=== PATIENT | female | born 1955 | race Caucasian/White ===

== ENCOUNTER → 2016-06-17 | Outpatient (CLI) | payer OTHER ==
[~2016-06-17] MED LIST: ACET-1256 PO; ALBU1AER9 INH; ASPCH81; ASPI1TAB83 PO; ATOR-24 PO; B-CO1CAP17 PO; CALC500C70 PO; CHOL100027 PO; CLC6 PO; CLON0.5T3 PO; CLR10 PO; CMD5 PO; COLC1TAB25 PO; CTP1CL PO; CYM60 PO; DICL1GEL34 TOP; FLUT1INH INH; GLUC500C4 PO; HYOS1TAB PO; IRON1CAP2 PO; LANS30CA12 PO; LANS30CA63 PO; LEVO-459 PO; LISI-461 PO; LISI-791 PO; LPT40 PO; MAGN250T3 PO; METH4PAK PO; METO50TA16 PO; METO50TA17 PO; MOME220A INH; MRLP17 PO; MRLP527 PO; MULTTAB PO; NTRSLP4 SL; OMEG10007 PO; ONDA4TAB46 PO; RANI1TAB75 PO; RGL/5 PO; SNG10 PO; SPRIN/30 INH; TIOTCAP INH; TRAM-10 PO; VNTHFA/IN INH; WARF2TAB PO; WARF4TAB43 PO
[2016-06-17 15:37] LABS: HEMATOCRIT 34.8 % (37-47); MEAN CELL VOLUME 87.2 fL (80-100); MEAN CORPUSCULAR HEMOGLOBIN 31.1 pg (25-34); MEAN CORPUSCULAR HGB CONC 35.6 g/dl (32-36); MEAN PLATELET VOLUME 8.6 fL (7.4-10.4); PLATELET COUNT 182 K/uL (130-400); RED BLOOD COUNT 3.99 M/uL (4.2-5.4)
[2016-06-17 16:11] LABS: ALB/GLOB RATIO 1.6 (0.9-2); ALKALINE PHOSPHATASE 69 U/L (45-117); ALT/SGPT 43 U/L (12-78); AST/SGOT 35 U/L (15-37); BLOOD UREA NITROGEN 10 mg/dl (7-18); BUN/CREATININE RATIO 13.6 (10-20); CALCIUM 8.9 mg/dl (8.5-10.1); CARBON DIOXIDE 31 mmol/L (21-32); CHLORIDE 99 mmol/L (98-107); CREATININE 0.77 mg/dl (0.60-1.20); GLUCOSE 76 mg/dl (70-99); POTASSIUM 4.4 mmol/L (3.5-5.1); SODIUM 136 mmol/L (136-145)
== END | disposition home or self-care (01) ==
LOC: C.LAB1850 14:38
PROVIDERS: ATTEND Physician Assistant
DX: I25.10 Atherosclerotic heart disease of native coronary artery without angina pectoris (principal)

== ENCOUNTER 2016-09-28 14:52 | Inpatient (IN) | payer OTHER ==
[~2016-09-28] VITALS: Ht 147.3 cm; Wt 54.0 kg
[~2016-09-28 14:52] MED LIST changes: -ASPI1TAB83 PO; -ATOR-24 PO; -CLON0.5T3 PO; -COLC1TAB25 PO; -CTP1CL PO; -CYM60 PO; -DICL1GEL34 TOP; -FLUT1INH INH; -HYOS1TAB PO; -IRON1CAP2 PO; -LANS30CA63 PO; -LEVO-459 PO; -LISI-461 PO; -MAGN250T3 PO; -METH4PAK PO; -METO50TA17 PO; -MRLP527 PO; -MULTTAB PO; -RANI1TAB75 PO; -RGL/5 PO; -SNG10 PO; -SPRIN/30 INH; -TRAM-10 PO; -VNTHFA/IN INH; -WARF2TAB PO; -WARF4TAB43 PO
[2016-09-28] MEDS ORDERED: SODIUM CHLORIDE 0.9% 1000ML 1,000 ML IV STA (15:10)
[2016-09-28 15:44] LABS: INR 1.8 (0.9-1.1); PARTIAL THROMBOPLASTIN RATIO 1.5; PROTHROMBIN TIME (PATIENT) 20.2 SECONDS (9.0-12.0)
--- NOTE | 2016-09-28 15:49 | DIAGNOSTIC IMAGING REPORT ---
CHEST ONE VIEW PORTABLE CLINICAL HISTORY: Weakness. COMPARISON STUDY: Chest radiograph March 14, 2014 [place] FINDINGS: There are median sternotomy wires and a probable prosthetic cardiac valve. There is no pneumothorax. A small right pleural effusion is noted. There is mild right basilar opacity. Linear left lung opacity suggest atelectasis. There is no evidence of edema. IMPRESSION: 1. Small right pleural effusion with right basilar opacity which could reflect consolidation or atelectasis. Radiographic follow-up to ensure resolution is recommended. 2. Stable cardiomegaly without evidence of pulmonary edema. Electronically signed by: Fito Youngblood M.D. 09/28/2016 3:48 PM Dictated Date/Time: 09/28/2016 3:47 PM
[2016-09-28 15:53] LABS: ALT/SGPT 38 U/L (12-78); AST/SGOT 20 U/L (15-37); BLOOD UREA NITROGEN 9 mg/dl (7-18); BUN/CREATININE RATIO 9.9 (10-20); CALCIUM 8.3 mg/dl (8.5-10.1); CARBON DIOXIDE 24 mmol/L (21-32); CHLORIDE 97 mmol/L (98-107); CREATININE 0.91 mg/dl (0.60-1.20); GLUCOSE 98 mg/dl (70-99); MAGNESIUM 2.3 mg/dl (1.8-2.4); POTASSIUM 4.1 mmol/L (3.5-5.1); SODIUM 133 mmol/L (136-145)
[2016-09-28 16:01] LABS: ALKALINE PHOSPHATASE 78 U/L (45-117); CKMB/CK RATIO 3.8 (0-3.0); THYROID STIMULATING HORMONE 0.241 uIu/ml (0.300-4.500)
[2016-09-28] MEDS ORDERED: COLC1TAB25 PO (16:03)
[2016-09-28] MEDS ORDERED: METO50TA17 PO (16:03)
[2016-09-28] MEDS ORDERED: LISI-461 PO (16:03)
[2016-09-28] MEDS ORDERED: MAGN250T3 PO (16:03)
[2016-09-28] MEDS ORDERED: CTP1CL PO (16:03)
[2016-09-28] MEDS ORDERED: ATOR-24 PO (16:03)
[2016-09-28] MEDS ORDERED: WARF2TAB PO (16:03)
[2016-09-28] MEDS ORDERED: SPRIN/30 INH (16:03)
[2016-09-28] MEDS ORDERED: DICL1GEL34 TOP (16:03)
[2016-09-28] MEDS ORDERED: HYOS1TAB PO (16:03)
[2016-09-28] MEDS ORDERED: WARF4TAB43 PO (16:03)
[2016-09-28] MEDS ORDERED: VNTHFA/IN INH (16:03)
[2016-09-28] MEDS ORDERED: SNG10 PO (16:03)
[2016-09-28] MEDS ORDERED: FLUT1INH INH (16:03)
[2016-09-28] MEDS ORDERED: CYM60 PO (16:03)
[2016-09-28] MEDS ORDERED: ASPI1TAB83 PO (16:03)
[2016-09-28] MEDS ORDERED: RANI1TAB75 PO (16:03)
[2016-09-28] MEDS ORDERED: RGL/5 PO (16:03)
[2016-09-28] MEDS ORDERED: LANS30CA63 PO (16:03)
[2016-09-28] MEDS ORDERED: MRLP527 PO (16:03)
[2016-09-28] MEDS ORDERED: B-CO1CAP17 PO (16:03)
[2016-09-28 16:31] LABS: MEAN CELL VOLUME 87.4 fL (80-100); MEAN CORPUSCULAR HEMOGLOBIN 30.1 pg (25-34); MEAN CORPUSCULAR HGB CONC 34.4 g/dl (32-36); MEAN PLATELET VOLUME 8.4 fL (7.4-10.4); PLATELET COUNT 404 K/uL (130-400); RED BLOOD COUNT 4.12 M/uL (4.2-5.4); WHITE BLOOD COUNT 14.72 K/uL (4.8-10.8)
[2016-09-28] MEDS ORDERED: LEVAQUIN 750MG / 150ML D5W IV STA (16:39)
[2016-09-28 16:47] LABS: URINE APPEARANCE CLEAR (CLEAR); URINE BILIRUBIN NEG (NEG); URINE COLOR DK YELLOW; URINE EPITHELIAL CELL AUTO >30 /lpf (0-5); URINE NITRITE NEG (NEG); URINE SPECIFIC GRAVITY 1.017 (1.000-1.030); UROBILINOGEN NEG (NEG)
[2016-09-28 16:56] LABS: MANUAL MICROSCOPIC REQUIRED? NO; REVIEW REQ? YES
[2016-09-28 17:16] LABS: BASO % 0.1 %; BASO ABS # 0.01 K/uL (0-0.2); COMPLETE YES; EOS % 0.5 %; IG% 1.2 %; LYMPH % 5.1 %; LYMPH ABS # 0.75 K/uL (1.2-3.4); MONO % 3.1 %
[2016-09-28 17:44] VITALS: BP 130/77; PULSE 91; TEMP 36.9; O2SAT 96; Ht 147.3 cm; Wt 54.0 kg
[2016-09-28] MEDS ORDERED: ONDANSETRON INJ 2 MG/ML 2 ML VIAL IV PRN (18:15)
[2016-09-28] MEDS ORDERED: ALBUT/IPRATROP 3MG/0.5MG NEB 3 ML VIAL INH PRN (18:15)
[2016-09-28] MEDS ORDERED: ACETAMINOPHEN 325 MG TAB PO PRN (18:15)
[2016-09-28] MEDS ORDERED: ALBUTEROL HFA 8 GM INHALER INH PRN (18:30)
[2016-09-28] MEDS ORDERED: NITROGLYCERIN 0.4 MG SL PER TAB CHARGE SL PRN (18:30)
--- NOTE | 2016-09-28 18:43 | History and Physical ---
History & Physical Date & Time of Service: Sep 28, 2016 at 18:42 Chief Complaint: Sore throat, rash Primary Care Physician: Radha Rodriguez M.D. History of Present Illness Source: patient This is a 61yo F with a PMH of CAD s/p STEMI with balloon angioplasty in 2013, cardiomyopathy, h/o multiple valvular disease with aortic valve replacement (on coumadin), h/o Vfib, COPD (mild), HLD and JC who presents to the ED with a sore throat, generalized weakness and a rash over entire body. Patient started to experience sore throat, cough and weakness a week ago that has since worsened. Went to see [facility] Weinberg a few days ago and was started on a Z-Pack and Steroids. Yesterday, patient started to develop a rash on arms and legs that has continued to spread to trunk and face. Patient also started to experience chills, swelling in hands and feet, a decrease in appetite, diarrhea (3x/day) and some MSK pain in shoulders and back. Returned to PCP today for the worsening rash and was directed to the ED for further evaluation. Denies a history of similar rashes and states that it neither is painful or itchy. Denies any headaches, visual disturbances, difficulty swallowing, rhinorrhea, chest pain, dyspnea, SOB, wheezing, abdominal pain, n/v, difficulty ambulating or myalgias. Past Medical/Surgical History Medical Problems: (1) COPD (chronic obstructive pulmonary disease) Status: Chronic (2) Esophageal reflux Status: Chronic (3) Generalized anxiety disorder Status: Chronic (4) Osteoarthrosis Status: Chronic (5) Tricuspid valve disease Status: Chronic Family History Kidney disease SISTER Social History Smoking Status: Former Smoker Drug Use: none Marital Status: Housing status: lives with family Multi-Drug Resistant Organisms History of MDRO: No Allergies Coded Allergies: Paroxetine (Verified Allergy, Unknown, UNKNOWN, 03/13/14) INFO FROM [facility] Sumatriptan (Verified Allergy, Unknown, UNKNOWN, 03/13/14) INFO FROM [facility] Citalopram (Verified Adverse Reaction, Intermediate, AGITATION, BURNING SENSATION, 02/10/11) Dicyclomine (Verified Adverse Reaction, Intermediate, HEADACHE, 02/10/11) Home Medications Scheduled Aspirin (Aspirin), 1 TAB PO DAILY Atorvastatin (Lipitor), 40 MG PO DAILY Calcium/Vitamin D (Os-David 500 Plus D), 2 TAB PO DAILY Clonidine Hcl (Catapres), 0.1 MG PO HS Colchicine (Colchicine), 1 TAB PO BID Diclofenac Sodium (Topical) (Diclofenac Sodium), 2 GM TOP BID Duloxetine HCl (Duloxetine HCl), 60 MG PO DAILY Fish Oil ([place]-3), 1 CAP PO BID Fluticasone Furoate-Vilanterol (Breo Ellipta), 1 PUFF INH DAILY Iron Combinations (Iron Complex), 1 CAP PO DAILY Lansoprazole (Prevacid), 30 MG PO DAILY Magnesium (Magnesium 250 mg), 500 MG PO DAILY Metoclopramide HCl (Metoclopramide HCl), 5 MG PO DAILY Metoprolol Tartrate (Metoprolol Tartrate), 50 MG PO BID Montelukast Sod (Montelukast Sodium), 10 MG PO DAILY Multivitamins/Minerals (Mvi With Minerals), 1 TAB PO DAILY Ranitidine HCl (Ranitidine 75), 75 MG PO DAILY Tiotropium [place] (Spiriva Handihaler), 1 CAP INH DAILY Vitamin B Cmplx/Vitc/Folic Ac (Nephrocaps), 1 CAP PO DAILY Warfarin Sodium (Warfarin Sodium), 4 MG PO 6XWK Warfarin Sodium (Coumadin), 6 MG PO THURS Scheduled PRN Albuterol Hfa (Ventolin Hfa), 2 PUFF INH Q4 PRN for Wheezing Nitroglycerin (Nitrostat), 0.4 MG SL UD PRN for Chest Pain Polyethylene (Polyethylene Glycol 3350), 17 GM PO TID PRN for Constipation Tramadol (Ultram), 50 MG PO Q6 PRN for Pain Review of Systems Ten systems negative except as noted in HPI. Physical Exam Vital Signs Date Time Temp Pulse Resp B/P (MAP) Pulse Ox O2 Delivery O2 Flow Rate FiO2 09/28/16 17:44 36.9 91 16 130/77 96 Room Air 09/28/16 17:30 91 16 130/77 96 Room Air 09/28/16 16:30 83 16 130/76 97 Room Air 09/28/16 16:01 91 Room Air 09/28/16 15:56 86 123/72 86 125/91 90 113/86 09/28/16 15:23 85 09/28/16 14:55 36.9 84 20 108/66 94 Room Air General Appearance: WD/WN, no apparent distress Head: normocephalic, atraumatic Eyes: normal inspection ENT: normal ENT inspection, hearing grossly normal, pharynx normal, + nasal congestion Neck: supple, no adenopathy Respiratory/Chest: chest non-tender, lungs clear, normal breath sounds, no respiratory distress Cardiovascular: regular rate, rhythm, + systolic murmur Abdomen/GI: normal bowel sounds, non tender, soft Back: normal inspection Extremities/Musculoskelatal: normal inspection, + pedal edema (trace), + pertinent finding (Trace swelling noted on bilateral hands. AROM and AHSAN fully intact. ) Neurologic/Psych: no motor/sensory deficits, alert, normal mood/affect, normal reflexes, oriented x 3 Skin: + rash (Non-blanching petechial rash noted bilaterally on LE below knees. Reddish pink, papular rash with some areas of red patching noted on face , UE, trunk, groin and LE. Larger, reddish-pink patches were observed on extensor surfaces of hands with associated warmth.) Lymphatic: no adenopathy Diagnostics Laboratory Results Results Past 24 Hours Test 09/28/16 15:12 09/28/16 16:00 09/28/16 16:42 Range/Units White Blood Count 14.72 4.8-10.8 K/uL Red Blood Count 4.12 4.2-5.4 M/uL Hemoglobin 12.4 12.0-16.0 g/dL Hematocrit 36.0 37-47 % Mean Corpuscular Volume 87.4 80-100 fL Mean Corpuscular Hemoglobin 30.1 25-34 pg Mean Corpuscular Hemoglobin Concent 34.4 32-36 g/dl Platelet Count 404 130-400 K/uL Mean Platelet Volume 8.4 7.4-10.4 fL Neutrophils (%) (Auto) 90.0 % Lymphocytes (%) (Auto) 5.1 % Monocytes (%) (Auto) 3.1 % Eosinophils (%) (Auto) 0.5 % Basophils (%) (Auto) 0.1 % Neutrophils # (Auto) 13.26 1.4-6.5 K/uL Lymphocytes # (Auto) 0.75 1.2-3.4 K/uL Monocytes # (Auto) 0.45 0.11-0.59 K/uL Eosinophils # (Auto) 0.08 0-0.5 K/uL Basophils # (Auto) 0.01 0-0.2 K/uL RDW Standard Deviation 43.8 36.4-46.3 fL RDW Coefficient of Variation 13.7 11.5-14.5 % Immature Granulocyte % (Auto) 1.2 % Immature Granulocyte # (Auto) 0.17 0.00-0.02 K/uL Erythrocyte Sedimentation Rate 75 0-21 mm/hr Prothrombin Time 20.2 9.0-12.0 SECONDS Prothromb Time International Ratio 1.8 0.9-1.1 Activated Partial Thromboplast Time 38.0 21.0-31.0 SECONDS Partial Thromboplastin Ratio 1.5 Sodium Level 133 136-145 mmol/L Potassium Level 4.1 3.5-5.1 mmol/L Chloride Level 97 98-107 mmol/L Carbon Dioxide Level 24 21-32 mmol/L Anion Gap 12.0 3-11 mmol/L Blood Urea Nitrogen 9 7-18 mg/dl Creatinine 0.91 0.60-1.20 mg/dl Est Creatinine Clear Calc Drug Dose 46.7 ml/min Estimated GFR () 78.4 Estimated GFR (Non- 67.6 BUN/Creatinine Ratio 9.9 10-20 Random Glucose 98 70-99 mg/dl Calcium Level 8.3 8.5-10.1 mg/dl Magnesium Level 2.3 1.8-2.4 mg/dl Total Bilirubin 0.7 0.2-1 mg/dl Direct Bilirubin 0.3 0-0.2 mg/dl Aspartate Amino Transf (AST/SGOT) 20 15-37 U/L Alanine Aminotransferase (ALT/SGPT) 38 12-78 U/L Alkaline Phosphatase 78 45-117 U/L Total Creatine Kinase 64 26-192 U/L Creatine Kinase MB 2.4 0.5-3.6 ng/ml Creatine Kinase MB Ratio 3.8 0-3.0 Troponin I < 0.015 0-0.045 ng/ml C-Reactive Protein 31.30 0-0.29 mg/dl Total Protein 7.0 6.4-8.2 gm/dl Albumin 2.6 3.4-5.0 gm/dl Lipase 72 73-393 U/L Procalcitonin 0.81 0-0.5 ng/ml Thyroid Stimulating Hormone (TSH) 0.241 0.300-4.500 uIu/ml Anti-Streptolysin O Antibody Screen NEG <200 IU IU/ml Urine Color DK YELLOW Urine Appearance CLEAR CLEAR Urine pH 7.0 4.5-7.5 Urine Specific [place] 1.017 1.000-1.030 Urine Protein 1+ NEG Urine Glucose (UA) NEG NEG Urine Ketones TRACE NEG Urine Occult Blood TRACE NEG Urine Nitrite NEG NEG Urine Bilirubin NEG NEG Urine Urobilinogen NEG NEG Urine Leukocyte Esterase NEG NEG Urine WBC (Auto) 1-5 0-5 /hpf Urine RBC (Auto) 5-10 0-4 /hpf Urine Hyaline Casts (Auto) 1-5 0-5 /lpf Urine Epithelial Cells (Auto) >30 0-5 /lpf Urine Bacteria (Auto) NEG NEG Urine Renal Epithelial Cells 0-5 0-5 /lpf Urine Yeast (Auto) PRESENT NONE PRSENT Bedside Lactic Acid Venous 1.48 0.90-1.70 mmol/L Microbiology Results 09/28/16 Blood Culture, Received Pending 09/28/16 Blood Culture, Received Pending 09/28/16 Urine Culture, Received Pending Diagnostic Radiology Chest XR 1 view (09/28/16): IMPRESSION: 1. Small right pleural effusion with right basilar opacity which could reflect consolidation or atelectasis. Radiographic follow-up to ensure resolution is recommended. 2. Stable cardiomegaly without evidence of pulmonary edema. EKG Normal sinus rhythm Left anterior fascicular block Septal infarct (cited on or before 22-DEC-2010) Abnormal ECG Impression Assessment and Plan This is a 61yo F with a PMH of CAD s/p STEMI with balloon angioplasty in 2013, cardiomyopathy, h/o multiple valvular disease with aortic valve repair (on coumadin), h/o Vfib, COPD (mild), HLD and JC who was diagnosed with PNA and a rash consistent with an allergic reaction. Pneumonia: -Portable Chest XR with "Small right pleural effusion with right basilar opacity which could reflect consolidation or atelectasis" -ordered AP and Lateral views tomorrow for further evaluation -has leukocytosis of 14.72 on admission. Vitals all wnl -started on Levoquin 750mg IV Q24 -blood and sputum cultures pending Rash: -most likely a drug-induced hypersensitivity reaction to macrolide; also started to have diarrhea and chills at the same time as rash, which are commonly present in adverse drug reactions -could be 2/2 infection, but strep test was negative -considered petechial component to be 2/2 bleeding on coumadin, but INR is sub- therapeutic so seems unlikely -given solumedrol IV 60mg in ED and will start a 6-day medrol dosepack PO tomorrow AM -will continue monitoring rash H/o aoritc valve replacement (on coumadin) -INR has been fluctuating lately; seen by Dr. Morales yesterday and Warfarin dose was adjusted to 4mg daily except for 6mg on -INR subtherapeutic at time of admission at 1.8. Will re-check in the AM -per chart review, extensive hx of congenital HD, s/p aortic valve replacement and subsequent repair. H/o multiple valvular disease. Extensive cardiac history (cardiomyopathy, h/o vfib): -Followed closely by Dr. Morales -continue home meds and monitor closely -ECG: Normal sinus rhythm Left anterior fascicular block Septal infarct (cited on or before 22-DEC-2010) Low TSH: -TSH of 0.241 at admission -denies hx of thyroid disease -no palpitations, sweating, thinning of hair, increased appetite -will check Free T4 in AM HTN: stable -continue home meds JC: stable -continue home meds VTE ppx: coumadin Code Status: Full Dispo: Med/surg PCP: Ryan Agree with above h and p. Briefly 61F presents with generalized rash accompanied by diarrhea developed after starting z mary alice for her sore throat and cough one day prior. Denies any pain or itching. Was having sore throat and cough for few days now. Afebrile. No chest pain. Hemodynamics stable currently. P/e Ge not in distress Cvs s1 and s2 heard, no murmurs Rs cta b/l no added sounds Abd benign Skin Generalized maculopapular rash Barrel Lapper non focal a/p pneumonia started on Levaquin f/u Chest p/lateral view generalized rah mostly from z mary alice steroids df/u Avr on Coumadin f/u inr Level of Care Med/Surg Advanced Directives Existing Living Will: No Existing Power of Camera Machinist: No Resuscitation Status FULL RESUSCITATION VTE Prophylaxis VTE Risk Assessment Done? Y/N: Yes Risk Level: Moderate Given or contraindicated: Warfarin (Coumadin) Social Service Consult None Apply
[2016-09-28 18:47] VITALS: O2SAT 95
[2016-09-28] MEDS: TRAMADOL HCL 50 MG TAB PO PRN (19:19)
[2016-09-28 19:30] VITALS: BP 118/74; PULSE 94; TEMP 36.4; O2SAT 95
[2016-09-28] MEDS: WARFARIN SOD 4 MG TAB PO SCH (20:22)
[2016-09-28] MEDS ORDERED: METHYLPREDNISOLONE IV 60 MG in SYRINGE 0 ML IV ONE (20:30)
[2016-09-28] MEDS ORDERED: LORAZEPAM 0.5 MG TAB PO STA (20:30)
[2016-09-28 20:31] VITALS: BP 107/73; PULSE 94
[2016-09-28] MEDS: METOPROLOL TARTRATE 50 MG TAB PO SCH (20:31)
[2016-09-28] MEDS: COLCHICINE 0.6 MG TAB PO SCH (20:32)
[2016-09-28] MEDS: CLONIDINE HCL 0.1 MG TAB PO SCH (20:47)
[2016-09-28] MEDS ORDERED: IRON1CAP2 PO (21:24)
[2016-09-28] MEDS ORDERED: TRAM-10 PO (21:24)
[2016-09-28] MEDS ORDERED: MULTTAB PO (21:24)
[2016-09-28] MEDS ORDERED: CLON0.5T3 PO (21:24)
[2016-09-28] MEDS ORDERED: KETOROLAC TROMETHAMINE 15 MG/ML VIAL ONE (21:44)
[2016-09-28] MEDS ORDERED: KETOROLAC TROMETHAMINE 15 MG/ML VIAL IV. PRN (21:45)
--- NOTE | 2016-09-28 22:25 | EMERGENCY ROOM VISIT NOTE ---
History Report prepared by Bhavesh: Adele Minor Under the Supervision of: Dr. Hipolito Lua M.D. First contact with patient: 15:09 Chief Complaint: WEAKNESS Stated Complaint: WEAK,RASH LEGS/ARMS, EARACHE, MICHELLE, NO CHYNA Nursing Triage Summary: c/o weakness and diarrhea no appetite and sore throat 1 wk pain in bilateral shoulders and lower back coumadin levels have been fluctuating rash all over History of Present Illness The patient is a 61 year old female who presents to the Emergency Room with complaints of constant weakness beginning 1 week ago. The patient states that she has been extremely tired over the last week but has not been exerting herself. She reports that she developed a rash on her face that is now on her entire body. She notes that she went to see her PCP, Dr. Rodriguez, today and was told to come in to the ED to have her heart checked. The patient states that she was recently on Prednisone and a Z-Pac for her sore throat but stopped taking it due to her Coumadin levels before developing a rash 3 days later. The patient complains of a sore throat, diarrhea 3 times a day, shoulder pain, back pain, fever, chills, decreased appetite, and a rash. Pt denies LOC, headache, diaphoresis, visual changes, neck pain, chest pain, breathing difficulties, nausea, vomiting, abdominal pain, melena, hematochezia, urinary symptoms, numbness, lymphadenopathy, or other complaints. She notes that she previously has thrush on her tongue that has been treated and went away. The patient rates her throat pain as a 4/10 in severity and notes that she took NyQuil with some relief of her symptoms. She notes a cardiac history and states that she has had an aortic valve replacement. Source of History: patient Onset: 1 week ago Position: other (global) Symptom Intensity: 4/10 Quality: other (weakness) Timing: constant Note: The patient complains of a sore throat, diarrhea 3 times a day, shoulder pain, back pain, fever, chills, decreased appetite, and a rash. Pt denies LOC, headache, diaphoresis, visual changes, neck pain, chest pain, breathing difficulties, nausea, vomiting, abdominal pain, melena, hematochezia, urinary symptoms, numbness, lymphadenopathy, or other complaints. Review of Systems See HPI for pertinent positives and negatives. A total of ten systems were reviewed and were otherwise negative. Past Medical & Surgical Medical Problems: (1) CAD S/P percutaneous coronary angioplasty (2) COPD (chronic obstructive pulmonary disease) (3) Esophageal reflux (4) Generalized anxiety disorder (5) History of ST elevation myocardial infarction (STEMI) (6) History of ventricular fibrillation (7) Osteoarthrosis (8) Tricuspid valve disease Surgical Problems: (1) H/O aortic root repair (2) H/O aortic valve replacement (3) History of bowel resection Family History No pertinent family history stated. Social History Smoking Status: Former Smoker Alcohol Use: none Drug Use: none Marital Status: Housing Status: lives with family Current/Historical Medications Scheduled Aspirin (Aspirin), 1 TAB PO DAILY Atorvastatin (Lipitor), 40 MG PO DAILY Calcium/Vitamin D (Os-David 500 Plus D), 2 TAB PO DAILY Clonidine Hcl (Catapres), 0.1 MG PO HS Colchicine (Colchicine), 1 TAB PO BID Diclofenac Sodium (Topical) (Diclofenac Sodium), 2 GM TOP BID Duloxetine HCl (Duloxetine HCl), 60 MG PO DAILY Fish Oil ([place]-3), 1 CAP PO BID Fluticasone Furoate-Vilanterol (Breo Ellipta), 1 PUFF INH DAILY Iron Combinations (Iron Complex), 1 CAP PO DAILY Lansoprazole (Prevacid), 30 MG PO DAILY Magnesium (Magnesium 250 mg), 500 MG PO DAILY Metoclopramide HCl (Metoclopramide HCl), 5 MG PO DAILY Metoprolol Tartrate (Metoprolol Tartrate), 50 MG PO BID Montelukast Sod (Montelukast Sodium), 10 MG PO DAILY Multivitamins/Minerals (Mvi With Minerals), 1 TAB PO DAILY Ranitidine HCl (Ranitidine 75), 75 MG PO DAILY Tiotropium Gregory (Spiriva Handihaler), 1 CAP INH DAILY Vitamin B Cmplx/Vitc/Folic Ac (Nephrocaps), 1 CAP PO DAILY Warfarin Sodium (Warfarin Sodium), 4 MG PO 6XWK Warfarin Sodium (Coumadin), 6 MG PO THURS Scheduled PRN Albuterol Hfa (Ventolin Hfa), 2 PUFF INH Q4 PRN for Wheezing Nitroglycerin (Nitrostat), 0.4 MG SL UD PRN for Chest Pain Polyethylene (Polyethylene Glycol 3350), 17 GM PO TID PRN for Constipation Tramadol (Ultram), 50 MG PO Q6 PRN for Pain Allergies Coded Allergies: Paroxetine (Verified Allergy, Unknown, UNKNOWN, 03/13/14) INFO FROM [facility] Sumatriptan (Verified Allergy, Unknown, UNKNOWN, 03/13/14) INFO FROM [facility] Citalopram (Verified Adverse Reaction, Intermediate, AGITATION, BURNING SENSATION, 02/10/11) Dicyclomine (Verified Adverse Reaction, Intermediate, HEADACHE, 02/10/11) Physical Exam Vital Signs Date Time Temp Pulse Resp B/P (MAP) Pulse Ox O2 Delivery O2 Flow Rate FiO2 09/28/16 17:44 36.9 91 16 130/77 96 Room Air 09/28/16 17:30 91 16 130/77 96 Room Air 09/28/16 16:30 83 16 130/76 97 Room Air 09/28/16 16:01 91 Room Air 09/28/16 15:56 86 123/72 86 125/91 90 113/86 09/28/16 15:23 85 09/28/16 14:55 36.9 84 20 108/66 94 Room Air Physical Exam GENERAL: Awake, alert, well-appearing, in no distress HENT: Normocephalic, atraumatic. Oropharynx unremarkable. EYES: Normal conjunctiva. Sclera non-icteric. NECK: Supple. No nuchal rigidity. FROM. No JVD. RESPIRATORY: Clear to auscultation. CARDIAC: Regular rate, normal rhythm. Extremities warm and well perfused. Pulses equal. Systolic ejection murmur, prominent heart valve sounds. ABDOMEN: Soft, non-distended. No tenderness to palpation. No rebound or guarding. No masses. RECTAL: Deferred. MUSCULOSKELETAL: Chest examination reveals no tenderness. The back is symmetrical on inspection without obvious abnormality. There is no CVA tenderness to palpation. No joint edema. LOWER EXTREMITIES: Calves are equal size bilaterally and non-tender. No edema. No discoloration. NEURO: Normal sensorium. No sensory or motor deficits noted. SKIN: Erythematous non blanching petechial rash on lower legs. Warm erythematous patches on the upper extremities, face, trunk, and back. Medical Decision & Procedures ER Provider Diagnostic Interpretation: X-ray: Per my interpretation, radiologist review. CHEST ONE VIEW PORTABLE FINDINGS: There are median sternotomy wires and a probable prosthetic cardiac valve. There is no pneumothorax. A small right pleural effusion is noted. There is mild right basilar opacity. Linear left lung opacity suggest atelectasis. There is no evidence of edema. IMPRESSION: 1. Small right pleural effusion with right basilar opacity which could reflect consolidation or atelectasis. Radiographic follow-up to ensure resolution is recommended. 2. Stable cardiomegaly without evidence of pulmonary edema. Electronically signed by: Fito Youngblood M.D. 09/28/2016 3:48 PM Dictated Date/Time: 09/28/2016 3:47 PM Laboratory Results 09/28/16 15:12 Red Blood Count 4.12, Mean Corpuscular Volume 87.4, Mean Corpuscular Hemoglobin 30.1, Mean Corpuscular Hemoglobin Concent 34.4, Mean Platelet Volume 8.4, Neutrophils (%) (Auto) 90.0, Lymphocytes (%) (Auto) 5.1, Monocytes (%) (Auto) 3.1, Eosinophils (%) (Auto) 0.5, Basophils (%) (Auto) 0.1, Neutrophils # (Auto) 13.26, Lymphocytes # (Auto) 0.75, Monocytes # (Auto) 0.45, Eosinophils # (Auto) 0.08, Basophils # (Auto) 0.01 09/28/16 15:12 Test 09/28/16 15:12 09/28/16 16:00 09/28/16 16:42 White Blood Count 14.72 K/uL (4.8-10.8) Red Blood Count 4.12 M/uL (4.2-5.4) Hemoglobin 12.4 g/dL (12.0-16.0) Hematocrit 36.0 % (37-47) Mean Corpuscular Volume 87.4 fL (80-100) Mean Corpuscular Hemoglobin 30.1 pg (25-34) Mean Corpuscular Hemoglobin Concent 34.4 g/dl (32-36) Platelet Count 404 K/uL (130-400) Mean Platelet Volume 8.4 fL (7.4-10.4) Neutrophils (%) (Auto) 90.0 % Lymphocytes (%) (Auto) 5.1 % Monocytes (%) (Auto) 3.1 % Eosinophils (%) (Auto) 0.5 % Basophils (%) (Auto) 0.1 % Neutrophils # (Auto) 13.26 K/uL (1.4-6.5) Lymphocytes # (Auto) 0.75 K/uL (1.2-3.4) Monocytes # (Auto) 0.45 K/uL (0.11-0.59) Eosinophils # (Auto) 0.08 K/uL (0-0.5) Basophils # (Auto) 0.01 K/uL (0-0.2) RDW Standard Deviation 43.8 fL (36.4-46.3) RDW Coefficient of Variation 13.7 % (11.5-14.5) Immature Granulocyte % (Auto) 1.2 % Immature Granulocyte # (Auto) 0.17 K/uL (0.00-0.02) Erythrocyte Sedimentation Rate 75 mm/hr (0-21) Prothrombin Time 20.2 SECONDS (9.0-12.0) Prothromb Time International Ratio 1.8 (0.9-1.1) Activated Partial Thromboplast Time 38.0 SECONDS (21.0-31.0) Partial Thromboplastin Ratio 1.5 Anion Gap 12.0 mmol/L (3-11) Est Creatinine Clear Calc Drug Dose 46.7 ml/min Estimated GFR () 78.4 Estimated GFR (Non- 67.6 BUN/Creatinine Ratio 9.9 (10-20) Calcium Level 8.3 mg/dl (8.5-10.1) Magnesium Level 2.3 mg/dl (1.8-2.4) Total Bilirubin 0.7 mg/dl (0.2-1) Direct Bilirubin 0.3 mg/dl (0-0.2) Aspartate Amino Transf (AST/SGOT) 20 U/L (15-37) Alanine Aminotransferase (ALT/SGPT) 38 U/L (12-78) Alkaline Phosphatase 78 U/L (45-117) Total Creatine Kinase 64 U/L (26-192) Creatine Kinase MB 2.4 ng/ml (0.5-3.6) Creatine Kinase MB Ratio 3.8 (0-3.0) Troponin I < 0.015 ng/ml (0-0.045) C-Reactive Protein 31.30 mg/dl (0-0.29) Total Protein 7.0 gm/dl (6.4-8.2) Albumin 2.6 gm/dl (3.4-5.0) Lipase 72 U/L (73-393) Procalcitonin 0.81 ng/ml (0-0.5) Thyroid Stimulating Hormone (TSH) 0.241 uIu/ml (0.300-4.500) Hepatitis C Antibody Screen NEG (NEG) Anti-Streptolysin O Antibody Screen NEG IU/ml (<200 IU) Urine Color DK YELLOW Urine Appearance CLEAR (CLEAR) Urine pH 7.0 (4.5-7.5) Urine Specific [place] 1.017 (1.000-1.030) Urine Protein 1+ (NEG) Urine Glucose (UA) NEG (NEG) Urine Ketones TRACE (NEG) Urine Occult Blood TRACE (NEG) Urine Nitrite NEG (NEG) Urine Bilirubin NEG (NEG) Urine Urobilinogen NEG (NEG) Urine Leukocyte Esterase NEG (NEG) Urine WBC (Auto) 1-5 /hpf (0-5) Urine RBC (Auto) 5-10 /hpf (0-4) Urine Hyaline Casts (Auto) 1-5 /lpf (0-5) Urine Epithelial Cells (Auto) >30 /lpf (0-5) Urine Bacteria (Auto) NEG (NEG) Urine Renal Epithelial Cells 0-5 /lpf (0-5) Urine Yeast (Auto) PRESENT (NONE PRSENT) Bedside Lactic Acid Venous 1.48 mmol/L (0.90-1.70) Laboratory results reviewed by me Medications Administered Medications (Trade) Dose Ordered Sig/Rebecca Route Start Time Stop Time Status Last Admin Dose Admin Sodium Chloride 1,000 ml @ 125 mls/hr Q8H STAT IV 09/28/16 15:10 09/28/16 19:59 DC 09/28/16 15:59 125 MLS/HR Levofloxacin (Levaquin / D5W) 750 mg NOW STAT IV 09/28/16 16:39 09/28/16 16:41 DC 09/28/16 16:49 750 MG ECG Indication: weakness Rate (beats per minute): 88 Rhythm: normal sinus Findings: LAFB, Q waves (Septal), no acute ischemic change, no ectopy ED Course 1509: The patient was evaluated in room A4. A complete history and physical exam was performed. 1510: Sodium Chloride 1000 ml @ 125 mls/hr IV. 1631: I updated the patient and her family. Her X-Ray was concerning for pneumonia and she will be getting antibiotics. 1639: Levofloxacin 750mg IV. 1640: I reevaluated and updated the patient. 1645: I spoke Debby Stokes PA-C of [place]. She will evaluate the patient for further care and management. 1657: Upon reexamination, the patient was doing well. I discussed the test results and treatment plan with her. The patient will be evaluated for further management. Medical Decision Triage Nursing notes reviewed. The patient's presentation and history were concerning for rash, fever, and weakness. Etiologies such as Allergic reaction, metabolic, infection, hypo/hyperglycemia , electrolyte abnormalities, cardiac sources, intracerebral event, toxicologic, neurologic, as well as others were entertained. The patient was evaluated. She had macular patchy rash in the upper extremities that was blanching. She had a nonblanching petechial like rash in the lower extremities. She has an extensive heart history. Blood work was obtained. Inflammatory markers and INR were ordered. Imaging performed. The patient has a pneumonia. She has a leukocytosis as well as elevated inflammatory markers. The etiology of the rash is not obvious. Her ASO titer was negative. This may be related to her Zithromax use but infection is also a possibility. The patient was given IV Levaquin. She was hydrated. Consultation was made with internal medicine. The patient was evaluated in the Emergency Room for further management. Medication Reconciliation: I attest that I have personally reviewed the patient' s current medication list Patient was found to have a slightly elevated blood pressure due to illness. I do not believe that the patient requires emergent hypertension monitoring. Consults Time Called: 1642 Consulting Physician: Debby Aceves Returned Call: 164 I spoke Debby Stokes PA-C of [place]. She will evaluate the patient for further care and management. Impression Primary Impression: Pneumonia Additional Impression: Rash Scribe Attestation The scribe's documentation has been prepared under my direction and personally reviewed by me in its entirety. I confirm that the note above accurately reflects all work, treatment, procedures, and medical decision making performed by me. Departure Information Dispostion Being Evaluated By Hospitalist Radha Jansen M.D. (PCP) Patient Instructions [facility] Problem Qualifiers
[2016-09-28] MEDS ORDERED: KETOROLAC TROMETHAMINE 15 MG/ML VIAL IV. ONE (22:30)
[2016-09-28 23:52] VITALS: BP 95/61; PULSE 71; TEMP 36.8; O2SAT 96
[2016-09-29] MEDS: METHYLPREDNISOLONE 4 MG TAB PO SCH ×4 (06:32→21:11)
[2016-09-29 06:57] VITALS: BP_SYST 105; BP_SYST 111; BP_SYST 120; BP_DIAS 68; BP_DIAS 70; BP_DIAS 71; PULSE 71; PULSE 73; TEMP 36.6; O2SAT 96
[2016-09-29] MEDS ORDERED: MAGNESIUM PO SCH (08:00)
[2016-09-29 08:05] LABS: MEAN CELL VOLUME 87.3 fL (80-100); MEAN CORPUSCULAR HEMOGLOBIN 30.7 pg (25-34); MEAN CORPUSCULAR HGB CONC 35.2 g/dl (32-36); PLATELET COUNT 302 K/uL (130-400); RED BLOOD COUNT 3.78 M/uL (4.2-5.4); WHITE BLOOD COUNT 14.55 K/uL (4.8-10.8)
[2016-09-29 08:15] LABS: INR 2.1 (0.9-1.1); PROTHROMBIN TIME (PATIENT) 23.1 SECONDS (9.0-12.0)
[2016-09-29] MEDS: PANTOprazole SOD 40 MG TAB PO SCH (08:19)
[2016-09-29] MEDS: COLCHICINE 0.6 MG TAB PO SCH ×2 (08:19→20:11)
[2016-09-29] MEDS: METOCLOPRAMIDE HCL 5 MG TAB PO SCH (08:19)
[2016-09-29] MEDS: ASPIRIN 81 MG ECTAB PO SCH (08:19)
[2016-09-29] MEDS: NEPHROCAPS PO SCH (08:20)
[2016-09-29] MEDS: METOPROLOL TARTRATE 50 MG TAB PO SCH ×2 (08:20→20:11)
[2016-09-29] MEDS: ATORVASTATIN 20 MG TAB PO SCH (08:20)
[2016-09-29] MEDS: DULOXETINE HCL 60 MG CAP PO SCH (08:20)
[2016-09-29] MEDS: CALCIUM 600MG + VIT D 400 IU TAB PO SCH (08:20)
[2016-09-29] MEDS: TIOTROPIUM BROMIDE 5 PUFF/90 MCG INH INH SCH (08:21)
[2016-09-29 08:41] LABS: BUN/CREATININE RATIO 18.2 (10-20); CREATININE 0.87 mg/dl (0.60-1.20); POTASSIUM 3.9 mmol/L (3.5-5.1)
[2016-09-29 08:55] LABS: COMPLETE YES; ECHINOCYTES 1+; IG% 0.5 %; LYMPH % 1.9 %; LYMPH ABS # 0.28 K/uL (1.2-3.4); MONO % 1.3 %; NEUT % 96.3 %; TOXIC GRANULATION 1+
[2016-09-29] MEDS ORDERED: METHYLPREDNISOLONE 4MG TAB, 6 DAY TAPER PO SCH (09:00)
--- NOTE | 2016-09-29 10:56 | DIAGNOSTIC IMAGING REPORT ---
CHEST 2 VIEWS ROUTINE HISTORY: 61 years Female acute cough with concern for pneumonia. COMPARISON: Portable chest radiograph 09/28/2016 TECHNIQUE: Frontal and lateral views of the chest. FINDINGS: Prior median sternotomy and prosthetic cardiac valve placement. Cardiac silhouette is again enlarged. There is atherosclerosis of the aorta. No pneumothorax is seen. The left lung is clear. No overt pulmonary edema. There is persistent small right pleural effusion with subsegmental right basilar opacity, not significantly changed from comparison. There is a new area of linear subsegmental atelectasis in the right perihilar lung. Bones are grossly intact. Upper abdominal structures are within normal limits. IMPRESSION: 1. Small right pleural effusion with similar appearance of the right basilar consolidation suggesting atelectasis or pneumonia. 2. New linear atelectasis of the right perihilar lung. 3. Cardiomegaly without overt pulmonary edema. The above report was generated using voice recognition software. It may contain grammatical, syntax or spelling errors. Electronically signed by: Kory Myers M.D. 09/29/2016 10:55 AM Dictated Date/Time: 09/29/2016 10:52 AM
[2016-09-29] MEDS: WARFARIN SOD 4 MG TAB PO SCH (15:32)
[2016-09-29 15:53] VITALS: BP 109/70; PULSE 72; TEMP 36.7; O2SAT 94
[2016-09-29 16:36] VITALS: BP_SYST 114; BP_SYST 115; BP_SYST 117; BP_DIAS 71; BP_DIAS 74; BP_DIAS 75; PULSE 72; PULSE 75; PULSE 80
--- NOTE | 2016-09-29 16:51 | Progress Note ---
Subjective Date of Service: Sep 29, 2016. Subjective Pt evaluation today including: conversation w/ patient, physical exam, lab review, review of studies, review of inpatient medication list Saw/examined the patient in room 461 No problems/issues to note today rash improving no fevers/chills today no cough or shortness of breath Problem List Medical Problems: (1) Pneumonia Status: Acute (2) Rash Status: Acute Review of Systems Constitutional: No fever, No chills, No weakness Respiratory: No cough, No sputum, No wheezing, No shortness of breath, No dyspnea on exertion, No dyspnea at rest, No hemoptysis Cardiac: No chest pain Abdomen: No pain, No nausea, No vomiting, No diarrhea Heme: No abnormal bleeding/bruising Skin: + rash Medications Current Inpatient Medications Medications (Trade) Dose Ordered Sig/Rebecca Route Start Time Stop Time Status Last Admin Dose Admin Acetaminophen (Tylenol Tab) 650 mg Q4H PRN PO 09/28/16 18:15 10/28/16 18:14 09/28/16 20:18 650 MG Ondansetron HCl (Zofran Inj) 4 mg Q6H PRN IV 09/28/16 18:15 10/28/16 18:14 Levofloxacin 750 mg/Prmx 150 ml @ 100 mls/hr Q24H IV 09/29/16 17:00 10/05/16 16:59 Albuterol/ Ipratropium (Duoneb) 3 ml Q4R PRN INH 09/28/16 18:15 10/28/16 18:14 Albuterol (Ventolin Hfa Inhaler) 2 puffs Q4 PRN INH 09/28/16 18:30 10/28/16 18:29 Aspirin (Ecotrin Tab) 81 mg DAILY PO 09/29/16 08:00 10/29/16 08:59 09/29/16 08:19 81 MG Atorvastatin Calcium (Lipitor Tab) 40 mg DAILY PO 09/29/16 08:00 10/29/16 08:59 09/29/16 08:20 40 MG Calcium/Vitamin D (Caltrate Plus Tab) 2 tab DAILY PO 09/29/16 08:00 10/29/16 08:59 09/29/16 08:20 2 TAB Clonidine HCl (Catapres Tab) 0.1 mg HS PO 09/28/16 21:00 10/28/16 20:59 09/28/16 20:47 0.1 MG Colchicine (Colchicine Tab) 0.6 mg BID PO 09/28/16 20:00 10/28/16 20:59 09/29/16 08:19 0.6 MG Duloxetine HCl (Cymbalta Cap) 60 mg DAILY PO 09/29/16 08:00 10/29/16 08:59 09/29/16 08:20 60 MG Metoclopramide HCl (Reglan Tab) 5 mg DAILY PO 09/29/16 08:00 10/29/16 08:59 09/29/16 08:19 5 MG Metoprolol Tartrate (Lopressor Tab) 50 mg BID PO 09/28/16 20:00 10/28/16 20:59 09/29/16 08:20 50 MG Montelukast Sodium (Singulair Tab) 10 mg HS PO 09/29/16 22:00 10/29/16 21:59 Nitroglycerin (Nitrostat Tab) 0.4 mg UD PRN SL 09/28/16 18:30 10/28/16 18:29 Tiotropium [place] (Spiriva Handihaler Inhaler) 30 puff DAILY INH 09/29/16 08:00 10/29/16 08:59 09/29/16 08:21 1 PUFF Tramadol HCl (Ultram Tab) 50 mg Q6 PRN PO 09/28/16 18:30 10/28/16 18:29 09/28/16 19:19 50 MG Vitamin B Complex/ Vit C/Folic Acid (Nephrocaps) 1 cap DAILY PO 09/29/16 08:00 10/29/16 08:59 09/29/16 08:20 1 CAP Warfarin Sodium (Coumadin Tab) 4 mg SuMoTuWeFrSa@1600 PO 09/28/16 20:00 10/28/16 19:59 09/29/16 15:32 4 MG Warfarin Sodium (Coumadin Tab) 6 mg Q7D@1600 PO 09/30/16 16:00 10/30/16 15:59 Miscellaneous Information (Order Awaiting Action) 1 ea QS N/A 09/29/16 00:00 10/29/16 00:00 Pantoprazole Sodium (Protonix Tab) 40 mg QAM PO 09/29/16 08:00 10/29/16 07:59 09/29/16 08:19 40 MG Methylprednisolone (Medrol Tab) 8 mg 07,21 PO 09/29/16 07:00 09/29/16 21:01 09/29/16 06:32 8 MG Methylprednisolone (Medrol Tab) 4 mg 13,18 PO 09/29/16 13:00 09/29/16 18:01 09/29/16 13:45 4 MG Methylprednisolone (Medrol Tab) 4 mg 07,13,18 PO 09/30/16 07:00 09/30/16 18:01 Methylprednisolone (Medrol Tab) 8 mg HS PO 09/30/16 22:00 09/30/16 22:01 Methylprednisolone (Medrol Tab) 4 mg 07,13,18,21 PO 10/01/16 07:00 10/01/16 21:01 Methylprednisolone (Medrol Tab) 4 mg 07,13,21 PO 10/02/16 07:00 10/02/16 21:01 Methylprednisolone (Medrol Tab) 4 mg 07,21 PO 10/03/16 07:00 10/03/16 21:01 Methylprednisolone (Medrol Tab) 4 mg 07 PO 10/04/16 07:00 10/04/16 07:01 Ketorolac Tromethamine (Toradol Inj) 15 mg Q6H PRN IV. 09/28/16 21:45 10/03/16 21:44 Clonazepam (Klonopin Tab) 0.5 mg TID PRN PO 09/29/16 20:00 10/29/16 19:59 Objective Vital Signs Date Time Temp Pulse Resp B/P (MAP) Pulse Ox O2 Delivery O2 Flow Rate FiO2 09/29/16 15:53 36.7 72 18 109/70 (83) 94 Room Air 09/29/16 08:00 Room Air 09/29/16 06:57 36.6 73 18 105/70 (82) 96 Room Air 71 111/71 (84) 71 120/68 (85) 09/29/16 00:00 Room Air 09/28/16 23:52 36.8 71 18 95/61 (72) 96 Room Air 09/28/16 20:31 94 107/73 (84) 09/28/16 19:30 36.4 94 20 118/74 (89) 95 Room Air 09/28/16 18:47 97 18 133/84 95 09/28/16 17:44 36.9 91 16 130/77 96 Room Air 09/28/16 17:30 91 16 130/77 96 Room Air 09/28/16 16:30 83 16 130/76 97 Room Air Physical Exam General Appearance: no apparent distress Respiratory/Chest: lungs clear, normal breath sounds, no respiratory distress, no accessory muscle use Cardiovascular: regular rate, rhythm, no edema, no murmur Abdomen: normal bowel sounds, non tender, soft Extremities: normal inspection, no pedal edema Neurologic/Psychiatric: no motor/sensory deficits, alert, normal mood/affect Skin: + rash (fading, petechial rash on the R lateral leg) Laboratory Results Last 24 Hours Test 09/28/16 16:42 09/29/16 07:45 Bedside Lactic Acid Venous 1.48 mmol/L White Blood Count 14.55 K/uL Red Blood Count 3.78 M/uL Hemoglobin 11.6 g/dL Hematocrit 33.0 % Mean Corpuscular Volume 87.3 fL Mean Corpuscular Hemoglobin 30.7 pg Mean Corpuscular Hemoglobin Concent 35.2 g/dl Platelet Count 302 K/uL Mean Platelet Volume 8.0 fL Neutrophils (%) (Auto) 96.3 % Lymphocytes (%) (Auto) 1.9 % Monocytes (%) (Auto) 1.3 % Eosinophils (%) (Auto) 0.0 % Basophils (%) (Auto) 0.0 % Neutrophils # (Auto) 14.00 K/uL Lymphocytes # (Auto) 0.28 K/uL Monocytes # (Auto) 0.19 K/uL Eosinophils # (Auto) 0.00 K/uL Basophils # (Auto) 0.00 K/uL RDW Standard Deviation 44.1 fL RDW Coefficient of Variation 13.7 % Immature Granulocyte % (Auto) 0.5 % Immature Granulocyte # (Auto) 0.08 K/uL Toxic Granulation 1+ Echinocytes 1+ Prothrombin Time 23.1 SECONDS Prothromb Time International Ratio 2.1 Sodium Level 134 mmol/L Potassium Level 3.9 mmol/L Chloride Level 101 mmol/L Carbon Dioxide Level 23 mmol/L Anion Gap 10.0 mmol/L Blood Urea Nitrogen 16 mg/dl Creatinine 0.87 mg/dl Est Creatinine Clear Calc Drug Dose 48.8 ml/min Estimated GFR () 82.8 Estimated GFR (Non- 71.4 BUN/Creatinine Ratio 18.2 Random Glucose 131 mg/dl Calcium Level 8.0 mg/dl Free Thyroxine 1.52 ng/dl Assessment and Plan This is a 61 year old female with a PMH of CAD, mild cardiomyopathy, mixed diastolic-systolic CHF, COPD, depression/anxiety, HTN, HLD, hx. of V-fib, hx. of aortic valve replacement presents with a lacy, petechial rash throughout the body Drug Rash as per patient, she was started on Z-mary alice recently possibly related to Z-mary alice use? medrol dosepak started yesterday rash is resolving Community Acquired Pneumonia CXR IMPRESSION: 1. Small right pleural effusion with similar appearance of the right basilar consolidation suggesting atelectasis or pneumonia. started on Levaquin yesterday will continue for another day switch to oral meds in AM and discharge for a total of five days Hx. of Aortic Valve Replacement on Coumadin continue and INR is therapeutic Mixed Systolic-Diastolic CHF no diuretics as outpatient EF is around 45% monitor for fluid overload while inpatient can f/u with outpatient cardiology CAD continue aspirin, statin, b-raphael COPD no exacerbation no wheezing continue home inhalers Levaquin x5 days total Depression/Anxiety continue home medications DVT ppx Coumadin FULL CODE
[2016-09-29] MEDS ORDERED: LEVOFLOXACIN / D5W 750 MG in PREMIXED IN D5W 150 ML IV SCH (17:00)
[2016-09-29] MEDS: TRAMADOL HCL 50 MG TAB PO PRN (18:50)
[2016-09-29 20:08] VITALS: BP 137/84; PULSE 91
[2016-09-29] MEDS: CLONIDINE HCL 0.1 MG TAB PO SCH (21:11)
[2016-09-29] MEDS: CLONAZEPAM 0.5 MG TAB PO PRN (21:11)
[2016-09-29] MEDS ORDERED: MONTELUKAST SOD 10 MG TAB PO SCH (22:00)
[2016-09-30 00:01] VITALS: BP 114/65; PULSE 77; TEMP 36.3; O2SAT 95
[2016-09-30 07:19] LABS: HEMATOCRIT 30.3 % (37-47); MEAN CELL VOLUME 86.8 fL (80-100); MEAN CORPUSCULAR HEMOGLOBIN 30.1 pg (25-34); MEAN CORPUSCULAR HGB CONC 34.7 g/dl (32-36); MEAN PLATELET VOLUME 8.2 fL (7.4-10.4); PLATELET COUNT 336 K/uL (130-400); RED BLOOD COUNT 3.49 M/uL (4.2-5.4); WHITE BLOOD COUNT 10.83 K/uL (4.8-10.8)
[2016-09-30 07:23] VITALS: BP 108/73; PULSE 60; TEMP 36.3; O2SAT 95
[2016-09-30 07:59] LABS: BUN/CREATININE RATIO 22.9 (10-20); CALCIUM 7.8 mg/dl (8.5-10.1); CREATININE 0.89 mg/dl (0.60-1.20); POTASSIUM 4.3 mmol/L (3.5-5.1)
[2016-09-30] MEDS: METOPROLOL TARTRATE 50 MG TAB PO SCH (08:02)
[2016-09-30] MEDS: METHYLPREDNISOLONE 4 MG TAB PO SCH ×2 (08:02→13:14)
[2016-09-30] MEDS: CLONAZEPAM 0.5 MG TAB PO PRN (08:02)
[2016-09-30] MEDS: PANTOprazole SOD 40 MG TAB PO SCH (08:03)
[2016-09-30] MEDS: CALCIUM 600MG + VIT D 400 IU TAB PO SCH (08:03)
[2016-09-30] MEDS: ATORVASTATIN 20 MG TAB PO SCH (08:03)
[2016-09-30] MEDS: METOCLOPRAMIDE HCL 5 MG TAB PO SCH (08:03)
[2016-09-30] MEDS: COLCHICINE 0.6 MG TAB PO SCH (08:03)
[2016-09-30] MEDS: NEPHROCAPS PO SCH (08:03)
[2016-09-30] MEDS: ASPIRIN 81 MG ECTAB PO SCH (08:03)
[2016-09-30] MEDS: DULOXETINE HCL 60 MG CAP PO SCH (08:03)
[2016-09-30] MEDS: TIOTROPIUM BROMIDE 5 PUFF/90 MCG INH INH SCH (08:04)
[2016-09-30 13:58] VITALS: BP 108/73; PULSE 60; TEMP 36.3; O2SAT 95
--- NOTE | 2016-09-30 14:08 | Progress Note ---
Subjective Date of Service: Sep 30, 2016. Subjective Pt evaluation today including: conversation w/ patient, physical exam, lab review, review of studies, review of inpatient medication list Saw/examined the patient in room 461 patient is feeling well, no problems/issues Problem List Medical Problems: (1) Pneumonia Status: Acute (2) Rash Status: Acute Review of Systems Constitutional: No fever, No chills Respiratory: No cough, No sputum, No shortness of breath Cardiac: No chest pain Abdomen: No pain, No nausea, No vomiting, No diarrhea Heme: No abnormal bleeding/bruising Skin: + rash (improving) Medications Current Inpatient Medications Medications (Trade) Dose Ordered Sig/Rebecca Route Start Time Stop Time Status Last Admin Dose Admin Acetaminophen (Tylenol Tab) 650 mg Q4H PRN PO 09/28/16 18:15 10/28/16 18:14 09/28/16 20:18 650 MG Ondansetron HCl (Zofran Inj) 4 mg Q6H PRN IV 09/28/16 18:15 10/28/16 18:14 Levofloxacin 750 mg/Prmx 150 ml @ 100 mls/hr Q24H IV 09/29/16 17:00 10/05/16 16:59 09/29/16 17:02 100 MLS/HR Albuterol/ Ipratropium (Duoneb) 3 ml Q4R PRN INH 09/28/16 18:15 10/28/16 18:14 Albuterol (Ventolin Hfa Inhaler) 2 puffs Q4 PRN INH 09/28/16 18:30 10/28/16 18:29 Aspirin (Ecotrin Tab) 81 mg DAILY PO 09/29/16 08:00 10/29/16 08:59 09/30/16 08:03 81 MG Atorvastatin Calcium (Lipitor Tab) 40 mg DAILY PO 09/29/16 08:00 10/29/16 08:59 09/30/16 08:03 40 MG Calcium/Vitamin D (Caltrate Plus Tab) 2 tab DAILY PO 09/29/16 08:00 10/29/16 08:59 09/30/16 08:03 2 TAB Clonidine HCl (Catapres Tab) 0.1 mg HS PO 09/28/16 21:00 10/28/16 20:59 09/29/16 21:11 0.1 MG Colchicine (Colchicine Tab) 0.6 mg BID PO 09/28/16 20:00 10/28/16 20:59 09/30/16 08:03 0.6 MG Duloxetine HCl (Cymbalta Cap) 60 mg DAILY PO 09/29/16 08:00 10/29/16 08:59 09/30/16 08:03 60 MG Metoclopramide HCl (Reglan Tab) 5 mg DAILY PO 09/29/16 08:00 10/29/16 08:59 09/30/16 08:03 5 MG Metoprolol Tartrate (Lopressor Tab) 50 mg BID PO 09/28/16 20:00 10/28/16 20:59 09/30/16 08:02 50 MG Montelukast Sodium (Singulair Tab) 10 mg HS PO 09/29/16 22:00 10/29/16 21:59 09/29/16 21:11 10 MG Nitroglycerin (Nitrostat Tab) 0.4 mg UD PRN SL 09/28/16 18:30 10/28/16 18:29 Tiotropium [place] (Spiriva Handihaler Inhaler) 30 puff DAILY INH 09/29/16 08:00 10/29/16 08:59 09/30/16 08:04 2 PUFF Tramadol HCl (Ultram Tab) 50 mg Q6 PRN PO 09/28/16 18:30 10/28/16 18:29 09/29/16 18:50 50 MG Vitamin B Complex/ Vit C/Folic Acid (Nephrocaps) 1 cap DAILY PO 09/29/16 08:00 10/29/16 08:59 09/30/16 08:03 1 CAP Warfarin Sodium (Coumadin Tab) 4 mg SuMoTuWeFrSa@1600 PO 09/28/16 20:00 10/28/16 19:59 09/29/16 15:32 4 MG Warfarin Sodium (Coumadin Tab) 6 mg Q7D@1600 PO 09/30/16 16:00 10/30/16 15:59 Miscellaneous Information (Order Awaiting Action) 1 ea QS N/A 09/29/16 00:00 10/29/16 00:00 Pantoprazole Sodium (Protonix Tab) 40 mg QAM PO 09/29/16 08:00 10/29/16 07:59 09/30/16 08:03 40 MG Methylprednisolone (Medrol Tab) 4 mg 07,13,18 PO 09/30/16 07:00 09/30/16 18:01 09/30/16 13:14 4 MG Methylprednisolone (Medrol Tab) 8 mg HS PO 09/30/16 22:00 09/30/16 22:01 Methylprednisolone (Medrol Tab) 4 mg 07,13,18,21 PO 10/01/16 07:00 10/01/16 21:01 Methylprednisolone (Medrol Tab) 4 mg 07,13,21 PO 10/02/16 07:00 10/02/16 21:01 Methylprednisolone (Medrol Tab) 4 mg 07,21 PO 10/03/16 07:00 10/03/16 21:01 Methylprednisolone (Medrol Tab) 4 mg 07 PO 10/04/16 07:00 10/04/16 07:01 Ketorolac Tromethamine (Toradol Inj) 15 mg Q6H PRN IV. 09/28/16 21:45 10/03/16 21:44 09/29/16 20:10 15 MG Clonazepam (Klonopin Tab) 0.5 mg TID PRN PO 09/29/16 20:00 10/29/16 19:59 09/30/16 08:02 0.5 MG Objective Vital Signs Date Time Temp Pulse Resp B/P (MAP) Pulse Ox O2 Delivery O2 Flow Rate FiO2 09/30/16 08:00 Room Air 09/30/16 07:23 36.3 60 20 108/73 (85) 95 Room Air 09/30/16 00:01 36.3 77 20 114/65 (81) 95 Room Air 09/30/16 00:00 Room Air 09/29/16 20:08 91 137/84 (101) 09/29/16 16:36 75 117/71 (86) 80 115/75 (88) 72 114/74 (87) 09/29/16 16:00 Room Air 09/29/16 15:53 36.7 72 18 109/70 (83) 94 Room Air Physical Exam General Appearance: no apparent distress Respiratory/Chest: chest non-tender, lungs clear, normal breath sounds, no respiratory distress, no accessory muscle use Cardiovascular: regular rate, rhythm, no edema, no gallop, no JVD, no murmur Abdomen: normal bowel sounds, non tender, soft Extremities: normal inspection, no pedal edema Neurologic/Psychiatric: alert Skin: + rash (improving, fading lacy rash, now darker in color) Laboratory Results Last 24 Hours Test 09/30/16 06:58 White Blood Count 10.83 K/uL Red Blood Count 3.49 M/uL Hemoglobin 10.5 g/dL Hematocrit 30.3 % Mean Corpuscular Volume 86.8 fL Mean Corpuscular Hemoglobin 30.1 pg Mean Corpuscular Hemoglobin Concent 34.7 g/dl RDW Standard Deviation 43.9 fL RDW Coefficient of Variation 13.7 % Platelet Count 336 K/uL Mean Platelet Volume 8.2 fL Sodium Level 133 mmol/L Potassium Level 4.3 mmol/L Chloride Level 101 mmol/L Carbon Dioxide Level 27 mmol/L Anion Gap 5.0 mmol/L Blood Urea Nitrogen 20 mg/dl Creatinine 0.89 mg/dl Est Creatinine Clear Calc Drug Dose 47.7 ml/min Estimated GFR () 80.5 Estimated GFR (Non- 69.5 BUN/Creatinine Ratio 22.9 Random Glucose 132 mg/dl Calcium Level 7.8 mg/dl Assessment and Plan This is a 61 year old female with a PMH of CAD, mild cardiomyopathy, mixed diastolic-systolic CHF, COPD, depression/anxiety, HTN, HLD, hx. of V-fib, hx. of aortic valve replacement presents with a lacy, petechial rash throughout the body Drug Rash 09/30 will finish off the medrol dosepak 09/29 as per patient, she was started on Z-mary alice recently possibly related to Z-mary alice use? medrol dosepak started yesterday rash is resolving Community Acquired Pneumonia CXR IMPRESSION: 1. Small right pleural effusion with similar appearance of the right basilar consolidation suggesting atelectasis or pneumonia. started on Levaquin yesterday will continue for another day switch to oral meds in AM and discharge for a total of five days Hx. of Aortic Valve Replacement on Coumadin continue and INR is therapeutic Mixed Systolic-Diastolic CHF no diuretics as outpatient EF is around 45% monitor for fluid overload while inpatient can f/u with outpatient cardiology CAD continue aspirin, statin, b-raphael COPD no exacerbation no wheezing continue home inhalers Levaquin x5 days total Depression/Anxiety continue home medications DVT ppx Coumadin FULL CODE
[2016-09-30] MEDS ORDERED: LEVO-459 PO (14:10)
[2016-09-30] MEDS ORDERED: METH4PAK PO (14:10)
--- NOTE | 2016-09-30 14:12 | Discharge Instructions ---
Discharge Instructions Date of Service Sep 30, 2016. Admission Reason for Admission: Pna (Pneumonia) Rash Of Entire Body Discharge Discharge Diagnosis / Problem: Drug Rash; CAP Discharge Goals Goal(s): Decrease discomfort, Improve function, Diagnostic testing, Therapeutic intervention Activity Recommendations Activity Limitations: resume your previous activity . Instructions / Follow-Up Instructions / Follow-Up Please follow-up with Dr. Rodriguez on October 05 at 12:45PM * You will be given a script for Levaquin - take this once a day for the next 3 days * You will be given a script for Medrol-dose mary alice - you will receive an entire pack - SKIP day #1, and day #2 - start on day #3 of the pack * see the Coumadin clinic on October 04 Current Hospital Diet Patient's current hospital diet: AHA Diet (Heart Healthy) Discharge Diet Recommended Diet: AHA Diet (Heart Healthy) Pending Studies Studies pending at discharge: no Medical Emergencies . Who to Call and When: Medical Emergencies: If at any time you feel your situation is an emergency, please call 911 immediately. . Non-Emergent Contact Non-Emergency issues call your: Primary Care Provider . . "Provider Documentation" section prepared by Mary Turner. . VTE Core Measure Inpt VTE Proph given/why not?: Warfarin (Coumadin)
--- NOTE | 2016-09-30 14:20 | Discharge Summary ---
Discharge Summary Date of Service Sep 30, 2016. Discharge Summary Admission Date: Sep 28, 2016 at 18:13 Discharge Date: Sep 30, 2016 Discharge Disposition: Home Principal Diagnosis: Drug Rash CAP Medication Reconciliation New Medications: Levofloxacin (Levaquin) 500 Mg Tab 500 MG PO DAILY for 3 Days, #3 TABS Methylprednisolone (Medrol Dosepak) 4 Mg Gaurav 1 PKT PO DAILY, #1 PKT Continued Medications: Albuterol Hfa (Ventolin Hfa) 200 Puffs/94221 Mcg Aers 2 PUFF INH Q4 PRN for Wheezing, #18 Aspirin (Aspirin) 81 Mg Tab 1 TAB PO DAILY for 90 Days, #90 TAB 3 Refills Atorvastatin (Lipitor) 40 Mg Tab 40 MG PO DAILY, TAB Calcium/Vitamin D (Os-David 500 Plus D) Tab 2 TAB PO DAILY, 0 Refills Clonidine Hcl (Catapres) 0.1 Mg Tab 0.1 MG PO HS, #30 Colchicine (Colchicine) 0.6 Mg Tab 1 TAB PO BID, #60 Diclofenac Sodium (Topical) (Diclofenac Sodium) 1 % Gel 2 GM TOP BID, #100 Duloxetine HCl (Duloxetine HCl) 60 Mg Cap 60 MG PO DAILY, #30 Fish Oil ([place]-3) 1 Ea Cap 1 CAP PO BID, 0 Refills Fluticasone Furoate-Vilanterol (Breo Ellipta) 1 Inh Inh 1 PUFF INH DAILY, #60 Iron Combinations (Iron Complex) 1 Cap Cap 1 CAP PO DAILY Lansoprazole (Prevacid) 30 Mg Cap 30 MG PO DAILY, #30 Magnesium (Magnesium 250 mg) 1 Tab Tab 500 MG PO DAILY Metoclopramide HCl (Metoclopramide HCl) 5 Mg Tab 5 MG PO DAILY, #30 Metoprolol Tartrate (Metoprolol Tartrate) 50 Mg Tab 50 MG PO BID, #60 Montelukast Sod (Montelukast Sodium) 10 Mg Tab 10 MG PO DAILY, #30 Multivitamins/Minerals (Mvi With Minerals) Tab 1 TAB PO DAILY, TAB Nitroglycerin (Nitrostat) 0.4 Mg/1 Tab Subl 0.4 MG SL UD PRN for Chest Pain, #25 1 Refill Polyethylene (Polyethylene Glycol 3350) 527 Gm Soln 17 GM PO TID PRN for Constipation, #765 Ranitidine HCl (Ranitidine 75) 75 Mg Tab 75 MG PO DAILY, #30 Tiotropium [place] (Spiriva Handihaler) 30 Puff/540 Mcg Aerp 1 CAP INH DAILY, #30 Tramadol (Ultram) 50 Mg Tab 50 MG PO Q6 PRN for Pain, TAB Vitamin B Cmplx/Vitc/Folic Ac (Nephrocaps) Cap 1 CAP PO DAILY for 90 Days, #90 CAP 3 Refills Warfarin Sodium (Warfarin Sodium) 2 Mg Tab 4 MG PO 6XWK, #50 take every day but thur Warfarin Sodium (Coumadin) 2 Mg Tab 6 MG PO THURS, TAB Admission Information HPI (per Admitting provider): This is a 61yo F with a PMH of CAD s/p STEMI with balloon angioplasty in 2013, cardiomyopathy, h/o multiple valvular disease with aortic valve replacement (on coumadin), h/o Vfib, COPD (mild), HLD and JC who presents to the ED with a sore throat, generalized weakness and a rash over entire body. Patient started to experience sore throat, cough and weakness a week ago that has since worsened. Went to see [facility] a few days ago and was started on a Z-Pack and Steroids. Yesterday, patient started to develop a rash on arms and legs that has continued to spread to trunk and face. Patient also started to experience chills, swelling in hands and feet, a decrease in appetite, diarrhea (3x/day) and some MSK pain in shoulders and back. Returned to PCP today for the worsening rash and was directed to the ED for further evaluation. Denies a history of similar rashes and states that it neither is painful or itchy. Denies any headaches, visual disturbances, difficulty swallowing, rhinorrhea, chest pain, dyspnea, SOB, wheezing, abdominal pain, n/v, difficulty ambulating or myalgias. Physical Exam (per Admitting): General Appearance: WD/WN, no apparent distress Head: normocephalic, atraumatic Eyes: normal inspection ENT: normal ENT inspection, hearing grossly normal, pharynx normal, + nasal congestion Neck: supple, no adenopathy Respiratory/Chest: chest non-tender, lungs clear, normal breath sounds, no respiratory distress Cardiovascular: regular rate, rhythm, + systolic murmur Abdomen/GI: normal bowel sounds, non tender, soft Back: normal inspection Extremities/Musculoskelatal: normal inspection, + pedal edema (trace), + pertinent finding (Trace swelling noted on bilateral hands. AROM and AHSAN fully intact. ) Neurologic/Psych: no motor/sensory deficits, alert, normal mood/affect, normal reflexes, oriented x 3 Skin: + rash (Non-blanching petechial rash noted bilaterally on LE below knees. Reddish pink, papular rash with some areas of red patching noted on face , UE, trunk, groin and LE. Larger, reddish-pink patches were observed on extensor surfaces of hands with associated warmth.) Lymphatic: no adenopathy Hospital Course This is a 61 year old female with a PMH of CAD, mild cardiomyopathy, mixed diastolic-systolic CHF, COPD, depression/anxiety, HTN, HLD, hx. of V-fib, hx. of aortic valve replacement presents with a lacy, petechial rash throughout the body Drug Rash 09/30 will finish off the medrol dosepak 09/29 as per patient, she was started on Z-gaurav recently possibly related to Z-gaurav use? medrol dosepak started yesterday rash is resolving Community Acquired Pneumonia CXR IMPRESSION: 1. Small right pleural effusion with similar appearance of the right basilar consolidation suggesting atelectasis or pneumonia. started on Levaquin yesterday will continue for another day switch to oral meds in AM and discharge for a total of five days Hx. of Aortic Valve Replacement on Coumadin continue and INR is therapeutic Mixed Systolic-Diastolic CHF no diuretics as outpatient EF is around 45% monitor for fluid overload while inpatient can f/u with outpatient cardiology CAD continue aspirin, statin, b-raphael COPD no exacerbation no wheezing continue home inhalers Levaquin x5 days total Depression/Anxiety continue home medications DVT ppx Coumadin FULL CODE Total time spent on discharge = 35 minutes This includes examination of the patient, discharge planning, medication reconciliation, and communication with other providers. Discharge Instructions Please follow-up with Dr. Rodriguez on October 05 at 12:45PM * You will be given a script for Levaquin - take this once a day for the next 3 days * You will be given a script for Medrol-dose gaurav - you will receive an entire pack - SKIP day #1, and day #2 - start on day #3 of the pack * see the Coumadin clinic on October 04
[2016-09-30] MEDS ORDERED: WARFARIN SOD 6 MG TAB PO SCH (16:00)
[2016-09-30] MEDS ORDERED: METHYLPREDNISOLONE 4 MG TAB PO SCH (22:00)
[2016-10-01] MEDS ORDERED: METHYLPREDNISOLONE 4 MG TAB PO SCH (07:00)
[2016-10-02] MEDS ORDERED: METHYLPREDNISOLONE 4 MG TAB PO SCH (07:00)
[2016-10-03] MEDS ORDERED: METHYLPREDNISOLONE 4 MG TAB PO SCH (07:00)
[2016-10-04] MEDS ORDERED: METHYLPREDNISOLONE 4 MG TAB PO SCH (07:00)
== END 2016-09-30 15:05 | disposition home or self-care (01) | DRG 917 ==
LOC: C.EDB 14:54 → C.MS4W 18:13 → ENRESERV 18:30
PROVIDERS: ADMIT Internal Medicine; ATTEND Family Medicine
DX: T36.95XA Adverse effect of unspecified systemic antibiotic, initial encounter (principal); J18.9 Pneumonia, unspecified organism; J44.0 Chronic obstructive pulmonary disease with (acute) lower respiratory infection; I42.9 Cardiomyopathy, unspecified; I50.42 Chronic combined systolic (congestive) and diastolic (congestive) heart failure; L27.0 Generalized skin eruption due to drugs and medicaments taken internally; J44.9 Chronic obstructive pulmonary disease, unspecified; F41.1 Generalized anxiety disorder; I25.10 Atherosclerotic heart disease of native coronary artery without angina pectoris; I25.2 Old myocardial infarction; E78.5 Hyperlipidemia, unspecified; K21.9 Gastro-esophageal reflux disease without esophagitis; I11.0 Hypertensive heart disease with heart failure; M19.90 Unspecified osteoarthritis, unspecified site; Z95.2 Presence of prosthetic heart valve; Z79.82 Long term (current) use of aspirin; Z79.899 Other long term (current) drug therapy; Z79.01 Long term (current) use of anticoagulants; Z84.1 Family history of disorders of kidney and ureter; Z87.891 Personal history of nicotine dependence; Z88.8 Allergy status to other drugs, medicaments and biological substances; Z98.61 Coronary angioplasty status

== ENCOUNTER 2020-12-10 11:30 | Inpatient (IN) ==
--- NOTE | 2020-12-10 12:18 | Emergency Department Note ---
Impression & Plan Acute upper GI bleed, Anemia, Elevated INR, Frequent falls, Contusion of face, Hyponatremia ED Provider Note NAME: ELDON UGARTE AGE: 65 SEX: F : 1955 ARRIVES VIA: Ambulance INFORMANT: Patient, EMS ED PROVIDER(S): Carmine Alamo DO CHIEF COMPLAINT: Low blood pressure HPI: The patient is a 65-year-old female who presented to the emergency department by ambulance for an evaluation of low blood pressure. The patient has a history of anticoagulation because of valve replacement surgery. She states that over the course the last few weeks she is becoming more and more weak. She was noted to have low blood pressure today so she presented to the emergency department. She states that she has been weak and fell a few times. She has obvious trauma to her face. She denies having any headache at this time. She denies having any chest pain. She denies having any neck pain. She denies having any abdominal pain or difficulty breathing. She denies having any lower extremity pain. She states that she has been compliant with all of her outpatient medicines. She is not had any fever or cough. ROS: See above HPI for pertinent positives & negatives. A total of 10 systems reviewed and were otherwise negative. PAST MEDICAL HISTORY: See Below PAST SURGICAL HISTORY: See Below FAMILY HISTORY: See Below SOCIAL HISTORY: See Below HOME MEDICATIONS: See Below ALLERGIES: See Below VITALS: See Below PHYSICAL EXAMINATION: GENERAL: The patient is awake and answers questions. She appears somewhat listless and slow to answer questions at times. EYES: The conjunctivae are clear. The pupils are round and reactive. EARS, NOSE, MOUTH AND THROAT: The nose is without any evidence of any deformity. Mucous membranes are moist. Right-sided periorbital ecchymosis was noted. NECK: The neck is nontender and supple. RESPIRATORY: Diminished breath sounds are noted throughout. There is no tachypnea or conversational dyspnea. CARDIOVASCULAR: Regular rate and rhythm noted there no murmurs rubs or gallops normal S1 normal S2. GASTROINTESTINAL: The abdomen is soft. Abdomen is nontender. MUSCULOSKELETAL/EXTREMITIES: There is no evidence of gross deformity full range of motion is noted in the hips and shoulders. SKIN: Skin is warm and dry. Pedal edema was noted bilaterally. NEUROLOGIC: Patient is awake and oriented to person place and situation. Strength was diminished but symmetric MEDICAL DECISION MAKING: The patient is a 65-year-old female who presented to the emergency department for an evaluation after falling. The patient has had generalized weakness. She is also had frequent falls. The patient does have a history of anticoagulation use. I discussed her blaze and radiographic studies with her. She did have signs of trauma on her face. CT of the head facial bones and neck did not show any acute traumatic injury. She was found to have black stool which was heme positive. The patient appears to have an upper GI bleed. I discussed the patient's laboratory and radiographic studies with her. [facility] have agreed to evaluate the patient for further management and disposition. The patient did have a low heme when compared to baseline but does not require transfusion at this time. Triage Nursing notes reviewed. Prior medical records reviewed Vital Signs: reviewed and remarkable for no significant abnormalities Differential diagnosis: Infection, dehydration, metabolic abnormality, hypo/hyperglycemia, electrolyte disturbance, anemia, hypoxia, cardiac sources, intracerebral event, toxicologic, neurologic, as well as other pathologies. ER treatment provided: See below Diagnostics interpreted by me: ECG: EKG was obtained in the emergency department. My interpretation is junctional rhythm at 60 bpm. LVH was noted by voltage criteria. Incomplete right bundle branch block pattern was noted. This was compared to a tracing from September [id number]. The changes are new compared to the earlier tracing. Cardiac Monitoring: An order was placed for continuous cardiac monitoring. The monitor shows a rate of 68 bpm with sinus rhythm. Laboratory studies: As stated above and show below. Imaging studies: See below Consultation(s): I discussed this case with Elza who [facility] They will evaluate the patient in the emergency department. Past Med/Surg History Medical History Acquired tricuspid valve insufficiency Anxiety Arteriosclerotic coronary artery disease CKD (chronic kidney disease) stage 3, GFR 30-59 ml/min COPD, mild Dyslipidemia Esophageal reflux Gastroparesis History of ST elevation myocardial infarction (STEMI) History of ventricular fibrillation Isolated premature ventricular contractions prison (current) use of anticoagulants Mitral stenosis Mitral valve insufficiency Osteoarthrosis Peripheral edema Reactive airway disease Surgical History H/O aortic root repair H/O aortic valve replacement H/O mitral valve repair H/O myomectomy History of aortic valve replacement with bioprosthetic valve History of bowel resection S/P VSD closure Family History Other Heart disease Social History Smoking Status: Former smoker Hx Alcohol Use: No Hx Substance Use: No Preferred Language: Sami Communication Ability: Effective Beliefs That Will Affect Care: None marital status: Current Living Situation: Spouse current occupational status: disabled Feels Safe at Home: No Safety Concerns: Feels Safe At This Time Assistive Devices: Cane Allergies Allergies Allergy/AdvReac Type Severity Reaction Status Date / Time paroxetine Allergy Unknown UNKNOWN Verified 04/03/20 14:58 sumatriptan Allergy Unknown UNKNOWN Verified 04/03/20 14:58 citalopram AdvReac Intermediate AGITATION, Verified 04/03/20 14:58 BURNING SENSATION dicyclomine AdvReac Intermediate HEADACHE Verified 04/03/20 14:58 Home Meds Home Medications Medication Instructions Recorded Confirmed acetaminophen 500 mg tablet 500 mg PO HS PRN tab 12/29/18 12/10/20 calcium carbonate 500 mg (1,250 2 tab PO DAILY tab 12/29/18 12/10/20 mg)-vitamin D3 200 unit tablet clonazepam 0.5 mg tablet 0.5 mg PO TID PRN tab 12/29/18 12/10/20 metoclopramide HCl 5 mg tablet 5 mg PO BID tab 12/29/18 12/10/20 montelukast 10 mg tablet 10 mg PO HS tab 12/29/18 12/10/20 multivitamin (Multiple Vitamins) 1 tab PO DAILY 12/29/18 12/10/20 ondansetron HCl 4 mg tablet 4 mg PO Q8H PRN tab 12/29/18 12/10/20 vitamin B complex 1 tab PO DAILY 12/29/18 12/10/20 gabapentin 300 mg capsule 300 mg PO TID 08/27/19 12/10/20 atorvastatin 40 mg tablet 40 mg PO HS 12/10/20 12/10/20 denosumab 60 mg/mL subcutaneous 60 mg SUBCUT DIRECTED 12/10/20 12/10/20 syringe (Prolia) duloxetine 60 mg capsule,delayed 90 mg PO DAILY 12/10/20 12/10/20 release loratadine 10 mg tablet 10 mg PO DAILY PRN 12/10/20 12/10/20 topiramate 25 mg tablet 25 mg PO BID 12/10/20 12/10/20 warfarin 2 mg tablet See Rx Instructions .ROUTE .COMPLEX 12/10/20 12/10/20 Previous Rx's Medication Instructions Recorded albuterol sulfate 90 mcg/actuation 2 puffs INH QID PRN #8 gm 10/31/18 aerosol inhaler (Proventil HFA) colchicine 0.6 mg tablet 0.6 mg PO BID #60 tab 10/31/18 fluticasone furoate 100 1 puffs INH DAILY #60 ea 10/31/18 mcg-vilanterol 25 mcg/dose inhalation powder (Breo Ellipta) lansoprazole 30 mg capsule,delayed 30 mg PO DAILY #30 cap 10/31/18 release magnesium oxide 400 mg PO DAILY #30 tab 10/31/18 tiotropium bromide 18 mcg capsule 1 cap INH DAILY #90 puffs 10/31/18 with inhalation device (Spiriva with HandiHaler) lisinopril 20 mg tablet 20 mg PO DAILY #90 tab 10/01/19 nitroglycerin 0.4 mg sublingual 0.4 mg SL Q5M PRN #20 tab 12/18/19 tablet metoprolol tartrate 50 mg tablet 50 mg PO BID #180 tab 12/31/19 aspirin 81 mg tablet,delayed 81 mg PO .COMPLEX #30 tab 01/15/20 release hydrochlorothiazide 12.5 mg tablet 12.5 mg PO DAILY #30 tab 03/12/20 spironolactone 25 mg tablet 25 mg PO DAILY #30 tab 03/12/20 Results & Data (ED) Vital Signs Vital Signs - 24 hr 12/10/20 11:27 12/10/20 11:45 12/10/20 11:54 Temperature 37.2 C Temperature Source Oral Pulse Rate 62 Pulse Rate [Apical] Pulse Rate from SpO2 Sensor Pulse Rhythm [Apical] Respiratory Rate 16 Respiratory Depth Respiratory Pattern Blood Pressure 98/56 L Blood Pressure [Right Arm] Blood Pressure Mean 70 Blood Pressure Mean [Right Arm] Pulse Oximetry 95 95 Oxygen Delivery Method Room Air Room Air Room Air Sepsis New/Unexplained Change in Mental Status N/A Sepsis Action Taken by Nursing No Action Required 12/10/20 11:55 12/10/20 12:00 12/10/20 12:30 Temperature Temperature Source Pulse Rate 62 59 L Pulse Rate [Apical] Pulse Rate from SpO2 Sensor 61 59 L Pulse Rhythm [Apical] Respiratory Rate 18 17 Respiratory Depth Respiratory Pattern Blood Pressure 96/57 L 114/54 L Blood Pressure [Right Arm] Blood Pressure Mean 70 74 Blood Pressure Mean [Right Arm] Pulse Oximetry 96 Oxygen Delivery Method Room Air Room Air Sepsis New/Unexplained Change in Mental Status Sepsis Action Taken by Nursing 12/10/20 13:41 12/10/20 14:46 Temperature 37 C Temperature Source Oral Pulse Rate 64 Pulse Rate [Apical] 60 Pulse Rate from SpO2 Sensor Pulse Rhythm [Apical] Regular Respiratory Rate 16 18 Respiratory Depth Normal Respiratory Pattern Regular Blood Pressure 115/64 Blood Pressure [Right Arm] 91/59 L Blood Pressure Mean 81 Blood Pressure Mean [Right Arm] 69 Pulse Oximetry 94 Oxygen Delivery Method Room Air Sepsis New/Unexplained Change in Mental Status Sepsis Action Taken by [facility] Medications Current Medication List: was personally reviewed by me Laboratory Data Attestation: I reviewed the patient's lab results. Result diagrams: 12/10/20 12:03 12/10/20 12:03 Lab Results 12/10/20 12/10/20 12/10/20 Range/Units 12:03 12:03 12:03 WBC 2.54 L (4.8-10.8) K/uL RBC 3.04 L (4.2-5.4) M/uL Hgb 9.4 L (12.0-16.0) g/dL Hct 27.2 L (37-47) % MCV 89.5 (80-100) fL MCH 30.9 (25-34) pg MCHC 34.6 (32-36) g/dL RDW Std Deviation 45.0 (36.4-46.3) fL RDW Coeff of Emily 13.6 (11.5-14.5) % Plt Count 141 (130-400) K/uL MPV 8.6 (7.4-10.4) fL Immature Gran % (Auto) 0.8 % Neut % (Auto) 72.4 % Lymph % (Auto) 15.4 % Aiken % (Auto) 10.2 % Eos % (Auto) 1.2 % Baso % (Auto) 0.0 % Neut # (Auto) 1.84 (1.4-6.5) K/uL Lymph # (Auto) 0.39 L (1.2-3.4) K/uL Aiken # (Auto) 0.26 (0.11-0.59) K/uL Eos # (Auto) 0.03 (0-0.5) K/uL Baso # (Auto) 0.00 (0-0.2) K/uL Immature Gran # (Auto) 0.02 (0.00-0.02) K/uL PT 33.8 H (9.0-12.0) Seconds INR 3.7 H (0.9-1.1) APTT 68.0 H* (21.0-31.0) Seconds PTT Ratio 2.6 Sodium (136-145) mmol/L Potassium (3.5-5.1) mmol/L Chloride (98-107) mmol/L Carbon Dioxide (21-32) mmol/L Anion Gap (3-11) BUN (7-18) mg/dl Creatinine (0.6-1.2) mg/dl Est Cr Clr Drug Dosing ml/min Est GFR ( Amer) ml/min Est GFR (Non-Af Amer) ml/min BUN/Creatinine Ratio (10-20) Glucose (70-99) mg/dl Calcium (8.5-10.1) mg/dl Magnesium (1.8-2.4) mg/dl Total Bilirubin (0.2-1) mg/dl AST (15-37) U/L ALT (12-78) U/L Alkaline Phosphatase (45-117) U/L Total Creatine Kinase (26-192) U/L Troponin I (0-0.045) ng/ml NT-Pro-B Natriuret Pep (0-900) pg/ml Total Protein (6.4-8.2) gm/dl Albumin (3.4-5.0) gm/dl Globulin (2.5-4.0) gm/dl Albumin/Globulin Ratio (0.9-2) TSH (0.300-4.500) uIu/ml Free T4 (0.8-1.6) ng/dl COVID-19 Eval Order SARS-CoV-2 (PCR) (Negative) Blood Type A Negative Antibody Screen NEGATIVE 12/10/20 12/10/20 12/10/20 Range/Units 12:03 14:15 14:15 WBC (4.8-10.8) K/uL RBC (4.2-5.4) M/uL Hgb (12.0-16.0) g/dL Hct (37-47) % MCV (80-100) fL MCH (25-34) pg MCHC (32-36) g/dL RDW Std Deviation (36.4-46.3) fL RDW Coeff of Emily (11.5-14.5) % Plt Count (130-400) K/uL MPV (7.4-10.4) fL Immature Gran % (Auto) % Neut % (Auto) % Lymph % (Auto) % Aiken % (Auto) % Eos % (Auto) % Baso % (Auto) % Neut # (Auto) (1.4-6.5) K/uL Lymph # (Auto) (1.2-3.4) K/uL Aiken # (Auto) (0.11-0.59) K/uL Eos # (Auto) (0-0.5) K/uL Baso # (Auto) (0-0.2) K/uL Immature Gran # (Auto) (0.00-0.02) K/uL PT (9.0-12.0) Seconds INR (0.9-1.1) APTT (21.0-31.0) Seconds PTT Ratio Sodium 129 L (136-145) mmol/L Potassium 3.4 L (3.5-5.1) mmol/L Chloride 95 L (98-107) mmol/L Carbon Dioxide 26 (21-32) mmol/L Anion Gap 9.0 (3-11) BUN 23 H (7-18) mg/dl Creatinine 1.98 H (0.6-1.2) mg/dl Est Cr Clr Drug Dosing 21.4 ml/min Est GFR ( Amer) 29.8 ml/min Est GFR (Non-Af Amer) 25.7 ml/min BUN/Creatinine Ratio 11.5 (10-20) Glucose 113 H (70-99) mg/dl Calcium 8.0 L (8.5-10.1) mg/dl Magnesium 2.2 (1.8-2.4) mg/dl Total Bilirubin 0.4 (0.2-1) mg/dl AST 41 H (15-37) U/L ALT 41 (12-78) U/L Alkaline Phosphatase 45 (45-117) U/L Total Creatine Kinase 383 H (26-192) U/L Troponin I 0.034 (0-0.045) ng/ml NT-Pro-B Natriuret Pep 3290 H (0-900) pg/ml Total Protein 6.4 (6.4-8.2) gm/dl Albumin 3.1 L (3.4-5.0) gm/dl Globulin 3.3 (2.5-4.0) gm/dl Albumin/Globulin Ratio 0.9 (0.9-2) TSH 0.173 L (0.300-4.500) uIu/ml Free T4 1.23 (0.8-1.6) ng/dl COVID-19 Eval Order Covid19 at [facility] SARS-CoV-2 (PCR) POSITIVE A* (Negative) Blood Type Antibody Screen Administered Medications Discontinued Medications Pantoprazole Sodium 40 mg/ (Syringe) 10 mls @ 5 mls/min IV NOW ONE Stop: 12/10/20 14:16 Last Admin: 12/10/20 15:44 Dose: 5 mls/min Documented by: [id number] Famotidine (Pepcid 20mg Iv Push) 20 mg in 5 mls @ 2.5 mls/min IV NOW STA Stop: 12/10/20 14:16 Last Admin: 12/10/20 14:29 Dose: 2.5 mls/min Documented by: [id number] Sodium Chloride (Nss 1000ml) 500 mls @ 999 mls/hr IV .Q31M ONE Stop: 12/10/20 14:45 Last Admin: 12/10/20 14:29 Dose: 999 mls/hr Documented by: [id number] Imaging Data Radiologist's Impression: Cervical Spine CT 12/10/20 11:55 CT cervical spine wo con CT DOSE: 904.67 mGy.cm CLINICAL HISTORY: 65 years-old Female with fall. Acute head and neck injury status post fall COMPARISON: CT head and maxillofacial studies of same day TECHNIQUE: Multiple axial CT images of the cervical spine were obtained without contrast. A dose lowering technique was utilized adhering to the principles of ALARA. FINDINGS: Straightening of the normal cervical lordosis. Multilevel intervertebral disc space narrowing, moderate at C5-C6 and C6 or C7. Associated uncovertebral spurring with disc osteophyte complex formations most pronounced at these levels. Mild to moderate multilevel facet arthrosis. There is severe left-sided facet arthrosis at C2-C3 and partial degenerative bony fusion. Moderate degeneration at C1-C2 with partially calcified pannus. No acute fracture or subluxation. Multilevel neural foraminal narrowing. Mastoid air cells are clear. Prior median sternotomy. Lung apices are clear without pneumothorax. No prevertebral edema. Calcified plaque of the carotid arteries. IMPRESSION: No acute cervical spine fracture or subluxation. ACT 112: Negative or not required by law. The above report was generated using voice recognition software. It may contain grammatical, syntax or spelling errors. Electronically signed by: Lazaro Myers M.D. 12/10/2020 1:06 PM Chest X-Ray 12/10/20 11:55 XR chest 1V not portable CLINICAL HISTORY: weakness COMPARISON STUDY: September 28, 2016 FINDINGS: No pneumothorax. No pleural effusion. No large infiltrates or consolidative lesions are seen. Mild reticular pr ominence of pulmonary interstitium and peribronchial cuffing are stable since prior and could represent chronic fibrotic changes. Bilateral lungs are slightly hyperinflated. Mild flattening of right and left hemidiaphragm. Cardiac silhouette remains mildly enlarged. Aorta is tortuous and calcified. No significant pulmonary vascular congestion.. Osseous structures: Mild diffuse osteopenia. Midline sternotomy wires are again seen. Evaluation is suboptimal due to overlying EKG leads. IMPRESSION: 1. No large infiltrates or consolidative lesions. 2. Stable cardiomegaly. 3. Atherosclerosis. 4. Mild hyperinflation, possible COPD pattern. ACT 112: Negative or not required by law. The above report was generated using voice recognition software. It may contain grammatical, syntax or spelling errors. Electronically signed by: Billie Ugarte DO 12/10/2020 1:[address] 12/10/20 11:55 CT SCAN OF THE FACIAL BONES WITHOUT IV CONTRAST CLINICAL HISTORY: Fall several days ago. Facial bruising. COMPARISON STUDY: CT of the brain performed concurrently on 12/10/2020. TECHNIQUE: High-resolution CT scan of the facial bones is performed. Images are reviewed in the axial, sagittal, and coronal planes. IV contrast was not administered for this examination. A dose lowering technique was utilized adhering to the principles of ALARA. FINDINGS: The skeletal structures are osteopenic. There is no evidence of facial bone fracture. The bony orbits are intact and the orbital contents are within normal limits. The zygomatic arches, nasal bones, and pterygoid plates are preserved. The maxilla and mandible are intact. Degenerative change is noted in the temporomandibular joints. There are no layering blood products within the paranasal sinuses. The sinuses and mastoids are clear. The visualized calvarium and upper cervical spine are maintained. Partially imaged brain parenchyma is within normal limits. The patient is edentulous. IMPRESSION: There is no evidence of facial bone fracture. ACT 112: Negative or not required by law. Electronically signed by: Mathew Bajwa M.D. 12/10/2020 1:[address] 12/10/20 11:[address] DOSE: HISTORY: Trauma. fall TECHNIQUE: Multiaxial CT images of the head were performed without the use of intravenous contrast. Automated exposure control was utilized for this study. A dose lowering technique was utilized adhering to the principles of ALARA. Comparison: None. Findings: The paranasal sinuses and mastoid air cells are clear. The calvarium and skull base are intact. There is no mass, hematoma, midline shift, acute infarct. White matter hypodensity is nonspecific but suggestive of microvascular ischemic change. The ventricles and sulci demonstrate mild age-related involutional changes. Mild frontal scalp swelling. Impression: No acute intracranial abnormality. ACT 112: Negative or not required by law. Electronically signed by: Joel Guardado M.D. 12/10/2020 1:08 PM Abdomen/Pelvis CT 12/10/20 12:[address] WITHOUT CONTRAST CT DOSE: 261.13 mGy.cm HISTORY: GI bleed. TECHNIQUE: Multiaxial CT images of the abdomen and pelvis were performed without contrast. A dose lowering technique was utilized adhering to the principles of ALARA. COMPARISON STUDY: None. FINDINGS: A few tree-in-bud nodular opacities within the left lower lobe. This favors a mild infectious bronchiolitis. No pneumoperitoneum. No pneumatosis. Focal sclerosis at the distal sacrum appears to represent a subacute/healing fracture. No acute fractures identified within the visualized osseous structures. Focal super endplate deformities from L3 through L5 likely represent a combination of old compression fractures and Schmorl's nodes. Poststernotomy changes are noted. The heart is mildly enlarged. There is a small hiatus hernia. The unenhanced liver, spleen, right adrenal gland, pancreas, and gallbladder are unremarkable. Calcifications within the left adrenal gland. No renal or ureteral calculi. No hydronephrosis. A few subcentimeter bilateral renal hypodense lesions. These are incompletely characterized on this noncontrast study but statistically represent cysts. Normal caliber abdominal aorta. No retroperitoneal lymphadenopathy. Mild bladder wall thickening which could be due to underdistention. The uterus and bilateral adnexa are within normal limits. There is suboptimal evaluation for bowel pathology due to the lack of intra venous and oral contrast. However, there is no definite bowel wall thickening or obstruction. A few colonic diverticula. No evidence for acute diverticulitis. Normal appendix. The majority the colon is fluid-filled. IMPRESSION: 1. The majority of the colon is fluid-filled which can be seen in the setting of a gastroenteritis/diarrheal illness. 2. No definite bowel wall thickening or obstruction. 3. Normal appendix. 4. Healing nondisplaced distal sacral fracture. 5. Mild bladder wall thickening. This is likely due to underdistention. 6. A few tree-in-bud nodular opacities within the left lower lobe. This favors a mild infectious bronchiolitis. 7. Additional findings as described above. ACT 112: Negative or not required by law. Electronically signed by: Joel Guardado M.D. 12/10/2020 2:16 PM Discharge Plan Visit Data Chief Complaint: Hypotension Stated Complaint: HYPOTENTION ED Provider: Carmine Alamo Discharge Problem: Acute upper GI bleed, Anemia, Elevated INR, Frequent falls, Contusion of face, Hyponatremia Patient Disposition: Admitted As Inpatient Discharge Instructions Interventions: ED Discharge Assessment Last Done: 12/10/20 16:19
[2020-12-10 12:33] LABS: Eosinophils # (auto) 0.03 K/uL (0-0.5); Eosinophils % (auto) 1.2 %; Hematocrit (blood only) 27.2 % (37-47); Hemoglobin 9.4 g/dL (12.0-16.0); Immature Granulocytes # (auto) 0.02 K/uL (0.00-0.02); Immature Granulocytes % (auto) 0.8 %; Lymphocytes # (auto) 0.39 K/uL (1.2-3.4); Lymphocytes % (auto) 15.4 %; Mean Corpuscular Hemoglobin 30.9 pg (25-34); Mean Corpuscular Hgb Conc 34.6 g/dL (32-36); Mean Corpuscular Volume 89.5 fL (80-100); Mean Platelet Volume 8.6 fL (7.4-10.4); Monocytes # (auto) 0.26 K/uL (0.11-0.59); Monocytes % (auto) 10.2 %; Neutrophils # (auto) 1.84 K/uL (1.4-6.5); Neutrophils % (auto) 72.4 %; Platelet Count 141 K/uL (130-400); RDW Coefficient of Variation 13.6 % (11.5-14.5); Red Blood Count 3.04 M/uL (4.2-5.4); White Blood Count 2.54 K/uL (4.8-10.8)
[2020-12-10 12:45] LABS: Albumin Level 3.1 gm/dl (3.4-5.0); BUN Creatinine Ratio 11.5 (10-20); Creatinine Clr Calc Pharmacy 21.4 ml/min; Est GFR (African American) 29.8 ml/min; Est GFR (Non-African American) 25.7 ml/min; Magnesium 2.2 mg/dl (1.8-2.4); Potassium 3.4 mmol/L (3.5-5.1)
[2020-12-10 12:53] LABS: INR 3.7 (0.9-1.1); Partial Thromboplastin Ratio 2.6; Prothrombin Time 33.8 Seconds (9.0-12.0)
[2020-12-10 12:55] LABS: Albumin Globulin Ratio 0.9 (0.9-2); Bilirubin,Total 0.4 mg/dl (0.2-1); Globulin 3.3 gm/dl (2.5-4.0); Thyroid Stimulating Hormone 0.173 uIu/ml (0.300-4.500); Total Protein 6.4 gm/dl (6.4-8.2); Troponin I 0.034 ng/ml (0-0.045)
--- NOTE | 2020-12-10 13:08 | CT Scan Report ---
CT cervical spine wo con CT DOSE: 904.67 mGy.cm CLINICAL HISTORY: 65 years-old Female with fall. Acute head and neck injury status post fall COMPARISON: CT head and maxillofacial studies of same day TECHNIQUE: Multiple axial CT images of the cervical spine were obtained without contrast. A dose low ering technique was utilized adhering to the principles of ALARA. FINDINGS: Straightening of the normal cervical lordosis. Multilevel intervertebral disc space narrowing, modera te at C5-C6 and C6 or C7. Associated uncovertebral spurring with disc osteophyte complex formations m ost pronounced at these levels. Mild to moderate multilevel facet arthrosis. There is severe left-roel ed facet arthrosis at C2-C3 and partial degenerative bony fusion. Moderate degeneration at C1-C2 with partially calcified pannus. No acute fracture or subluxation. Multilevel neural foraminal narrowing. Mastoid air cells are clear. Prior median sternotomy. Lung apices are clear without pneumothorax. No prevertebral edema. Calcified plaque of the carotid arteries. IMPRESSION: No acute cervical spine fracture or subluxation. ACT 112: Negative or not required by law. The above report was generated using voice recognition software. It may contain grammatical, syntax o r spelling errors. Electronically signed by: Lazaro Myers M.D. 12/10/2020 1:06 PM
--- NOTE | 2020-12-10 13:10 | CT Scan Report ---
HEAD CT NONCONTRAST CT DOSE: HISTORY: Trauma. fall TECHNIQUE: Multiaxial CT images of the head were performed without the use of intravenous contrast. A utomated exposure control was utilized for this study. A dose lowering technique was utilized adheri ng to the principles of ALARA. Comparison: None. Findings: The paranasal sinuses and mastoid air cells are clear. The calvarium and skull base are int act. There is no mass, hematoma, midline shift, acute infarct. White matter hypodensity is nonspecifi c but suggestive of microvascular ischemic change. The ventricles and sulci demonstrate mild age-rela bandar involutional changes. Mild frontal scalp swelling. Impression: No acute intracranial abnormality. ACT 112: Negative or not required by law. Electronically signed by: Joel Guardado M.D. 12/10/2020 1:08 PM
--- NOTE | 2020-12-10 13:10 | CT Scan Report ---
CT SCAN OF THE FACIAL BONES WITHOUT IV CONTRAST CLINICAL HISTORY: Fall several days ago. Facial bruising. COMPARISON STUDY: CT of the brain performed concurrently on 12/10/2020. TECHNIQUE: High-resolution CT scan of the facial bones is performed. Images are reviewed in the axia l, sagittal, and coronal planes. IV contrast was not administered for this examination. A dose lower ing technique was utilized adhering to the principles of ALARA. FINDINGS: The skeletal structures are osteopenic. There is no evidence of facial bone fracture. The b brian orbits are intact and the orbital contents are within normal limits. The zygomatic arches, nasal bones, and pterygoid plates are preserved. The maxilla and mandible are intact. Degenerative change i s noted in the temporomandibular joints. There are no layering blood products within the paranasal si nuses. The sinuses and mastoids are clear. The visualized calvarium and upper cervical spine are main tained. Partially imaged brain parenchyma is within normal limits. The patient is edentulous. IMPRESSION: There is no evidence of facial bone fracture. ACT 112: Negative or not required by law. Electronically signed by: Mathew Bajwa M.D. 12/10/2020 1:09 PM
[2020-12-10 13:15] LABS: T4 Free Thyroxine 1.23 ng/dl (0.8-1.6)
--- NOTE | 2020-12-10 13:50 | XRay Report ---
XR chest 1V not portable CLINICAL HISTORY: weakness COMPARISON STUDY: September 28, 2016 FINDINGS: No pneumothorax. No pleural effusion. No large infiltrates or consolidative lesions are seen. Mild reticular prominence of pulmonary inters titium and peribronchial cuffing are stable since prior and could represent chronic fibrotic changes. Bilateral lungs are slightly hyperinflated. Mild flattening of right and left hemidiaphragm. Cardiac silhouette remains mildly enlarged. Aorta is tortuous and calcified. No significant pulmonary vascular congestion.. Osseous structures: Mild diffuse osteopenia. Midline sternotomy wires are again seen. Evaluation is suboptimal due to overlying EKG leads. IMPRESSION: 1. No large infiltrates or consolidative lesions. 2. Stable cardiomegaly. 3. Atherosclerosis. 4. Mild hyperinflation, possible COPD pattern. ACT 112: Negative or not required by law. The above report was generated using voice recognition software. It may contain grammatical, syntax o r spelling errors. Electronically signed by: Billie Ugarte DO 12/10/2020 1:48 PM
[2020-12-10] MEDS ORDERED: PANTOprazole 40 MG in SYRINGE 0 ML IV ONE (14:15)
[2020-12-10] MEDS ORDERED: FAMOTIDINE 20MG IV PUSH 20 MG/5 ML SYR IV STA (14:15)
[2020-12-10] MEDS ORDERED: SODIUM CHLORIDE 0.9% 1000ML 500 ML IV ONE (14:15)
--- NOTE | 2020-12-10 14:18 | CT Scan Report ---
ABDOMEN AND PELVIS CT WITHOUT CONTRAST CT DOSE: 261.13 mGy.cm HISTORY: GI bleed. TECHNIQUE: Multiaxial CT images of the abdomen and pelvis were performed without contrast. A dose lo wering technique was utilized adhering to the principles of ALARA. COMPARISON STUDY: None. FINDINGS: A few tree-in-bud nodular opacities within the left lower lobe. This favors a mild infectio us bronchiolitis. No pneumoperitoneum. No pneumatosis. Focal sclerosis at the distal sacrum appears t o represent a subacute/healing fracture. No acute fractures identified within the visualized osseous structures. Focal super endplate deformities from L3 through L5 likely represent a combination of old compression fractures and Schmorl's nodes. Poststernotomy changes are noted. The heart is mildly enl arged. There is a small hiatus hernia. The unenhanced liver, spleen, right adrenal gland, pancreas, a nd gallbladder are unremarkable. Calcifications within the left adrenal gland. No renal or ureteral c alculi. No hydronephrosis. A few subcentimeter bilateral renal hypodense lesions. These are incomplet amor characterized on this noncontrast study but statistically represent cysts. Normal caliber abdomin al aorta. No retroperitoneal lymphadenopathy. Mild bladder wall thickening which could be due to unde rdistention. The uterus and bilateral adnexa are within normal limits. There is suboptimal evaluation for bowel pathology due to the lack of intravenous and oral contrast. However, there is no definite bowel wall thickening or obstruction. A few colonic diverticula. No evidence for acute diverticulitis . Normal appendix. The majority the colon is fluid-filled. IMPRESSION: 1. The majority of the colon is fluid-filled which can be seen in the setting of a gastroenteritis/di arrheal illness. 2. No definite bowel wall thickening or obstruction. 3. Normal appendix. 4. Healing nondisplaced distal sacral fracture. 5. Mild bladder wall thickening. This is likely due to underdistention. 6. A few tree-in-bud nodular opacities within the left lower lobe. This favors a mild infectious bron chiolitis. 7. Additional findings as described above. ACT 112: Negative or not required by law. Electronically signed by: Joel Guardado M.D. 12/10/2020 2:16 PM
[2020-12-10] MEDS ORDERED: clonazePAM 0.5 MG TAB PO PRN (16:13)
[2020-12-10] MEDS ORDERED: ONDANSETRON 4 MG OD TAB PO PRN (16:13)
--- NOTE | 2020-12-10 16:18 | History & Physical Report ---
Date of Service December 10, 2020 Assessment & Plan (1) Fatigue: Plan: Likely multifactorial releated to recent diarrhea, potential GI blood loss, worsening anemia, poor oral intake resulting in dehydration (2) Anemia: Plan: Monitor for stability due to concern for ongoing blood loss - will hold transfusion for now but if worsening anemia, may need to consider in view of pt's significant cardiac history (3) Melena: Plan: Heme positive black stool in ED (4) Pulmonary edema: (5) Acute kidney injury superimposed on CKD: Plan: Likely due to dehydration. Baseline creatinine as outpatient is 1.4-1.5 (6) Hyponatremia: Plan: Outpatient labs reviewed - appears to be chronic with baselined 125-127 (7) [employer] (current) use of anticoagulants: Plan: Goal INR is 2.5-3.5. Pt follows with anticoagulation clinic through [facility] (8) History of aortic valve replacement with bioprosthetic valve: (9) Dyslipidemia: (10) Arteriosclerotic coronary artery disease: (11) COPD, mild: (12) Anxiety: (13) Esophageal reflux: (14) Gastroparesis: Plan: Complicated patient with multiple acute issues and co-morbidities as noted above. - Consult GI for possible GI bleed - continue PPI therapy, follow H&H - Consult cardiology due to extensive cardiac history, pt on chronic AC but currently holding due to possible GI bleed - Holding diuretics due to MINDY/dehydration - received 500 cc bolus IVF in ED but will need to be cautious with fluids due evidence of pulmonary edema - Serial labs - Monitor on telemetry - Holding BP meds except beta-raphael which has been continued with holds for hypotension - Noted to have positive COVID but no evidence of hypoxia at present - will continue to monitor, isolation precautions ordered - Eventual PT/OT will likely be needed due to significant deconditioning - May need to consider rehab at discharge - case management consulted for eventual d/c planning - Continue Reglan for gastroparesis, anxiety meds Pt seen and reviewed with attending physician, Dr. Mehta. Plan of care discussed and as outlined above with additional information in Dr. Mehta's note. Code Status: Full Code DVT prophylaxis: SCDs - AC On hold due to potential GI bleed Oliver Coronel PA-C History of Present Illness Chief Complaint: Weakness Primary Care Provider: Radha Rodriguez MD This is a 65 y/o female with a complicated PMH including CAD, valvular heart disease, prior AVR, prior ventricular fibrillation, chronic anticoagulation, COPD, anemia, hyponatremia, gastroparesis, GERD, dyslipidemia, CKD, anxiety, osteoporosis, and migraines who presents to the ED today with progressive weakness, fatigue, and recurrent falls. The patient struggled with giving the history so her at bedside helped answer some of the questions. Additionally, her outpatient records were extensively reviewed. Apparently, she started with diarrhea about 2-3 weeks ago with up to six BM/day and nocturnal stooling. She does note that stools have been black in color but no bright blood. Diarrhea seems to be improving over last couple days - last BM was yesterday, still black but less loose. She thinks that she may have taken Pepto for the diarrhea at some point but has not been taking it consistently. She is on chronic anticoagulation and aspirin 3-4x/week but denies ibuprofen or naproxen. She has noted nausea and a decreased appetite with poor oral intake over the past several days. She denies vomiting, heartburn, indigestion, significant abdominal pain or dysphagia. She reports that she has not been feeling herself for quite a while but things have especially worsened over the past two weeks. She is easily fatigued with minimal activity. Her reports that she may sleep 16 hours in a day and still feel tired. She has also been "spacing out" frequently when he is talking to her. She notes dizziness with position changes. She denies chest pain, palpitations, SOB, DILLON, or wheezing. She has noted a sore throat for the past week with associated cough that is intermittently productive. She denies fevers, chills or sweats. No change in taste or smell. No significant pedal edema. No known sick contacts or recent travel. She was vaccinated for COVID with the Moderna vaccine - second dose in June. Allergies Allergy/AdvReac Type Severity Reaction Status Date / Time paroxetine Allergy Unknown UNKNOWN Verified 04/03/20 14:58 sumatriptan Allergy Unknown UNKNOWN Verified 04/03/20 14:58 citalopram AdvReac Intermediate AGITATION, Verified 04/03/20 14:58 BURNING SENSATION dicyclomine AdvReac Intermediate HEADACHE Verified 04/03/20 14:58 Home Medications Medication Instructions Recorded Confirmed Type albuterol sulfate 90 mcg/actuation 2 puffs INH QID PRN #8 gm 10/31/18 12/10/20 Rx aerosol inhaler (Proventil HFA) colchicine 0.6 mg tablet 0.6 mg PO BID #60 tab 10/31/18 12/10/20 Rx fluticasone furoate 100 1 puffs INH DAILY #60 ea 10/31/18 12/10/20 Rx mcg-vilanterol 25 mcg/dose inhalation powder (Breo Ellipta) lansoprazole 30 mg capsule,delayed 30 mg PO DAILY #30 cap 10/31/18 12/10/20 Rx release magnesium oxide 400 mg PO DAILY #30 tab 10/31/18 12/10/20 Rx tiotropium bromide 18 mcg capsule 1 cap INH DAILY #90 puffs 10/31/18 12/10/20 Rx with inhalation device (Spiriva with HandiHaler) acetaminophen 500 mg tablet 500 mg PO HS PRN tab 12/29/18 12/10/20 History calcium carbonate 500 mg (1,250 2 tab PO DAILY tab 12/29/18 12/10/20 History mg)-vitamin D3 200 unit tablet clonazepam 0.5 mg tablet 0.5 mg PO TID PRN tab 12/29/18 12/10/20 History metoclopramide HCl 5 mg tablet 5 mg PO BID tab 12/29/18 12/10/20 History montelukast 10 mg tablet 10 mg PO HS tab 12/29/18 12/10/20 History multivitamin (Multiple Vitamins) 1 tab PO DAILY 12/29/18 12/10/20 History ondansetron HCl 4 mg tablet 4 mg PO Q8H PRN tab 12/29/18 12/10/20 History vitamin B complex 1 tab PO DAILY 12/29/18 12/10/20 History gabapentin 300 mg capsule 300 mg PO TID 08/27/19 12/10/20 History lisinopril 20 mg tablet 20 mg PO DAILY #90 tab 10/01/19 12/10/20 Rx nitroglycerin 0.4 mg sublingual 0.4 mg SL Q5M PRN #20 tab 12/18/19 12/10/20 Rx tablet metoprolol tartrate 50 mg tablet 50 mg PO BID #180 tab 12/31/19 12/10/20 Rx aspirin 81 mg tablet,delayed 81 mg PO .COMPLEX #30 tab 01/15/20 12/10/20 Rx release hydrochlorothiazide 12.5 mg tablet 12.5 mg PO DAILY #30 tab 03/12/20 12/10/20 Rx spironolactone 25 mg tablet 25 mg PO DAILY #30 tab 03/12/20 12/10/20 Rx atorvastatin 40 mg tablet 40 mg PO HS 12/10/20 12/10/20 History denosumab 60 mg/mL subcutaneous 60 mg SUBCUT DIRECTED 12/10/20 12/10/20 History syringe (Prolia) duloxetine 60 mg capsule,delayed 90 mg PO DAILY 12/10/20 12/10/20 History release loratadine 10 mg tablet 10 mg PO DAILY PRN 12/10/20 12/10/20 History topiramate 25 mg tablet 25 mg PO BID 12/10/20 12/10/20 History warfarin 2 mg tablet See Rx Instructions .ROUTE .COMPLEX 12/10/20 12/10/20 History Past Med/Surg History Medical History Acquired tricuspid valve insufficiency Anxiety Arteriosclerotic coronary artery disease CKD (chronic kidney disease) stage 3, GFR 30-59 ml/min COPD, mild Dyslipidemia Esophageal reflux Gastroparesis History of ST elevation myocardial infarction (STEMI) History of ventricular fibrillation Isolated premature ventricular contractions snf (current) use of anticoagulants Mitral stenosis Mitral valve insufficiency Osteoarthrosis Peripheral edema Reactive airway disease Surgical History H/O aortic root repair H/O aortic valve replacement H/O mitral valve repair H/O myomectomy History of aortic valve replacement with bioprosthetic valve History of bowel resection S/P VSD closure Family History Other Heart disease Social History Smoking Status: Former smoker Hx Alcohol Use: No Hx Substance Use: No Preferred Language: Kyrgyz Communication Ability: Effective Beliefs That Will Affect Care: None marital status: Current Living Situation: Spouse current occupational status: disabled Feels Safe at Home: No Safety Concerns: Feels Safe At This Time Assistive Devices: Cane Review of Systems Review of Systems: All systems reviewed & are unremarkable except as noted in HPI & below Constitutional: + fatigue, + weakness and + anorexia; no fever, no chills and no sweats Eyes: no diplopia Ear, Nose, Mouth, Throat: + epistaxis (2-3 episodes in past 2 weeks) and + sore throat; no dysphagia Respiratory: + cough; no dyspnea on exertion, no hemoptysis and no wheezing Cardiovascular: + lightheadedness; no chest pain, no palpitations, no syncope and no edema Gastrointestinal: as per Subjective / HPI Genitourinary: no dysuria, no urinary frequency and no hematuria Musculoskeletal: + muscle weakness; no back pain and no neck pain Integumentary: + unusual bruising; no yellowing of the skin Neurologic: + unsteadiness, + falls, + generalized weakness, + headache(s) and + memory loss Psychiatric: + anxiety; no confusion and no hallucinations Physical Exam Constitutional: + frail appearing; no acute distress Eyes: + anicteric sclerae Neck: trachea midline Respiratory: no respiratory distress and no labored breathing Auscultation: + crackles (bibasilar); no wheezes Cardiovascular: Rate/Rhythm: regular rate and regular rhythm Heart Sounds: + click and + murmur Vessels: dorsalis pedis pulses present and radial pulses present Extremities: no calf tenderness and no pedal edema Gastrointestinal (Abdomen): Inspection/Auscultation: normal bowel sounds; abdomen not distended Percussion/Palpation: abdomen soft; abdomen nontender Musculoskeletal: Head/Neck/Chest: normocephalic and neck supple Skin: ecchymosis under right eye, on forehead Neurologic: moves all extremities Speech / Cognition: normal speech Seems to lose focus during exam/history - frequently had to be refocused to questions Results & Data Results & Data ([facility]) Vital Signs (Past 12 Hours) Vital Signs Temp Pulse Pulse Resp BP BP Pulse Ox 12/10/20 14:46 64 18 115/64 94 12/10/20 13:41 37 C 60 16 91/59 L 12/10/20 12:30 59 L 17 114/54 L 96 12/10/20 12:00 62 18 96/57 L 12/10/20 11:54 95 12/10/20 11:27 37.2 C 62 16 98/56 L 95 Laboratory Results Laboratory Results - last 24 hr 12/10/20 12/10/20 12/10/20 12:03 12:03 12:03 WBC 2.54 L RBC 3.04 L Hgb 9.4 L Hct 27.2 L MCV 89.5 MCH 30.9 MCHC 34.6 RDW Std Deviation 45.0 RDW Coeff of Emily 13.6 Plt Count 141 MPV 8.6 Immature Gran % (Auto) 0.8 Neut % (Auto) 72.4 Lymph % (Auto) 15.4 Greene % (Auto) 10.2 Eos % (Auto) 1.2 Baso % (Auto) 0.0 Neut # (Auto) 1.84 Lymph # (Auto) 0.39 L Greene # (Auto) 0.26 Eos # (Auto) 0.03 Baso # (Auto) 0.00 Immature Gran # (Auto) 0.02 PT 33.8 H INR 3.7 H APTT 68.0 H* PTT Ratio 2.6 Sodium Potassium Chloride Carbon Dioxide Anion Gap BUN Creatinine Est Cr Clr Drug Dosing Est GFR ( Amer) Est GFR (Non-Af Amer) BUN/Creatinine Ratio Glucose Calcium Magnesium Total Bilirubin AST ALT Alkaline Phosphatase Total Creatine Kinase Troponin I NT-Pro-B Natriuret Pep Total Protein Albumin Globulin Albumin/Globulin Ratio TSH Free T4 COVID-19 Eval Order SARS-CoV-2 (PCR) Blood Type A Negative Antibody Screen NEGATIVE 12/10/20 12/10/20 12/10/20 12:03 14:15 14:15 WBC RBC Hgb Hct MCV MCH MCHC RDW Std Deviation RDW Coeff of Emily Plt Count MPV Immature Gran % (Auto) Neut % (Auto) Lymph % (Auto) Greene % (Auto) Eos % (Auto) Baso % (Auto) Neut # (Auto) Lymph # (Auto) Greene # (Auto) Eos # (Auto) Baso # (Auto) Immature Gran # (Auto) PT INR APTT PTT Ratio Sodium 129 L Potassium 3.4 L Chloride 95 L Carbon Dioxide 26 Anion Gap 9.0 BUN 23 H Creatinine 1.98 H Est Cr Clr Drug Dosing 21.4 Est GFR ( Amer) 29.8 Est GFR (Non-Af Amer) 25.7 BUN/Creatinine Ratio 11.5 Glucose 113 H Calcium 8.0 L Magnesium 2.2 Total Bilirubin 0.4 AST 41 H ALT 41 Alkaline Phosphatase 45 Total Creatine Kinase 383 H Troponin I 0.034 NT-Pro-B Natriuret Pep 3290 H Total Protein 6.4 Albumin 3.1 L Globulin 3.3 Albumin/Globulin Ratio 0.9 TSH 0.173 L Free T4 1.23 COVID-19 Eval Order Covid19 at [facility] SARS-CoV-2 (PCR) POSITIVE A* Blood Type Antibody Screen Diagnostic Findings CT Cervical Spine 12/10/20 - IMPRESSION: No acute cervical spine fracture or subluxation. Chest X-ray 12/10/20 - IMPRESSION: 1. No large infiltrates or consolidative lesions. 2. Stable cardiomegaly. 3. Atherosclerosis. 4. Mild hyperinflation, possible COPD pattern. CT Face 12/10/20 - IMPRESSION: There is no evidence of facial bone fracture. CT Head 12/10/20 - Impression: No acute intracranial abnormality. CT Abd/Pel 12/10/20 - IMPRESSION:1. The majority of the colon is fluid-filled which can be seen in the setting of a gastroenteritis/diarrheal illness. 2. No definite bowel wall thickening or obstruction. 3. Normal appendix. 4. Healing nondisplaced distal sacral fracture. 5. Mild bladder wall thickening. This is likely due to underdistention. 6. A few tree-in-bud nodular opacities within the left lower lobe. This favors a mild infectious bronchiolitis. 7. Additional findings as described above. Medications Administered Discontinued Medications Pantoprazole Sodium 40 mg/ (Syringe) 10 mls @ 5 mls/min IV NOW ONE Stop: 12/10/20 14:16 Last Admin: 12/10/20 15:44 Dose: 5 mls/min Documented by: [id number] Famotidine (Pepcid 20mg Iv Push) 20 mg in 5 mls @ 2.5 mls/min IV NOW STA Stop: 12/10/20 14:16 Last Admin: 12/10/20 14:29 Dose: 2.5 mls/min Documented by: [id number] Sodium Chloride (Nss 1000ml) 500 mls @ 999 mls/hr IV .Q31M ONE Stop: 12/10/20 14:45 Last Admin: 12/10/20 14:29 Dose: 999 mls/hr Documented by: [id number] Code Status & VTE Plan VTE Prophylaxis Plan VTE Prophylaxis will be ordered: Yes Supervising Physician Co-Signing Physician Notes Attending addendum The patient was seen and examined in medical telemetry unit and in the Covid room She complains of generalized weakness but denies any cough and/or shortness of breath She denies any abdominal pain, nausea and or vomiting On examination No apparent distress at rest Hemodynamically stable Chest-decreased breath sounds at the bases Heart-S1-S2, regular. 2/6 ESM over precordium Abdomen-benign Extremities-trace edema bilaterally Her admission labs, imaging studies and EKG reviewed Has diarrhea with black tarry stool with low hemoglobin complicated by use of aspirin and Coumadin-has been on Protonix drip and GI consulted Significant CAD with valvular heart disease and bioprosthetic valve-no acute decompensation Noted to be Covid positive with history of Covid vaccination but remains asymptomatic Agree with assessment and plan as outlined above by MAK Elena DR
[2020-12-10] MEDS ORDERED: PANTOPRAZOLE BOLUS/DRIP 1 EA IV STA (16:24)
[2020-12-10] MEDS ORDERED: PANTOprazole 80 MG in DEXTROSE 5% 100 ML IV ONE (16:45)
[2020-12-10] MEDS ORDERED: POTASSIUM CHLORIDE CRTAB 20 MEQ TABCR PO STA (16:51)
[2020-12-10] MEDS ORDERED: ACETAMINOPHEN 325 MG TAB PO PRN (16:58)
[2020-12-10] MEDS ORDERED: NITROGLYCERIN SL 0.4 MG/TAB TAB SL PRN (16:58)
[2020-12-10] MEDS: PANTOprazole 40 MG in DEXTROSE 5% 100 ML IV SCH ×2 (17:15→21:26)
[2020-12-10 19:04] LABS: Hematocrit (blood only) 27.3 % (37-47); Hemoglobin 9.4 g/dL (12.0-16.0)
[2020-12-10] MEDS: GABAPENTIN 300 MG CAP PO SCH (20:49)
[2020-12-10] MEDS: ATORVASTATIN 40 MG TAB PO SCH (20:49)
[2020-12-10] MEDS: METOCLOPRAMIDE HCL 5 MG TABLET PO SCH (20:50)
[2020-12-10] MEDS: METOPROLOL TARTRATE 50 MG TAB PO SCH (20:50)
[2020-12-10] MEDS: MONTELUKAST SODIUM 10 MG TABLET PO SCH (20:51)
[2020-12-10] MEDS: TOPIRAMATE 25 MG TAB PO SCH (20:51)
[2020-12-11 00:07] LABS: Calcium 7.9 mg/dl (8.5-10.1); Creatinine Clr Calc Pharmacy 22.5 ml/min; Est GFR (Non-African American) 28.4 ml/min; Potassium 3.9 mmol/L (3.5-5.1)
[2020-12-11 00:38] LABS: Troponin I 0.048 ng/ml (0-0.045)
[2020-12-11] MEDS: PANTOprazole 40 MG in DEXTROSE 5% 100 ML IV SCH ×3 (03:51→12:25)
--- NOTE | 2020-12-11 05:40 | Electrocardiogram Report ---
Test Reason : Blood Pressure : / mmHG Vent. Rate : 060 BPM Atrial Rate : 060 BPM P-R Int : 000 ms QRS Dur : 116 ms QT Int : 446 ms P-R-T Axes : 000 -47 135 degrees QTc Int : 446 ms Poor data quality, interpretation may be adversely affected Probable Sinus rhythm Left anterior fascicular block Septal infarct (cited on or before 22-DEC-2010) Abnormal ECG When compared with ECG of 28-SEP-2016 15:27, Incomplete right bundle branch block is now Present Confirmed by Ford Posey ([id number]) on 12/11/2020 5:39:51 AM Referred By: Confirmed By:Ford Posey
[2020-12-11] MEDS: TOPIRAMATE 25 MG TAB PO SCH ×2 (07:55→21:11)
[2020-12-11] MEDS: METOPROLOL TARTRATE 50 MG TAB PO SCH ×2 (07:55→21:10)
[2020-12-11] MEDS: FLUTICASONE/VILANTEROL 100/25MCG 14 PUFFS/INHALER INH SCH (07:55)
[2020-12-11] MEDS: METOCLOPRAMIDE HCL 5 MG TABLET PO SCH ×2 (07:55→21:11)
[2020-12-11] MEDS: DULoxetine HCL 30 MG CAP PO SCH (07:55)
[2020-12-11] MEDS: GABAPENTIN 300 MG CAP PO SCH ×3 (07:56→21:11)
[2020-12-11] MEDS: UMECLIDINIUM BROMIDE 62.5MCG/BLISTER 7 PUFFS/INHALER INH SCH (07:56)
[2020-12-11 08:44] LABS: Appearance Urine Clear (Clear); Bilirubin Urine Negative (Negative); Blood Urine Negative (Negative); Color Urine Yellow; Glucose Urine UA Negative (Negative); Ketones Urine Negative (Negative); Leukocyte Esterase Urine Negative (Negative); Nitrite Urine Negative (Negative); Protein Urine Negative (Negative); Specific Gravity Urine 1.012 (1.000-1.030); Urobilinogen Urine Negative (Negative); pH Urine 7.5 (4.5-7.5)
[2020-12-11 09:15] LABS: Eosinophils # (auto) 0.12 K/uL (0-0.5); Eosinophils % (auto) 3.6 %; Hematocrit (blood only) 25.9 % (37-47); Hemoglobin 8.9 g/dL (12.0-16.0); Immature Granulocytes # (auto) 0.03 K/uL (0.00-0.02); Immature Granulocytes % (auto) 0.9 %; Lymphocytes # (auto) 0.99 K/uL (1.2-3.4); Mean Corpuscular Hemoglobin 30.3 pg (25-34); Mean Corpuscular Hgb Conc 34.4 g/dL (32-36); Mean Corpuscular Volume 88.1 fL (80-100); Mean Platelet Volume 9.1 fL (7.4-10.4); Monocytes # (auto) 0.27 K/uL (0.11-0.59); Monocytes % (auto) 8.2 %; Neutrophils # (auto) 1.89 K/uL (1.4-6.5); Neutrophils % (auto) 57.3 %; Platelet Count 175 K/uL (130-400); RDW Coefficient of Variation 13.6 % (11.5-14.5); RDW Standard Deviation 44.6 fL (36.4-46.3); Red Blood Count 2.94 M/uL (4.2-5.4)
[2020-12-11 09:18] LABS: INR 3.4 (0.9-1.1)
[2020-12-11 09:21] LABS: Amphetamines+Metham, Urine Neg (Neg); Barbiturates, Urine Neg (Neg); Benzodiazepine, Urine Neg (Neg); Cocaine, Urine Neg (Neg); MDMA (Ecstacy), Urine Neg (Neg); Methadone, Urine Neg (Neg); Opiate, Urine Neg (Neg); Phencyclidine, Urine Neg (Neg)
[2020-12-11 09:31] LABS: BUN Creatinine Ratio 11.3 (10-20); Calcium 7.8 mg/dl (8.5-10.1); Creatinine Clr Calc Pharmacy 23.6 ml/min; Est GFR (Non-African American) 30.2 ml/min; Potassium 4.2 mmol/L (3.5-5.1)
--- NOTE | 2020-12-11 13:41 | Communication Note ---
Date of Service: December 11, 2020 65 yr old female admitted with COVID 19 Anemic, Hb 12.9 in September admitted with Hb 9.4, repeat this morning also 9.4,and this afternoon 8.9. BUN today 20. Heme positive black fecal material on exam in ED but no gross GI bleeding since arriavl. Anticoagulated for mechanical valve. INR today is 3.4. Will defer endoscopy for now. Will consider OP EGD, colonoscopy after recovers from COVID. Will reconsider OP endoscopy if obvious gross GI bleeding and further/dramatic drop in Hb. Gi will sign off. Please notify us if new/worsening GI issues.
--- NOTE | 2020-12-11 15:50 | Hospitalist Progress Note ---
Date of Service December 11, 2020 Assessment & Plan (1) Fatigue: Plan: Likely multifactorial releated to recent diarrhea, potential GI blood loss, worsening anemia, poor oral intake resulting in dehydration No more diarrhea and no more blood in the stool We will get PT and OT evaluation and may need placement She has been vaccinated for COVID-19 virus Noted to have positive COVID but no evidence of hypoxia at present - will continue to monitor, isolation precautions ordered No cough, shortness of breath, nausea and vomiting or desaturation Does not qualify for any treatment for COVID-19 infection (2) Anemia: Plan: Monitor for stability due to concern for ongoing blood loss - will hold transfusion for now but if worsening anemia, may need to consider in view of pt's significant cardiac history Appreciate GI input and recommendation No more GI bleed and or melena Endoscopy as an outpatient (3) Melena: Plan: Heme positive black stool in ED Normal melena and or diarrhea We will change the Protonix to p.o. twice daily (4) Pulmonary edema: (5) Acute kidney injury superimposed on CKD: Plan: Likely due to dehydration. Baseline creatinine as outpatient is 1.4-1.5 We will advised to drink reasonable amount of fluid (6) Hyponatremia: Plan: Outpatient labs reviewed - appears to be chronic with baselined 125-127 History of chronic hyponatremia We will monitor in the hospital (7) prison (current) use of anticoagulants: Plan: Goal INR is 2.5-3.5. Pt follows with anticoagulation clinic through [facility] We will restart Coumadin (8) History of aortic valve replacement with bioprosthetic valve: Plan: Denies any cardiac symptoms Awaiting cardiology evaluation (9) Dyslipidemia: (10) Arteriosclerotic coronary artery disease: (11) COPD, mild: Plan: No acute exacerbation (12) Anxiety: (13) Esophageal reflux: (14) Gastroparesis: Plan: Code Status: Full Code DVT prophylaxis: SCDs - AC On hold due to potential GI bleed Admission and Anticipated Discharge Date Admission Date: December 10, 2020 Subjective 12/11/2020 The patient was seen and examined in medical telemetry unit and in the Covid room She does not have any Covid related symptoms Complains of generalized weakness but no chest pain, palpitation or shortness of breath Review of Systems Review of Systems: All systems reviewed and are unremarkable except as noted below Constitutional: General weakness Physical Exam Physical Exam: Lying in bed comfortably Constitutional: + ill appearing and average body habitus Eyes: PERRL, conjunctivae normal, anicteric sclerae ENMT: external ear and nose normal, oropharynx normal Neck: trachea midline, no thyromegaly Respiratory: no respiratory distress Auscultation: lungs clear to auscultation bilaterally Cardiovascular: Rate/Rhythm: regular rate, regular rhythm and + bradycardic Heart Sounds: normal S1, normal S2 and + murmur (2/6 ESM over precordium) Gastrointestinal (Abdomen): Inspection/Auscultation: normal bowel sounds; abdomen not distended Percussion/Palpation: abdomen soft; abdomen nontender Musculoskeletal: No acute arthritis in any joint Neurologic: Alert, awake and oriented x3. Generally very weak and lethargic. No focal sensory no motor deficit appreciated Results & Data Results & Data ([facility]) Vital Signs (Past 12 Hours) Vital Signs Temp Pulse Pulse Resp BP Pulse Ox 12/11/20 13:43 37.1 C 12/11/20 12:20 37.5 C 78 16 109/74 96 12/11/20 09:38 62 12/11/20 07:52 37.1 C 65 18 118/77 94 Laboratory Results Short CBC 12/10/20 12/11/20 Range/Units 18:30 08:53 WBC 3.30 L (4.8-10.8) K/uL Hgb 9.4 L 8.9 L (12.0-16.0) g/dL Hct 27.3 L 25.9 L (37-47) % Plt Count 175 (130-400) K/uL BMP 12/10/20 12/11/20 23:32 08:53 Sodium 128 L 129 L Potassium 3.9 4.2 Chloride 95 L 97 L Carbon Dioxide 25 23 BUN 22 H 20 H Creatinine 1.82 H 1.73 H Glucose 177 H 100 H Calcium 7.9 L 7.8 L Cardiac Enzymes 12/10/20 12/10/20 Range/Units 18:30 23:32 Troponin I 0.043 0.048 H* (0-0.045) ng/ml Urine 12/11/20 Range/Units 08:15 Urine Color Yellow Urine Appearance Clear (Clear) Urine pH 7.5 (4.5-7.5) Ur Specific [place] 1.012 (1.000-1.030) Urine Protein Negative (Negative) Urine Glucose (UA) Negative (Negative) Medications Administered Current Inpatient Medications Acetaminophen (Acetaminophen 325 Mg Tab) 650 mg PO Q4H PRN PRN Reason: Pain or Fever Stop: 01/09/21 16:57 Last Admin: 12/11/20 12:26 Dose: 650 mg Documented by: Atorvastatin Calcium (Atorvastatin 40 Mg Tab) 40 mg PO HS ERI Stop: 01/09/21 20:59 Last Admin: 12/10/20 20:49 Dose: 40 mg Documented by: Clonazepam (Clonazepam 0.5 Mg Tab) 0.5 mg PO TID PRN PRN Reason: Anxiety Stop: 01/09/21 16:12 Duloxetine HCl (Duloxetine Hcl 30 Mg Cap) 90 mg PO DAILY ERI Stop: 01/10/21 08:59 Last Admin: 12/11/20 07:55 Dose: 90 mg Documented by: Fluticasone/Vilanterol (Fluticasone/Vilanterol 100/25mcg 14 Puffs/Inhaler) 1 puffs INH DAILY ERI Stop: 01/10/21 08:59 Last Admin: 12/11/20 07:55 Dose: 1 puffs Documented by: Gabapentin (Gabapentin 300 Mg Cap) 300 mg PO TID ERI Stop: 01/09/21 20:59 Last Admin: 12/11/20 12:26 Dose: 300 mg Documented by: Pantoprazole Sodium 40 mg/ (Dextrose) 100 mls @ 20 mls/hr IV Q5H ERI Stop: 01/09/21 16:59 Last Admin: 12/11/20 12:25 Dose: 8 mg/hr, 20 mls/hr Documented by: Metoclopramide HCl (Metoclopramide Hcl 5 Mg Tablet) 5 mg PO BID ERI Stop: 01/09/21 20:59 Last Admin: 12/11/20 07:55 Dose: 5 mg Documented by: Metoprolol Tartrate (Metoprolol Tartrate 50 Mg Tab) 50 mg PO BID ERI Stop: 01/09/21 20:59 Last Admin: 12/11/20 07:55 Dose: 50 mg Documented by: Montelukast Sodium (Montelukast Sodium 10 Mg Tablet) 10 mg PO HS ERI Stop: 01/09/21 20:59 Last Admin: 12/10/20 20:51 Dose: 10 mg Documented by: Nitroglycerin (Nitroglycerin Sl 0.4 Mg/Tab Tab) 0.4 mg SL UD PRN PRN Reason: Chest Pain Stop: 01/09/21 16:57 Ondansetron HCl (Ondansetron 4 Mg Od Tab) 4 mg PO Q8H PRN PRN Reason: Nausea And Vomiting Stop: 01/09/21 16:12 Topiramate (Topiramate 25 Mg Tab) 25 mg PO BID [facility] Stop: 01/09/21 20:59 Last Admin: 12/11/20 07:55 Dose: 25 mg Documented by: Umeclidinium [place] (Umeclidinium [place] 62.5mcg/Blister 7 Puffs/Inhaler) 1 puffs INH DAILY [facility] Stop: 01/10/21 08:59 Last Admin: 12/11/20 07:56 Dose: 1 puffs Documented by:
[2020-12-11] MEDS ORDERED: NITROGLYCERIN SL 0.4 MG/TAB TAB SL PRN (15:51)
[2020-12-11] MEDS ORDERED: ALBUTEROL HFA 8 GM INHALER INH PRN (15:51)
[2020-12-11] MEDS ORDERED: LORATADINE 10 MG TAB PO PRN (15:51)
[2020-12-11] MEDS ORDERED: NON-FORMULARY MEDICATION (Denosumab [Prolia] 60 mg/mL Syringe) SQ SCH (16:00)
--- NOTE | 2020-12-11 16:07 | Cardiology Consultation ---
Date of Consultation December 11, 2020 Assessment & Plan (1) Anemia: (2) Elevated INR: (3) History of aortic valve replacement with bioprosthetic valve: (4) Arteriosclerotic coronary artery disease: Agree with holding her Coumadin and aspirin for the time being, trending hemoglobin, Protonix. She does not appear to be acutely volume overloaded. As noted, the indication for Coumadin is that it was felt that she had a thrombotic event with resultant LAD occlusion in the setting of bioprosthetic aortic valve dating back to 2013. Her anemia appears like it could be somewhat chronic. I question if perhaps her generalized fatigue symptoms are actually a manifestation of breakthrough SARS-CoV-2 infection in the setting of previous vaccination. Continue supportive care. History of Present Illness Attending Physician: Shy Mehta MD History of Present Illness Donna Ugarte is a 65 year old female seen in cardiology consult per the request of Dr Mehta for management of the patient's complex cardiac issues with concerns of gastrointestinal bleeding on coumadin . The patient had recently established with Dr Esquivel of our practice having previously followed with Dr Morales. She presented via the emergency room yesterday with chief complaint of generalized fatigue, recent diarrhea with dark stool, no kenzie blood. Her INR has been 3.7 yesterday, and is down to 3.4 today off of Coumadin. Her hemoglobin had been 12.5 on past outpatient CBC dating back to September,, however was down to 11.1 on 09/01/2020, 10.8 on 10/01/2020, and is now down to 9.4 and 8.9 on measurements performed this hospital stay. She has vaccine against COVID-19 having received the Moderna vaccine with most recent dose on 06/22/20 per her outpatient chart. She has tested positive for SARS-CoV-2 in the emergency room yesterday. Her oxygen saturation has been stable, most recently 96% room air, and she denies any respiratory complaints. At the time my assessment she is in no acute distress. Past Cardiac History: -As obtained from review of previous records History of congenital heart disease, status post surgical repair of a ventricula r septal defect and mitral valve at the age of 11 at [facility]. Developed subaortic stenosis with subaortic membrane and underwent aortic root homograft and myomectomy for subaortic obstruction, 2000 2010 cardiac catheterization in [place], revealed normal coronary arteries subsequent redo sternotomy, redo aortic valve replacement with 21 mm Romeo- Tran pericardial valve and decalcification of the aorta [facility] 03/13/2014, presented to [facility] by private automobile with acute onset substernal chest discomfort, cardiac arrest while in emergency room waiting room, for which he underwent defibrillation x2, intubated, underwent emergent cardiac catheterization with findings of totally occluded left anterior descending coronary artery, underwent aspiration thrombectomy PTCA, felt to be a thrombotic event without evidence of significant atherosclerosis. LVEF 45-50 at that time with findings of anterolateral PA, has been maintained on Coumadin and aspirin since discharge from that acute event March,. Allergies Allergy/AdvReac Type Severity Reaction Status Date / Time paroxetine Allergy Unknown UNKNOWN Verified 04/03/20 14:58 sumatriptan Allergy Unknown UNKNOWN Verified 04/03/20 14:58 citalopram AdvReac Intermediate AGITATION, Verified 04/03/20 14:58 BURNING SENSATION dicyclomine AdvReac Intermediate HEADACHE Verified 04/03/20 14:58 Home Medications Medication Instructions Recorded Confirmed Type albuterol sulfate 90 mcg/actuation 2 puffs INH QID PRN #8 gm 10/31/18 12/10/20 Rx aerosol inhaler (Proventil HFA) colchicine 0.6 mg tablet 0.6 mg PO BID #60 tab 10/31/18 12/10/20 Rx fluticasone furoate 100 1 puffs INH DAILY #60 ea 10/31/18 12/10/20 Rx mcg-vilanterol 25 mcg/dose inhalation powder (Breo Ellipta) lansoprazole 30 mg capsule,delayed 30 mg PO DAILY #30 cap 10/31/18 12/10/20 Rx release magnesium oxide 400 mg PO DAILY #30 tab 10/31/18 12/10/20 Rx tiotropium bromide 18 mcg capsule 1 cap INH DAILY #90 puffs 10/31/18 12/10/20 Rx with inhalation device (Spiriva with HandiHaler) acetaminophen 500 mg tablet 500 mg PO HS PRN tab 12/29/18 12/10/20 History calcium carbonate 500 mg (1,250 2 tab PO DAILY tab 12/29/18 12/10/20 History mg)-vitamin D3 200 unit tablet clonazepam 0.5 mg tablet 0.5 mg PO TID PRN tab 12/29/18 12/10/20 History metoclopramide HCl 5 mg tablet 5 mg PO BID tab 12/29/18 12/10/20 History montelukast 10 mg tablet 10 mg PO HS tab 12/29/18 12/10/20 History multivitamin (Multiple Vitamins) 1 tab PO DAILY 12/29/18 12/10/20 History ondansetron HCl 4 mg tablet 4 mg PO Q8H PRN tab 12/29/18 12/10/20 History vitamin B complex 1 tab PO DAILY 12/29/18 12/10/20 History gabapentin 300 mg capsule 300 mg PO TID 08/27/19 12/10/20 History lisinopril 20 mg tablet 20 mg PO DAILY #90 tab 10/01/19 12/10/20 Rx nitroglycerin 0.4 mg sublingual 0.4 mg SL Q5M PRN #20 tab 12/18/19 12/10/20 Rx tablet metoprolol tartrate 50 mg tablet 50 mg PO BID #180 tab 12/31/19 12/10/20 Rx aspirin 81 mg tablet,delayed 81 mg PO .COMPLEX #30 tab 01/15/20 12/10/20 Rx release hydrochlorothiazide 12.5 mg tablet 12.5 mg PO DAILY #30 tab 03/12/20 12/10/20 Rx spironolactone 25 mg tablet 25 mg PO DAILY #30 tab 03/12/20 12/10/20 Rx atorvastatin 40 mg tablet 40 mg PO HS 12/10/20 12/10/20 History denosumab 60 mg/mL subcutaneous 60 mg SUBCUT DIRECTED 12/10/20 12/10/20 History syringe (Prolia) duloxetine 60 mg capsule,delayed 90 mg PO DAILY 12/10/20 12/10/20 History release loratadine 10 mg tablet 10 mg PO DAILY PRN 12/10/20 12/10/20 History topiramate 25 mg tablet 25 mg PO BID 12/10/20 12/10/20 History warfarin 2 mg tablet See Rx Instructions .ROUTE .COMPLEX 12/10/20 12/10/20 History Patient History Medical History Acquired tricuspid valve insufficiency Anxiety Arteriosclerotic coronary artery disease CKD (chronic kidney disease) stage 3, GFR 30-59 ml/min COPD, mild Dyslipidemia Esophageal reflux Gastroparesis History of ST elevation myocardial infarction (STEMI) History of ventricular fibrillation Isolated premature ventricular contractions tank terminal gauger (current) use of anticoagulants Mitral stenosis Mitral valve insufficiency Osteoarthrosis Peripheral edema Reactive airway disease Surgical History H/O aortic root repair H/O aortic valve replacement H/O mitral valve repair H/O myomectomy History of aortic valve replacement with bioprosthetic valve History of bowel resection S/P VSD closure Family History Other Heart disease Social History Smoking Status: Former smoker Hx Alcohol Use: No Hx Substance Use: No Preferred Language: Tajik Communication Ability: Effective Beliefs That Will Affect Care: None marital status: Current Living Situation: Spouse current occupational status: disabled How many Children do You have: 2 Feels Safe at Home: Yes Safety Concerns: Feels Safe At This Time Assistive Devices: Glasses Review of Systems Review of Systems: All systems reviewed & are unremarkable except as noted in HPI & below Physical Exam Physical Exam: Temp Pulse Resp BP Pulse Ox 37.1 C 59 L 16 109/74 96 12/11/20 13:43 12/11/20 16:01 12/11/20 12:20 12/11/20 12:20 12/11/20 12:20 Constitutional: + ill appearing (Chronically ill in appearance); no acute distress Respiratory: normal respiratory effort, lungs clear to auscultation Cardiovascular: RRR, no murmur, no edema Gastrointestinal (Abdomen): normal bowel sounds, soft, nontender, no hepatosp lenomegaly Neurologic: PERRL, EOMI, accommodation nl, no face palsy, no dysarthria Results & Data ([facility]) Vital Signs (Past 12 Hours) Vital Signs Temp Pulse Pulse Resp BP Pulse Ox 12/11/20 13:43 37.1 C 12/11/20 12:20 37.5 C 78 16 109/74 96 12/11/20 09:38 62 12/11/20 07:52 37.1 C 65 18 118/77 94 Diagnostic Findings EKG performed 09/09/2020 reveals sinus rhythm at 60 bpm, left anterior fascicular block, age undetermined septal infarction pattern dating back to 2010, mild nonspecific lateral repolarization abnormalities,, which are new compared to an outpatient EKG performed 05/15/2020. Summary of outpatient transthoracic echocardiogram performed 05/30/2020: Moderate sized apical, septal, anteroseptal wall motion abnormality with hypokinesis to akinesis of the segments, LVEF 49%, bioprosthetic aortic valve with normal gradients. Borderline to mild mitral stenosis noted. Estimated pulmonary artery systolic pressure 28 mmHg, normal. Mild mitral regurgitation. Mild tricuspid regurgitation. (1) Anemia Anemia type: unspecified type Qualified Code(s): D64.9 - Anemia, unspecified
[2020-12-11] MEDS: WARFARIN SOD 4 MG TAB PO SCH (17:26)
[2020-12-11] MEDS: MONTELUKAST SODIUM 10 MG TABLET PO SCH (21:10)
[2020-12-11] MEDS: COLCHICINE 0.6 MG TAB PO SCH (21:10)
[2020-12-11] MEDS: PANTOprazole 40 MG TAB PO SCH (21:10)
[2020-12-11] MEDS: ATORVASTATIN 40 MG TAB PO SCH (21:10)
[2020-12-12 07:29] LABS: Eosinophils % (auto) 3.3 %; Hematocrit (blood only) 27.9 % (37-47); Hemoglobin 9.7 g/dL (12.0-16.0); Immature Granulocytes # (auto) 0.05 K/uL (0.00-0.02); Immature Granulocytes % (auto) 1.7 %; Lymphocytes # (auto) 0.93 K/uL (1.2-3.4); Lymphocytes % (auto) 30.7 %; Mean Corpuscular Hemoglobin 30.7 pg (25-34); Mean Corpuscular Hgb Conc 34.8 g/dL (32-36); Mean Corpuscular Volume 88.3 fL (80-100); Mean Platelet Volume 8.9 fL (7.4-10.4); Monocytes # (auto) 0.31 K/uL (0.11-0.59); Monocytes % (auto) 10.2 %; Neutrophils # (auto) 1.64 K/uL (1.4-6.5); Neutrophils % (auto) 54.1 %; Platelet Count 160 K/uL (130-400); RDW Coefficient of Variation 13.4 % (11.5-14.5); RDW Standard Deviation 43.6 fL (36.4-46.3); Red Blood Count 3.16 M/uL (4.2-5.4); White Blood Count 3.03 K/uL (4.8-10.8)
[2020-12-12 07:38] LABS: INR 3.4 (0.9-1.1); Prothrombin Time 31.4 Seconds (9.0-12.0)
[2020-12-12 07:59] LABS: BUN Creatinine Ratio 13.6 (10-20); Calcium 7.7 mg/dl (8.5-10.1); Creatinine Clr Calc Pharmacy 26.2 ml/min; Est GFR (Non-African American) 34.5 ml/min; Magnesium 1.7 mg/dl (1.8-2.4); Potassium 3.6 mmol/L (3.5-5.1)
[2020-12-12] MEDS: COLCHICINE 0.6 MG TAB PO SCH ×2 (08:49→21:16)
[2020-12-12] MEDS: CALCIUM 600MG + VIT D 400 IU TAB PO SCH (08:49)
[2020-12-12] MEDS: FLUTICASONE/VILANTEROL 100/25MCG 14 PUFFS/INHALER INH SCH (08:50)
[2020-12-12] MEDS: DULoxetine HCL 30 MG CAP PO SCH (08:50)
[2020-12-12] MEDS: GABAPENTIN 300 MG CAP PO SCH ×3 (08:51→21:16)
[2020-12-12] MEDS: lisinopril 20 MG TAB PO SCH (08:51)
[2020-12-12] MEDS: MAGNESIUM OXIDE 400 MG TAB PO SCH (08:52)
[2020-12-12] MEDS: METOPROLOL TARTRATE 50 MG TAB PO SCH ×2 (08:54→21:15)
[2020-12-12] MEDS: METOCLOPRAMIDE HCL 5 MG TABLET PO SCH ×2 (08:54→21:17)
[2020-12-12] MEDS: UMECLIDINIUM BROMIDE 62.5MCG/BLISTER 7 PUFFS/INHALER INH SCH (08:55)
[2020-12-12] MEDS: PANTOprazole 40 MG TAB PO SCH ×2 (08:55→21:15)
[2020-12-12] MEDS: TOPIRAMATE 25 MG TAB PO SCH ×2 (08:55→21:16)
[2020-12-12] MEDS: MULTIVITAMIN TAB PO SCH (08:55)
[2020-12-12] MEDS: VITAMIN B COMPLEX TAB PO SCH (08:56)
--- NOTE | 2020-12-12 12:40 | Cardiology Progress Note ---
Date of Service December 12, 2020 Assessment & Plan (1) Anemia: (2) Elevated INR: (3) History of aortic valve replacement with bioprosthetic valve: (4) Arteriosclerotic coronary artery disease: Plan: Resume Coumadin with hold for INR greater than 3.5. Patient states that she typically takes aspirin 81 mg 3 days/week on Mondays, Wednesdays and Fridays, therefore will resume. Her hemoglobin has remained stable. She denies any kenzie symptoms suggestive of angina or congestive heart failure, just generalized weakness. Her sodium is chronically low. Continue supportive care. Admission and Anticipated Discharge Date Admission Date: December 10, 2020 Subjective Patient seen in cardiology follow-up. She notes generalized tired feeling, denies any chest discomfort, denies shortness of breath. Oxygen saturation noted to be 94 to 99% on room air. She denies any ongoing concerns with diarrhea or blood per rectum. Protonix infusion has been discontinued. Coumadin reinitiated 12/11/2020. Review of Systems Review of Systems: All systems reviewed & are unremarkable except as noted in HPI & below Physical Exam Physical Exam: Temp Pulse Resp BP Pulse Ox 36.5 C 74 18 112/64 94 12/12/20 12:31 12/12/20 12:31 12/12/20 12:31 12/12/20 12:31 12/12/20 12:31 Constitutional: + thin; no acute distress Respiratory: normal respiratory effort, lungs clear to auscultation Cardiovascular: RRR, no murmur, no edema Neurologic: PERRL, EOMI, accommodation nl, no face palsy, no dysarthria Results & Data ([facility]) Vital Signs (Past 12 Hours) Vital Signs Temp Pulse Pulse Resp BP BP Pulse Ox 12/12/20 12:31 36.5 C 74 18 112/64 94 12/12/20 08:58 63 102/69 12/12/20 08:21 37.1 C 60 16 93/56 L 96 12/12/20 07:47 58 L 12/12/20 04:11 36.9 C 58 L 16 111/64 99 Laboratory Results Coagulation 12/12/20 Range/Units 07:04 PT 31.4 H (9.0-12.0) Seconds CBC 12/12/20 Range/Units 07:04 WBC 3.03 L (4.8-10.8) K/uL RBC 3.16 L (4.2-5.4) M/uL Hgb 9.7 L (12.0-16.0) g/dL Hct 27.9 L (37-47) % Plt Count 160 (130-400) K/uL Neut # (Auto) 1.64 (1.4-6.5) K/uL Lymph # (Auto) 0.93 L (1.2-3.4) K/uL [place] # (Auto) 0.31 (0.11-0.59) K/uL Eos # (Auto) 0.10 (0-0.5) K/uL Baso # (Auto) 0.00 (0-0.2) K/uL Comprehensive Metabolic Panel 12/12/20 Range/Units 07:04 Sodium 128 L (136-145) mmol/L Potassium 3.6 (3.5-5.1) mmol/L Chloride 96 L (98-107) mmol/L Carbon Dioxide 26 (21-32) mmol/L BUN 21 H (7-18) mg/dl Creatinine 1.55 H (0.6-1.2) mg/dl Glucose 87 (70-99) mg/dl Calcium 7.7 L (8.5-10.1) mg/dl Intake and Output 12/11/20 12/12/20 12/12/20 22:59 06:59 14:59 Intake Total 197.667 / 569.001 200 / 569.001 Output Total 400 / 850 Balance -202.333 / -280.999 200 / -280.999 Intake: IV 77.667 / 249.001 PANTOprazole 40 mg In Dextrose 77.667 / 249.001 5% 100 ml @ 8 MG/HR 20 mls/hr IV Q5H [facility] Rx#:[id number] Oral 120 / 320 200 / 320 Output: Urine 400 / 850 Other: Weight 55 kg (1) Anemia Anemia type: unspecified type Qualified Code(s): D64.9 - Anemia, unspecified
[2020-12-12] MEDS: SODIUM CHLORIDE 1 GM TABLET PO SCH (15:30)
[2020-12-12] MEDS: ASPIRIN 81 MG ECTAB PO SCH (15:30)
--- NOTE | 2020-12-12 16:28 | Hospitalist Progress Note ---
Date of Service December 12, 2020 Assessment & Plan (1) Fatigue: Plan: Likely multifactorial releated to recent diarrhea, potential GI blood loss, worsening anemia, poor oral intake resulting in dehydration No more diarrhea and no more blood in the stool We will get PT and OT evaluation and may need placement She has been vaccinated for COVID-19 virus Noted to have positive COVID but no evidence of hypoxia at present - will continue to monitor, isolation precautions ordered No cough, shortness of breath, nausea and vomiting or desaturation Does not qualify for any treatment for COVID-19 infection No respiratory symptoms of Covid and no GI symptoms (2) Anemia: Plan: Monitor for stability due to concern for ongoing blood loss - will hold transfusion for now but if worsening anemia, may need to consider in view of pt's significant cardiac history Appreciate GI input and recommendation No more GI bleed and or melena Endoscopy as an outpatient-hemoglobin remains stable (3) Melena: Plan: Heme positive black stool in ED Normal melena and or diarrhea We will change the Protonix to p.o. twice daily Normal melena infection no bowel movement since admission (4) Pulmonary edema: (5) Acute kidney injury superimposed on CKD: Plan: Likely due to dehydration. Baseline creatinine as outpatient is 1.4-1.5 We will advised to drink reasonable amount of fluid (6) Hyponatremia: Plan: Outpatient labs reviewed - appears to be chronic with baselined 125-127 History of chronic hyponatremia We will monitor in the hospital We will start sodium tablet 1 g daily and monitor PRP (7) nursing home (current) use of anticoagulants: Plan: Goal INR is 2.5-3.5. Pt follows with anticoagulation clinic through [facility] We will restart Coumadin (8) History of aortic valve replacement with bioprosthetic valve: Plan: Denies any cardiac symptoms Awaiting cardiology evaluation (9) Dyslipidemia: (10) Arteriosclerotic coronary artery disease: (11) COPD, mild: Plan: No acute exacerbation (12) Anxiety: (13) Esophageal reflux: (14) Gastroparesis: Plan: Code Status: Full Code DVT prophylaxis: SCDs - AC On hold due to potential GI bleed Admission and Anticipated Discharge Date Admission Date: December 10, 2020 Subjective 12/11/2020 The patient was seen and examined in medical telemetry unit and in the Covid room She does not have any Covid related symptoms Complains of generalized weakness but no chest pain, palpitation or shortness of breath 12/12/2020 The patient was seen and examined in medical telemetry unit and in the Covid room She has been feeling much better with improvement of weakness and tiredness She does not have any Covid associated symptoms except weakness Review of Systems Review of Systems: All systems reviewed and are unremarkable except as noted below Constitutional: General weakness Eyes: no diplopia Ear, Nose, Mouth, Throat: + epistaxis (2-3 episodes in past 2 weeks) and + sore throat; no dysphagia Respiratory: + cough; no dyspnea on exertion, no hemoptysis and no wheezing Cardiovascular: + lightheadedness; no chest pain, no palpitations, no syncope and no edema Gastrointestinal: as per Subjective / HPI Genitourinary: no dysuria, no urinary frequency and no hematuria Musculoskeletal: + muscle weakness; no back pain and no neck pain Integumentary: + unusual bruising; no yellowing of the skin Neurologic: + unsteadiness, + falls, + generalized weakness, + headache(s) and + memory loss Psychiatric: + anxiety; no confusion and no hallucinations Physical Exam Physical Exam: Lying in bed comfortably Constitutional: + ill appearing and average body habitus Eyes: PERRL, conjunctivae normal, anicteric sclerae ENMT: external ear and nose normal, oropharynx normal Neck: trachea midline, no thyromegaly Respiratory: no respiratory distress Auscultation: lungs clear to auscultation bilaterally Cardiovascular: Rate/Rhythm: regular rate, regular rhythm and + bradycardic Heart Sounds: normal S1, normal S2 and + murmur (2/6 ESM over precordium) Gastrointestinal (Abdomen): Inspection/Auscultation: normal bowel sounds; abdomen not distended Percussion/Palpation: abdomen soft; abdomen nontender Musculoskeletal: No acute arthritis in any joint Neurologic: Alert, awake and oriented x3 Results & Data Results & Data ([facility]) Vital Signs (Past 12 Hours) Vital Signs Temp Pulse Pulse Resp BP Pulse Ox 12/12/20 15:42 63 12/12/20 12:31 36.5 C 74 18 112/64 94 12/12/20 08:58 63 102/69 12/12/20 08:21 37.1 C 60 16 93/56 L 96 12/12/20 07:47 58 L Laboratory Results Short CBC 12/12/20 Range/Units 07:04 WBC 3.03 L (4.8-10.8) K/uL Hgb 9.7 L (12.0-16.0) g/dL Hct 27.9 L (37-47) % Plt Count 160 (130-400) K/uL BMP 12/12/20 07:04 Sodium 128 L Potassium 3.6 Chloride 96 L Carbon Dioxide 26 BUN 21 H Creatinine 1.55 H Glucose 87 Calcium 7.7 L Medications Administered Current Inpatient Medications Acetaminophen (Acetaminophen 325 Mg Tab) 650 mg PO Q4H PRN PRN Reason: Pain or Fever Stop: 01/09/21 16:57 Last Admin: 12/11/20 12:26 Dose: 650 mg Documented by: Albuterol (Albuterol Hfa 8 Gm Inhaler) 2 puffs INH QIDR PRN PRN Reason: shortness of breath or wheezin Stop: 01/10/21 15:50 Aspirin (Aspirin 81 Mg Ectab) 81 mg PO MoWeFr@0900 ERI Stop: 01/11/21 12:59 Last Admin: 12/12/20 15:30 Dose: 81 mg Documented by: Atorvastatin Calcium (Atorvastatin 40 Mg Tab) 40 mg PO HS ERI Stop: 01/09/21 20:59 Last Admin: 12/11/20 21:10 Dose: 40 mg Documented by: Clonazepam (Clonazepam 0.5 Mg Tab) 0.5 mg PO TID PRN PRN Reason: Anxiety Stop: 01/09/21 16:12 Colchicine (Colchicine 0.6 Mg Tab) 0.6 mg PO BID ERI Stop: 01/10/21 20:59 Last Admin: 12/12/20 08:49 Dose: 0.6 mg Documented by: Duloxetine HCl (Duloxetine Hcl 30 Mg Cap) 90 mg PO DAILY ERI Stop: 01/10/21 08:59 Last Admin: 12/12/20 08:50 Dose: 90 mg Documented by: Fluticasone/Vilanterol (Fluticasone/Vilanterol 100/25mcg 14 Puffs/Inhaler) 1 puffs INH DAILY ERI Stop: 01/10/21 08:59 Last Admin: 12/12/20 08:50 Dose: 1 puffs Documented by: Gabapentin (Gabapentin 300 Mg Cap) 300 mg PO TID ERI Stop: 01/09/21 20:59 Last Admin: 12/12/20 15:29 Dose: 300 mg Documented by: Lisinopril (Lisinopril 20 Mg Tab) 20 mg PO DAILY ERI Stop: 01/11/21 08:59 Last Admin: 12/12/20 08:51 Dose: 20 mg Documented by: Loratadine (Loratadine 10 Mg Tab) 10 mg PO DAILY PRN PRN Reason: Allergy Symptoms Stop: 01/10/21 15:50 Magnesium Oxide (Magnesium Oxide 400 Mg Tab) 400 mg PO DAILY ERI Stop: 01/11/21 08:59 Last Admin: 12/12/20 08:52 Dose: 400 mg Documented by: Metoclopramide HCl (Metoclopramide Hcl 5 Mg Tablet) 5 mg PO BID [facility] Stop: 01/09/21 20:59 Last Admin: 12/12/20 08:54 Dose: 5 mg Documented by: Metoprolol Tartrate (Metoprolol Tartrate 50 Mg Tab) 50 mg PO BID [facility] Stop: 01/09/21 20:59 Last Admin: 12/12/20 08:54 Dose: 50 mg Documented by: Montelukast Sodium (Montelukast Sodium 10 Mg Tablet) 10 mg PO HS [facility] Stop: 01/09/21 20:59 Last Admin: 12/11/20 21:10 Dose: 10 mg Documented by: Multivitamins (Multivitamin Tab) 1 tab PO DAILY [facility] Stop: 01/11/21 08:59 Last Admin: 12/12/20 08:55 Dose: 1 tab Documented by: Multivitamins/Minerals (Calcium 600mg + Vit D 400 Iu Tab) 2 tab PO DAILY ERI Stop: 01/11/21 08:59 Last Admin: 12/12/20 08:49 Dose: 2 tab Documented by: Nitroglycerin (Nitroglycerin Sl 0.4 Mg/Tab Tab) 0.4 mg SL UD PRN PRN Reason: Chest Pain Stop: 01/09/21 16:57 Nitroglycerin (Nitroglycerin Sl 0.4 Mg/Tab Tab) 0.4 mg SL Q5M PRN PRN Reason: chest pain Stop: 01/10/21 15:50 Ondansetron HCl (Ondansetron 4 Mg Od Tab) 4 mg PO Q8H PRN PRN Reason: Nausea And Vomiting Stop: 01/09/21 16:12 Pantoprazole Sodium (Pantoprazole 40 Mg Tab) 40 mg PO BID [facility] Stop: 01/10/21 20:59 Last Admin: 12/12/20 08:55 Dose: 40 mg Documented by: Sodium Chloride (Sodium Chloride 1 Gm Tablet) 1 gm PO DAILY [facility] Stop: 01/11/21 14:44 Last Admin: 12/12/20 15:30 Dose: 1 gm Documented by: Topiramate (Topiramate 25 Mg Tab) 25 mg PO BID [facility] Stop: 01/09/21 20:59 Last Admin: 12/12/20 08:55 Dose: 25 mg Documented by: Umeclidinium [place] (Umeclidinium [place] 62.5mcg/Blister 7 Puffs/Inhaler) 1 puffs INH DAILY [facility] Stop: 01/10/21 08:59 Last Admin: 12/12/20 08:55 Dose: 1 puffs Documented by: Vitamin B Complex (Vitamin B Complex Tab) 1 tab PO DAILY [facility] Stop: 01/11/21 08:59 Last Admin: 12/12/20 08:56 Dose: 1 tab Documented by: Warfarin Sodium (Warfarin Sod 2 Mg Tab) 2 mg PO Tu@1600 [facility] Stop: 01/15/21 15:59 Warfarin Sodium (Warfarin Sod 4 Mg Tab) 4 mg PO SuMoWeThFrSa@1600 [facility] Stop: 01/10/21 16:59 Last Admin: 12/11/20 17:26 Dose: 4 mg Documented by:
[2020-12-12] MEDS: WARFARIN SOD 4 MG TAB PO SCH (18:21)
[2020-12-12] MEDS: ATORVASTATIN 40 MG TAB PO SCH (21:16)
[2020-12-12] MEDS: MONTELUKAST SODIUM 10 MG TABLET PO SCH (21:16)
--- NOTE | 2020-12-13 08:22 | Ultrasound Report ---
BILATERAL LOWER EXTREMITY VENOUS DOPPLER HISTORY: Lower extremity swelling Rule out DVT COMPARISON STUDY: None. FINDINGS: There is normal compressibility, flow, and augmentation within the bilateral lower extremit y deep venous systems. IMPRESSION: No DVT within the right or left lower extremity. ACT 112: Negative or not required by law. Electronically signed by: Joel Guardado M.D. 12/13/2020 8:21 AM
[2020-12-13] MEDS: FLUTICASONE/VILANTEROL 100/25MCG 14 PUFFS/INHALER INH SCH (08:34)
[2020-12-13] MEDS: UMECLIDINIUM BROMIDE 62.5MCG/BLISTER 7 PUFFS/INHALER INH SCH (08:34)
[2020-12-13] MEDS: CALCIUM 600MG + VIT D 400 IU TAB PO SCH (08:34)
[2020-12-13] MEDS: COLCHICINE 0.6 MG TAB PO SCH ×2 (08:35→21:26)
[2020-12-13] MEDS: DULoxetine HCL 30 MG CAP PO SCH (08:35)
[2020-12-13] MEDS: GABAPENTIN 300 MG CAP PO SCH ×3 (08:35→21:26)
[2020-12-13] MEDS: lisinopril 20 MG TAB PO SCH (08:35)
[2020-12-13] MEDS: MAGNESIUM OXIDE 400 MG TAB PO SCH (08:36)
[2020-12-13] MEDS: METOPROLOL TARTRATE 50 MG TAB PO SCH ×2 (08:36→21:26)
[2020-12-13] MEDS: METOCLOPRAMIDE HCL 5 MG TABLET PO SCH ×2 (08:36→21:26)
[2020-12-13] MEDS: PANTOprazole 40 MG TAB PO SCH ×2 (08:37→21:26)
[2020-12-13] MEDS: VITAMIN B COMPLEX TAB PO SCH (08:37)
[2020-12-13] MEDS: SODIUM CHLORIDE 1 GM TABLET PO SCH (08:37)
[2020-12-13] MEDS: MULTIVITAMIN TAB PO SCH (08:37)
[2020-12-13] MEDS: TOPIRAMATE 25 MG TAB PO SCH ×2 (08:37→21:26)
[2020-12-13 09:19] LABS: Eosinophils # (auto) 0.09 K/uL (0-0.5); Eosinophils % (auto) 2.3 %; Hematocrit (blood only) 28.5 % (37-47); Immature Granulocytes # (auto) 0.05 K/uL (0.00-0.02); Immature Granulocytes % (auto) 1.3 %; Lymphocytes # (auto) 0.85 K/uL (1.2-3.4); Lymphocytes % (auto) 21.5 %; Mean Corpuscular Hemoglobin 30.4 pg (25-34); Mean Corpuscular Hgb Conc 35.1 g/dL (32-36); Mean Corpuscular Volume 86.6 fL (80-100); Monocytes # (auto) 0.39 K/uL (0.11-0.59); Monocytes % (auto) 9.9 %; Neutrophils # (auto) 2.57 K/uL (1.4-6.5); Platelet Count 215 K/uL (130-400); RDW Coefficient of Variation 13.4 % (11.5-14.5); RDW Standard Deviation 43.1 fL (36.4-46.3); Red Blood Count 3.29 M/uL (4.2-5.4); White Blood Count 3.95 K/uL (4.8-10.8)
[2020-12-13 09:37] LABS: INR 3.8 (0.9-1.1); Prothrombin Time 34.3 Seconds (9.0-12.0)
[2020-12-13 09:51] LABS: BUN Creatinine Ratio 14.7 (10-20); Calcium 8.5 mg/dl (8.5-10.1); Creatinine Clr Calc Pharmacy 30.8 ml/min; Est GFR (African American) 49.1 ml/min; Est GFR (Non-African American) 42.3 ml/min; Potassium 3.6 mmol/L (3.5-5.1)
--- NOTE | 2020-12-13 15:14 | Hospitalist Progress Note ---
Date of Service December 13, 2020 Assessment & Plan (1) Fatigue: Plan: Likely multifactorial releated to recent diarrhea, potential GI blood loss, worsening anemia, poor oral intake resulting in dehydration No more diarrhea and no more blood in the stool We will get PT and OT evaluation and may need placement Getting better gradually She has been vaccinated for COVID-19 virus Noted to have positive COVID but no evidence of hypoxia at present - will continue to monitor, isolation precautions ordered No cough, shortness of breath, nausea and vomiting or desaturation Does not qualify for any treatment for COVID-19 infection No respiratory symptoms of Covid and no GI symptoms (2) Anemia: Plan: Monitor for stability due to concern for ongoing blood loss - will hold transfusion for now but if worsening anemia, may need to consider in view of pt's significant cardiac history Appreciate GI input and recommendation No more GI bleed and or melena Endoscopy as an outpatient-hemoglobin remains stable (3) Melena: Plan: Heme positive black stool in ED Normal melena and or diarrhea We will change the Protonix to p.o. twice daily Normal melena infection no bowel movement since admission (4) Pulmonary edema: (5) Acute kidney injury superimposed on CKD: Plan: Likely due to dehydration. Baseline creatinine as outpatient is 1.4-1.5 We will advised to drink reasonable amount of fluid (6) Hyponatremia: Plan: Outpatient labs reviewed - appears to be chronic with baselined 125-127 History of chronic hyponatremia We will monitor in the hospital We will start sodium tablet 1 g daily and monitor PRP Sodium is 130 on 12/13/2020 (7) [facility] (current) use of anticoagulants: Plan: Goal INR is 2.5-3.5. Pt follows with anticoagulation clinic through [facility] We will restart Coumadin INR-3.8 today (8) History of aortic valve replacement with bioprosthetic valve: Plan: Denies any cardiac symptoms Awaiting cardiology evaluation (9) Dyslipidemia: (10) Arteriosclerotic coronary artery disease: (11) COPD, mild: Plan: No acute exacerbation (12) Anxiety: (13) Esophageal reflux: (14) Gastroparesis: Plan: Code Status: Full Code DVT prophylaxis: SCDs - AC On hold due to potential GI bleed Admission and Anticipated Discharge Date Admission Date: December 10, 2020 Subjective 12/11/2020 The patient was seen and examined in medical telemetry unit and in the Covid room She does not have any Covid related symptoms Complains of generalized weakness but no chest pain, palpitation or shortness of breath 12/12/2020 The patient was seen and examined in medical telemetry unit and in the Covid r oom She has been feeling much better with improvement of weakness and tiredness She does not have any Covid associated symptoms except weakness 12/13/2020 The patient was seen and examined in medical telemetry unit and in the Covid room She remains weak but getting better Denies any respiratory symptoms Review of Systems Review of Systems: All systems reviewed and are unremarkable except as noted below Constitutional: General weakness Eyes: no diplopia Ear, Nose, Mouth, Throat: + epistaxis (2-3 episodes in past 2 weeks) and + sore throat; no dysphagia Respiratory: + cough; no dyspnea on exertion, no hemoptysis and no wheezing Cardiovascular: + lightheadedness; no chest pain, no palpitations, no syncope and no edema Gastrointestinal: as per Subjective / HPI Genitourinary: no dysuria, no urinary frequency and no hematuria Musculoskeletal: + muscle weakness; no back pain and no neck pain Integumentary: + unusual bruising; no yellowing of the skin Neurologic: + unsteadiness, + falls, + generalized weakness, + headache(s) and + memory loss Psychiatric: + anxiety; no confusion and no hallucinations Physical Exam Physical Exam: Lying in bed comfortably Constitutional: + ill appearing and average body habitus Eyes: PERRL, conjunctivae normal, anicteric sclerae ENMT: external ear and nose normal, oropharynx normal Neck: trachea midline, no thyromegaly Respiratory: no respiratory distress Auscultation: lungs clear to auscultation bilaterally Cardiovascular: Rate/Rhythm: regular rate, regular rhythm and + bradycardic Heart Sounds: normal S1, normal S2 and + murmur (2/6 ESM over precordium) Gastrointestinal (Abdomen): Inspection/Auscultation: normal bowel sounds; abdomen not distended Percussion/Palpation: abdomen soft; abdomen nontender Musculoskeletal: With arthritis in any joint Neurologic: Alert, awake and oriented x3. Generally weak but no focal neuro deficit Results & Data Results & Data ([facility]) Vital Signs (Past 12 Hours) Vital Signs Temp Pulse Pulse Resp BP BP Pulse Ox 12/13/20 13:00 37.3 C 59 L 18 97/61 L 96 12/13/20 11:25 61 12/13/20 07:49 37.0 C 54 L 20 107/70 93 12/13/20 04:00 37.1 C 60 18 101/61 97 12/13/20 03:32 66 Laboratory Results Short CBC 12/13/20 Range/Units 08:34 WBC 3.95 L (4.8-10.8) K/uL Hgb 10.0 L (12.0-16.0) g/dL Hct 28.5 L (37-47) % Plt Count 215 (130-400) K/uL BMP 12/13/20 08:34 Sodium 130 L Potassium 3.6 Chloride 97 L Carbon Dioxide 25 BUN 19 H Creatinine 1.31 H Glucose 98 Calcium 8.5 Medications Administered Current Inpatient Medications Acetaminophen (Acetaminophen 325 Mg Tab) 650 mg PO Q4H PRN PRN Reason: Pain or Fever Stop: 01/09/21 16:57 Last Admin: 12/11/20 12:26 Dose: 650 mg Documented by: Albuterol (Albuterol Hfa 8 Gm Inhaler) 2 puffs INH QIDR PRN PRN Reason: shortness of breath or wheezin Stop: 01/10/21 15:50 Aspirin (Aspirin 81 Mg Ectab) 81 mg PO MoWeFr@0900 [facility] Stop: 01/11/21 12:59 Last Admin: 12/12/20 15:30 Dose: 81 mg Documented by: Atorvastatin Calcium (Atorvastatin 40 Mg Tab) 40 mg PO HS [facility] Stop: 01/09/21 20:59 Last Admin: 12/12/20 21:16 Dose: 40 mg Documented by: Clonazepam (Clonazepam 0.5 Mg Tab) 0.5 mg PO TID PRN PRN Reason: Anxiety Stop: 01/09/21 16:12 Colchicine (Colchicine 0.6 Mg Tab) 0.6 mg PO BID [facility] Stop: 01/10/21 20:59 Last Admin: 12/13/20 08:35 Dose: 0.6 mg Documented by: Duloxetine HCl (Duloxetine Hcl 30 Mg Cap) 90 mg PO DAILY [facility] Stop: 01/10/21 08:59 Last Admin: 12/13/20 08:35 Dose: 90 mg Documented by: Fluticasone/Vilanterol (Fluticasone/Vilanterol 100/25mcg 14 Puffs/Inhaler) 1 puffs INH DAILY ERI Stop: 01/10/21 08:59 Last Admin: 12/13/20 08:34 Dose: 1 puffs Documented by: Gabapentin (Gabapentin 300 Mg Cap) 300 mg PO TID ERI Stop: 01/09/21 20:59 Last Admin: 12/13/20 08:35 Dose: 300 mg Documented by: Lisinopril (Lisinopril 20 Mg Tab) 20 mg PO DAILY ERI Stop: 01/11/21 08:59 Last Admin: 12/13/20 08:35 Dose: 20 mg Documented by: Loratadine (Loratadine 10 Mg Tab) 10 mg PO DAILY PRN PRN Reason: Allergy Symptoms Stop: 01/10/21 15:50 Magnesium Oxide (Magnesium Oxide 400 Mg Tab) 400 mg PO DAILY ERI Stop: 01/11/21 08:59 Last Admin: 12/13/20 08:36 Dose: 400 mg Documented by: Metoclopramide HCl (Metoclopramide Hcl 5 Mg Tablet) 5 mg PO BID ERI Stop: 01/09/21 20:59 Last Admin: 12/13/20 08:36 Dose: 5 mg Documented by: Metoprolol Tartrate (Metoprolol Tartrate 50 Mg Tab) 50 mg PO BID ERI Stop: 01/09/21 20:59 Last Admin: 12/13/20 08:36 Dose: 50 mg Documented by: Montelukast Sodium (Montelukast Sodium 10 Mg Tablet) 10 mg PO HS ERI Stop: 01/09/21 20:59 Last Admin: 12/12/20 21:16 Dose: 10 mg Documented by: Multivitamins (Multivitamin Tab) 1 tab PO DAILY ERI Stop: 01/11/21 08:59 Last Admin: 12/13/20 08:37 Dose: 1 tab Documented by: Multivitamins/Minerals (Calcium 600mg + Vit D 400 Iu Tab) 2 tab PO DAILY ERI Stop: 01/11/21 08:59 Last Admin: 12/13/20 08:34 Dose: 2 tab Documented by: Nitroglycerin (Nitroglycerin Sl 0.4 Mg/Tab Tab) 0.4 mg SL UD PRN PRN Reason: Chest Pain Stop: 01/09/21 16:57 Nitroglycerin (Nitroglycerin Sl 0.4 Mg/Tab Tab) 0.4 mg SL Q5M PRN PRN Reason: chest pain Stop: 01/10/21 15:50 Ondansetron HCl (Ondansetron 4 Mg Od Tab) 4 mg PO Q8H PRN PRN Reason: Nausea And Vomiting Stop: 01/09/21 16:12 Pantoprazole Sodium (Pantoprazole 40 Mg Tab) 40 mg PO BID [facility] Stop: 01/10/21 20:59 Last Admin: 12/13/20 08:37 Dose: 40 mg Documented by: Sodium Chloride (Sodium Chloride 1 Gm Tablet) 1 gm PO DAILY [facility] Stop: 01/11/21 14:44 Last Admin: 12/13/20 08:37 Dose: 1 gm Documented by: Topiramate (Topiramate 25 Mg Tab) 25 mg PO BID [facility] Stop: 01/09/21 20:59 Last Admin: 12/13/20 08:37 Dose: 25 mg Documented by: Umeclidinium [place] (Umeclidinium [place] 62.5mcg/Blister 7 Puffs/Inhaler) 1 puffs INH DAILY [facility] Stop: 01/10/21 08:59 Last Admin: 12/13/20 08:34 Dose: 1 puffs Documented by: Vitamin B Complex (Vitamin B Complex Tab) 1 tab PO DAILY [facility] Stop: 01/11/21 08:59 Last Admin: 12/13/20 08:37 Dose: 1 tab Documented by: Warfarin Sodium (Warfarin Sod 2 Mg Tab) 2 mg PO Tu@1600 [facility] Stop: 01/15/21 15:59 Warfarin Sodium (Warfarin Sod 4 Mg Tab) 4 mg PO SuMoWeThFrSa@1600 [facility] Stop: 01/10/21 16:59 Last Admin: 12/12/20 18:21 Dose: 4 mg Documented by:
[2020-12-13] MEDS: WARFARIN SOD 4 MG TAB PO SCH (17:25)
[2020-12-13] MEDS: ATORVASTATIN 40 MG TAB PO SCH (21:26)
[2020-12-13] MEDS: MONTELUKAST SODIUM 10 MG TABLET PO SCH (21:26)
[2020-12-14 08:49] LABS: INR 5.2 (0.9-1.1); Prothrombin Time 46.6 Seconds (9.0-12.0)
[2020-12-14 08:51] LABS: BUN Creatinine Ratio 13.1 (10-20); Calcium 8.4 mg/dl (8.5-10.1); Creatinine Clr Calc Pharmacy 29.9 ml/min; Est GFR (African American) 46.5 ml/min; Est GFR (Non-African American) 40.1 ml/min; Potassium 3.1 mmol/L (3.5-5.1)
[2020-12-14] MEDS: FLUTICASONE/VILANTEROL 100/25MCG 14 PUFFS/INHALER INH SCH (09:55)
[2020-12-14] MEDS: UMECLIDINIUM BROMIDE 62.5MCG/BLISTER 7 PUFFS/INHALER INH SCH (09:55)
[2020-12-14] MEDS: GABAPENTIN 300 MG CAP PO SCH ×3 (09:56→21:57)
[2020-12-14] MEDS: CALCIUM 600MG + VIT D 400 IU TAB PO SCH (09:56)
[2020-12-14] MEDS: COLCHICINE 0.6 MG TAB PO SCH ×2 (09:56→21:58)
[2020-12-14] MEDS: DULoxetine HCL 30 MG CAP PO SCH (09:56)
[2020-12-14] MEDS: lisinopril 20 MG TAB PO SCH (09:57)
[2020-12-14] MEDS: METOCLOPRAMIDE HCL 5 MG TABLET PO SCH ×2 (09:57→21:58)
[2020-12-14] MEDS: MAGNESIUM OXIDE 400 MG TAB PO SCH (09:57)
[2020-12-14] MEDS: VITAMIN B COMPLEX TAB PO SCH (09:59)
[2020-12-14] MEDS: METOPROLOL TARTRATE 50 MG TAB PO SCH ×2 (09:59→21:57)
[2020-12-14] MEDS: PANTOprazole 40 MG TAB PO SCH ×2 (09:59→21:59)
[2020-12-14] MEDS: SODIUM CHLORIDE 1 GM TABLET PO SCH (09:59)
[2020-12-14] MEDS: MULTIVITAMIN TAB PO SCH (09:59)
[2020-12-14] MEDS: TOPIRAMATE 25 MG TAB PO SCH ×2 (09:59→21:58)
[2020-12-14] MEDS: POTASSIUM CHLORIDE / WTR 10 MEQ/100 ML PLCT IV SCH (12:06)
[2020-12-14] MEDS ORDERED: ALUMINUM/MAGNESIUM SUSP 30 ML UDC PO PRN (12:57)
--- NOTE | 2020-12-14 15:43 | Hospitalist Progress Note ---
Date of Service December 14, 2020 Assessment & Plan (1) Fatigue: Plan: Likely multifactorial releated to recent diarrhea, potential GI blood loss, worsening anemia, poor oral intake resulting in dehydration No more diarrhea and no more blood in the stool We will get PT and OT evaluation and may need placement Getting better gradually She has been vaccinated for COVID-19 virus Noted to have positive COVID but no evidence of hypoxia at present - will continue to monitor, isolation precautions ordered No cough, shortness of breath, nausea and vomiting or desaturation Does not qualify for any treatment for COVID-19 infection No respiratory symptoms of Covid and no GI symptoms Dyspepsia No vomiting Has been on PPI Will add Mylanta/Maalox as needed (2) Anemia: Plan: Monitor for stability due to concern for ongoing blood loss - will hold transfusion for now but if worsening anemia, may need to consider in view of pt's significant cardiac history Appreciate GI input and recommendation No more GI bleed and or melena Endoscopy as an outpatient-hemoglobin remains stable (3) Melena: Plan: Heme positive black stool in ED Normal melena and or diarrhea We will change the Protonix to p.o. twice daily No more melena and no bowel movement since admission (4) Pulmonary edema: (5) Acute kidney injury superimposed on CKD: Plan: Likely due to dehydration. Baseline creatinine as outpatient is 1.4-1.5 We will advised to drink reasonable amount of fluid Remains stable (6) Hyponatremia: Plan: Outpatient labs reviewed - appears to be chronic with baselined 125-127 History of chronic hyponatremia We will monitor in the hospital We will start sodium tablet 1 g daily and monitor PRP Sodium is 130 on 12/13/2020 (7) correction (current) use of anticoagulants: Plan: Goal INR is 2.5-3.5. Pt follows with anticoagulation clinic through [facility] We will restart Coumadin INR-3.8 today (8) History of aortic valve replacement with bioprosthetic valve: Plan: Denies any cardiac symptoms Awaiting cardiology evaluation (9) Dyslipidemia: (10) Arteriosclerotic coronary artery disease: (11) COPD, mild: Plan: No acute exacerbation (12) Anxiety: (13) Esophageal reflux: (14) Gastroparesis: Plan: Code Status: Full Code DVT prophylaxis: SCDs - AC On hold due to potential GI bleed Admission and Anticipated Discharge Date Admission Date: December 10, 2020 Subjective 12/11/2020 The patient was seen and examined in medical telemetry unit and in the Covid room She does not have any Covid related symptoms Complains of generalized weakness but no chest pain, palpitation or shortness of breath 12/12/2020 The patient was seen and examined in medical telemetry unit and in the Covid room She has been feeling much better with improvement of weakness and tiredness She does not have any Covid associated symptoms except weakness 12/13/2020 The patient was seen and examined in medical telemetry unit and in the Covid room She remains weak but getting better Denies any respiratory symptoms 12/14/2020 The patient was seen and examined in medical telemetry unit and in Covid room She has been complaining of dyspepsia Otherwise denies any symptoms Review of Systems Review of Systems: All systems reviewed and are unremarkable except as noted below Gastrointestinal: Dyspepsia Physical Exam Physical Exam: Lying in bed comfortably Constitutional: + ill appearing and average body habitus Eyes: PERRL, conjunctivae normal, anicteric sclerae ENMT: external ear and nose normal, oropharynx normal Neck: trachea midline, no thyromegaly Respiratory: no respiratory distress Auscultation: lungs clear to auscultation bilaterally Cardiovascular: Rate/Rhythm: regular rate, regular rhythm and + bradycardic Heart Sounds: normal S1, normal S2 and + murmur (2/6 ESM over precordium) Gastrointestinal (Abdomen): Inspection/Auscultation: normal bowel sounds; abdomen not distended Percussion/Palpation: abdomen soft; abdomen nontender Musculoskeletal: No acute arthritis in any joint Neurologic: Alert, awake and oriented x3. Generally weak Results & Data Results & Data ([facility]) Vital Signs (Past 12 Hours) Vital Signs Temp Pulse Pulse Resp BP BP Pulse Ox 12/14/20 15:09 37.2 C 68 18 92/63 L 96 12/14/20 11:00 37.3 C 70 18 86/54 L 97 12/14/20 10:00 88 94/63 L 12/14/20 08:00 37.0 C 73 16 93/61 L 92 12/14/20 07:44 65 12/14/20 04:00 37.1 C 66 18 102/63 92 Laboratory Results [facility] 12/14/20 07:46 Sodium 130 L Potassium 3.1 L Chloride 96 L Carbon Dioxide 22 BUN 18 Creatinine 1.37 H Glucose 106 H Calcium 8.4 L Medications Administered Current Inpatient Medications Acetaminophen (Acetaminophen 325 Mg Tab) 650 mg PO Q4H PRN PRN Reason: Pain or Fever Stop: 01/09/21 16:57 Last Admin: 12/11/20 12:26 Dose: 650 mg Documented by: Al Hydrox/Mg Hydrox/Simethicone (Aluminum/Magnesium Susp 30 Ml Udc) 15 ml PO Q6H PRN PRN Reason: Dyspepsia Stop: 01/13/21 12:56 Albuterol (Albuterol Hfa 8 Gm Inhaler) 2 puffs INH QIDR PRN PRN Reason: shortness of breath or wheezin Stop: 01/10/21 15:50 Aspirin (Aspirin 81 Mg Ectab) 81 mg PO MoWeFr@0900 [facility] Stop: 01/11/21 12:59 Last Admin: 12/12/20 15:30 Dose: 81 mg Documented by: Atorvastatin Calcium (Atorvastatin 40 Mg Tab) 40 mg PO HS ERI Stop: 01/09/21 20:59 Last Admin: 12/13/20 21:26 Dose: 40 mg Documented by: Clonazepam (Clonazepam 0.5 Mg Tab) 0.5 mg PO TID PRN PRN Reason: Anxiety Stop: 01/09/21 16:12 Colchicine (Colchicine 0.6 Mg Tab) 0.6 mg PO BID ERI Stop: 01/10/21 20:59 Last Admin: 12/14/20 09:56 Dose: 0.6 mg Documented by: Duloxetine HCl (Duloxetine Hcl 30 Mg Cap) 90 mg PO DAILY ERI Stop: 01/10/21 08:59 Last Admin: 12/14/20 09:56 Dose: 90 mg Documented by: Fluticasone/Vilanterol (Fluticasone/Vilanterol 100/25mcg 14 Puffs/Inhaler) 1 puffs INH DAILY ERI Stop: 01/10/21 08:59 Last Admin: 12/14/20 09:55 Dose: 1 puffs Documented by: Gabapentin (Gabapentin 300 Mg Cap) 300 mg PO TID ERI Stop: 01/09/21 20:59 Last Admin: 12/14/20 15:09 Dose: 300 mg Documented by: Lisinopril (Lisinopril 20 Mg Tab) 20 mg PO DAILY ERI Stop: 01/11/21 08:59 Last Admin: 12/14/20 09:57 Dose: 20 mg Documented by: Loratadine (Loratadine 10 Mg Tab) 10 mg PO DAILY PRN PRN Reason: Allergy Symptoms Stop: 01/10/21 15:50 Magnesium Oxide (Magnesium Oxide 400 Mg Tab) 400 mg PO DAILY ERI Stop: 01/11/21 08:59 Last Admin: 12/14/20 09:57 Dose: 400 mg Documented by: Metoclopramide HCl (Metoclopramide Hcl 5 Mg Tablet) 5 mg PO BID ERI Stop: 01/09/21 20:59 Last Admin: 12/14/20 09:57 Dose: 5 mg Documented by: Metoprolol Tartrate (Metoprolol Tartrate 50 Mg Tab) 50 mg PO BID ERI Stop: 01/09/21 20:59 Last Admin: 12/14/20 09:59 Dose: Not Given Documented by: Montelukast Sodium (Montelukast Sodium 10 Mg Tablet) 10 mg PO HS ERI Stop: 01/09/21 20:59 Last Admin: 12/13/20 21:26 Dose: 10 mg Documented by: Multivitamins (Multivitamin Tab) 1 tab PO DAILY ERI Stop: 01/11/21 08:59 Last Admin: 12/14/20 09:59 Dose: 1 tab Documented by: Multivitamins/Minerals (Calcium 600mg + Vit D 400 Iu Tab) 2 tab PO DAILY ERI Stop: 01/11/21 08:59 Last Admin: 12/14/20 09:56 Dose: 2 tab Documented by: Nitroglycerin (Nitroglycerin Sl 0.4 Mg/Tab Tab) 0.4 mg SL UD PRN PRN Reason: Chest Pain Stop: 01/09/21 16:57 Nitroglycerin (Nitroglycerin Sl 0.4 Mg/Tab Tab) 0.4 mg SL Q5M PRN PRN Reason: chest pain Stop: 01/10/21 15:50 Ondansetron HCl (Ondansetron 4 Mg Od Tab) 4 mg PO Q8H PRN PRN Reason: Nausea And Vomiting Stop: 01/09/21 16:12 Pantoprazole Sodium (Pantoprazole 40 Mg Tab) 40 mg PO BID [facility] Stop: 01/10/21 20:59 Last Admin: 12/14/20 09:59 Dose: 40 mg Documented by: Sodium Chloride (Sodium Chloride 1 Gm Tablet) 1 gm PO DAILY [facility] Stop: 01/11/21 14:44 Last Admin: 12/14/20 09:59 Dose: 1 gm Documented by: Topiramate (Topiramate 25 Mg Tab) 25 mg PO BID [facility] Stop: 01/09/21 20:59 Last Admin: 12/14/20 09:59 Dose: 25 mg Documented by: Umeclidinium [place] (Umeclidinium [place] 62.5mcg/Blister 7 Puffs/Inhaler) 1 puffs INH DAILY [facility] Stop: 01/10/21 08:59 Last Admin: 12/14/20 09:55 Dose: 1 puffs Documented by: Vitamin B Complex (Vitamin B Complex Tab) 1 tab PO DAILY [facility] Stop: 01/11/21 08:59 Last Admin: 12/14/20 09:59 Dose: 1 tab Documented by: Warfarin Sodium (Warfarin Sod 2 Mg Tab) 2 mg PO Tu@1600 [facility] Stop: 01/15/21 15:59 Warfarin Sodium (Warfarin Sod 4 Mg Tab) 4 mg PO SuMoWeThFrSa@1600 [facility] Stop: 01/10/21 16:59 Last Admin: 12/13/20 17:25 Dose: 4 mg Documented by:
[2020-12-14] MEDS: ATORVASTATIN 40 MG TAB PO SCH (21:58)
[2020-12-14] MEDS: MONTELUKAST SODIUM 10 MG TABLET PO SCH (21:59)
[2020-12-15 07:00] LABS: Eosinophils # (auto) 0.04 K/uL (0-0.5); Eosinophils % (auto) 0.4 %; Hemoglobin 9.4 g/dL (12.0-16.0); Immature Granulocytes # (auto) 0.03 K/uL (0.00-0.02); Immature Granulocytes % (auto) 0.3 %; Lymphocytes # (auto) 0.84 K/uL (1.2-3.4); Lymphocytes % (auto) 9.2 %; Mean Corpuscular Hgb Conc 36.2 g/dL (32-36); Mean Corpuscular Volume 85.8 fL (80-100); Mean Platelet Volume 8.5 fL (7.4-10.4); Monocytes # (auto) 0.32 K/uL (0.11-0.59); Monocytes % (auto) 3.5 %; Neutrophils % (auto) 86.6 %; Platelet Count 215 K/uL (130-400); RDW Coefficient of Variation 13.5 % (11.5-14.5); RDW Standard Deviation 42.7 fL (36.4-46.3); Red Blood Count 3.03 M/uL (4.2-5.4); White Blood Count 9.13 K/uL (4.8-10.8)
[2020-12-15 07:31] LABS: Potassium 2.9 mmol/L (3.5-5.1)
[2020-12-15 07:32] LABS: BUN Creatinine Ratio 13.2 (10-20); Calcium 8.6 mg/dl (8.5-10.1); Est GFR (Non-African American) 30.2 ml/min; Magnesium 1.5 mg/dl (1.8-2.4)
[2020-12-15] MEDS: UMECLIDINIUM BROMIDE 62.5MCG/BLISTER 7 PUFFS/INHALER INH SCH (08:45)
[2020-12-15] MEDS: FLUTICASONE/VILANTEROL 100/25MCG 14 PUFFS/INHALER INH SCH (08:45)
[2020-12-15] MEDS: ASPIRIN 81 MG ECTAB PO SCH (08:46)
[2020-12-15] MEDS: CALCIUM 600MG + VIT D 400 IU TAB PO SCH (08:46)
[2020-12-15] MEDS: COLCHICINE 0.6 MG TAB PO SCH ×2 (08:46→21:07)
[2020-12-15] MEDS: DULoxetine HCL 30 MG CAP PO SCH (08:46)
[2020-12-15] MEDS: GABAPENTIN 300 MG CAP PO SCH ×3 (08:47→21:08)
[2020-12-15] MEDS: lisinopril 20 MG TAB PO SCH (08:47)
[2020-12-15] MEDS: MULTIVITAMIN TAB PO SCH (08:48)
[2020-12-15] MEDS: METOCLOPRAMIDE HCL 5 MG TABLET PO SCH ×2 (08:48→21:07)
[2020-12-15] MEDS: MAGNESIUM OXIDE 400 MG TAB PO SCH (08:48)
[2020-12-15] MEDS: METOPROLOL TARTRATE 50 MG TAB PO SCH ×2 (08:48→21:09)
[2020-12-15] MEDS: SODIUM CHLORIDE 1 GM TABLET PO SCH (08:49)
[2020-12-15] MEDS: PANTOprazole 40 MG TAB PO SCH ×2 (08:49→21:09)
[2020-12-15] MEDS: TOPIRAMATE 25 MG TAB PO SCH ×2 (08:49→21:10)
[2020-12-15] MEDS: VITAMIN B COMPLEX TAB PO SCH (08:50)
[2020-12-15] MEDS ORDERED: POTASSIUM CHLORIDE CRTAB 20 MEQ TABCR PO STA (09:25)
[2020-12-15] MEDS: POTASSIUM CHLORIDE / WTR 10 MEQ/100 ML PLCT IV SCH (11:22)
[2020-12-15] MEDS: MAGNESIUM SULFATE / D5W 1 GM/100 ML BAG IV SCH (11:22)
--- NOTE | 2020-12-15 13:34 | Hospitalist Progress Note ---
Date of Service December 15, 2020 Assessment & Plan (1) Fatigue: Plan: Likely multifactorial releated to recent diarrhea, potential GI blood loss, worsening anemia, poor oral intake resulting in dehydration No more diarrhea and no more blood in the stool We will get PT and OT evaluation and may need placement Getting better gradually Denies any more fatigue and we will get PT and OT evaluation and discharge disposition following the recommendation She has been vaccinated for COVID-19 virus Noted to have positive COVID but no evidence of hypoxia at present - will continue to monitor, isolation precautions ordered No cough, shortness of breath, nausea and vomiting or desaturation Does not qualify for any treatment for COVID-19 infection No respiratory symptoms of Covid and no GI symptoms Her Covid remained asymptomatic Dyspepsia No vomiting Has been on PPI Will add Mylanta/Maalox as needed (2) Anemia: Plan: Monitor for stability due to concern for ongoing blood loss - will hold transf usion for now but if worsening anemia, may need to consider in view of pt's significant cardiac history Appreciate GI input and recommendation No more GI bleed and or melena Endoscopy as an outpatient-hemoglobin remains stable (3) Melena: Plan: Heme positive black stool in ED Normal melena and or diarrhea We will change the Protonix to p.o. twice daily No more melena and no bowel movement since admission (4) Pulmonary edema: (5) Acute kidney injury superimposed on CKD: Plan: Likely due to dehydration. Baseline creatinine as outpatient is 1.4-1.5 We will advised to drink reasonable amount of fluid Remains stable (6) Hyponatremia: Plan: Outpatient labs reviewed - appears to be chronic with baselined 125-127 History of chronic hyponatremia We will monitor in the hospital We will start sodium tablet 1 g daily and monitor PRP Sodium is 130 on 12/13/2020, 131 110 421 Hypokalemia and hypomagnesemia Take supplements at home We will provide and will be rechecked tomorrow (7) oysterman (current) use of anticoagulants: Plan: Goal INR is 2.5-3.5. Pt follows with anticoagulation clinic through [facility] We will restart Coumadin INR was 5.2 on 12/14/2020, Coumadin is on hold and will recheck tomorrow (8) History of aortic valve replacement with bioprosthetic valve: Plan: Denies any cardiac symptoms Awaiting cardiology evaluation (9) Dyslipidemia: (10) Arteriosclerotic coronary artery disease: (11) COPD, mild: Plan: No acute exacerbation (12) Anxiety: (13) Esophageal reflux: (14) Gastroparesis: Plan: Code Status: Full Code DVT prophylaxis: SCDs - AC On hold due to potential GI bleed Admission and Anticipated Discharge Date Admission Date: December 10, 2020 Subjective 12/11/2020 The patient was seen and examined in medical telemetry unit and in the Covid room She does not have any Covid related symptoms Complains of generalized weakness but no chest pain, palpitation or shortness of breath 12/12/2020 The patient was seen and examined in medical telemetry unit and in the Covid room She has been feeling much better with improvement of weakness and tiredness She does not have any Covid associated symptoms except weakness 12/13/2020 The patient was seen and examined in medical telemetry unit and in the Covid room She remains weak but getting better Denies any respiratory symptoms 12/14/2020 The patient was seen and examined in medical telemetry unit and in Covid room She has been complaining of dyspepsia Otherwise denies any symptoms 12/15/2020 The patient was seen and examined in medical telemetry unit and in Covid room She has been feeling much better Denies any shortness of breath, fever and/or chills Review of Systems Review of Systems: All systems reviewed and are unremarkable except as noted below Constitutional: General weakness Eyes: no diplopia Ear, Nose, Mouth, Throat: + epistaxis (2-3 episodes in past 2 weeks) and + sore throat; no dysphagia Respiratory: + cough; no dyspnea on exertion, no hemoptysis and no wheezing Cardiovascular: + lightheadedness; no chest pain, no palpitations, no syncope and no edema Gastrointestinal: Dyspepsia Genitourinary: no dysuria, no urinary frequency and no hematuria Musculoskeletal: + muscle weakness; no back pain and no neck pain Integumentary: + unusual bruising; no yellowing of the skin Neurologic: + unsteadiness, + falls, + generalized weakness, + headache(s) and + memory loss Psychiatric: + anxiety; no confusion and no hallucinations Physical Exam Physical Exam: Lying in bed comfortably Constitutional: + ill appearing and average body habitus Eyes: PERRL, conjunctivae normal, anicteric sclerae ENMT: external ear and nose normal, oropharynx normal Neck: trachea midline, no thyromegaly Respiratory: no respiratory distress Auscultation: lungs clear to auscultation bilaterally Cardiovascular: Rate/Rhythm: regular rate, regular rhythm and + bradycardic Heart Sounds: normal S1, normal S2 and + murmur (2/6 ESM over precordium) Gastrointestinal (Abdomen): Inspection/Auscultation: normal bowel sounds; abdomen not distended Percussion/Palpation: abdomen soft; abdomen nontender Musculoskeletal: No acute arthritis in any joint Neurologic: Alert, awake and oriented x3. No focal sensory or motor deficit appreciated Results & Data Results [facility]) Vital Signs (Past 12 Hours) Vital Signs Temp Pulse Pulse Resp BP BP Pulse Ox 12/15/20 11:57 73 12/15/20 11:54 37.5 C 71 18 103/68 97 12/15/20 11:47 12/15/20 08:14 37.4 C 64 16 94/60 L 94 12/15/20 03:28 37.4 C 63 18 93/63 L 95 Pulse Ox 12/15/20 11:57 12/15/20 11:54 12/15/20 11:47 97 12/15/20 08:14 12/15/20 03:28 Laboratory Results Short CBC 12/15/20 Range/Units 06:26 WBC 9.13 (4.8-10.8) K/uL Hgb 9.4 L (12.0-16.0) g/dL Hct 26.0 L (37-47) % Plt Count 215 (130-400) K/uL BMP 12/15/20 06:26 Sodium 131 L Potassium 2.9 L Chloride 98 Carbon Dioxide 21 BUN 23 H Creatinine 1.73 H D Glucose 103 H Calcium 8.6 Medications Administered Current Inpatient Medications Acetaminophen (Acetaminophen 325 Mg Tab) 650 mg PO Q4H PRN PRN Reason: Pain or Fever Stop: 01/09/21 16:57 Last Admin: 12/11/20 12:26 Dose: 650 mg Documented by: Al Hydrox/Mg Hydrox/Simethicone (Aluminum/Magnesium Susp 30 Ml Udc) 15 ml PO Q6H PRN PRN Reason: Dyspepsia Stop: 01/13/21 12:56 Albuterol (Albuterol Hfa 8 Gm Inhaler) 2 puffs INH QIDR PRN PRN Reason: shortness of breath or wheezin Stop: 01/10/21 15:50 Aspirin (Aspirin 81 Mg Ectab) 81 mg PO MoWeFr@0900 ERI Stop: 01/11/21 12:59 Last Admin: 12/15/20 08:46 Dose: 81 mg Documented by: Atorvastatin Calcium (Atorvastatin 40 Mg Tab) 40 mg PO HS ERI Stop: 01/09/21 20:59 Last Admin: 12/14/20 21:58 Dose: 40 mg Documented by: Clonazepam (Clonazepam 0.5 Mg Tab) 0.5 mg PO TID PRN PRN Reason: Anxiety Stop: 01/09/21 16:12 Colchicine (Colchicine 0.6 Mg Tab) 0.6 mg PO BID ERI Stop: 01/10/21 20:59 Last Admin: 12/15/20 08:46 Dose: 0.6 mg Documented by: Duloxetine HCl (Duloxetine Hcl 30 Mg Cap) 90 mg PO DAILY ERI Stop: 01/10/21 08:59 Last Admin: 12/15/20 08:46 Dose: 90 mg Documented by: Fluticasone/Vilanterol (Fluticasone/Vilanterol 100/25mcg 14 Puffs/Inhaler) 1 puffs INH DAILY ERI Stop: 01/10/21 08:59 Last Admin: 12/15/20 08:45 Dose: 1 puffs Documented by: Gabapentin (Gabapentin 300 Mg Cap) 300 mg PO TID ERI Stop: 01/09/21 20:59 Last Admin: 12/15/20 08:47 Dose: 300 mg Documented by: Magnesium Sulfate/Dextrose (Magnesium Sulfate / D5w) 1 gm in 100 mls @ 50 mls/hr IV Q2H ERI Stop: 12/15/20 13:59 Last Admin: 12/15/20 11:22 Dose: 50 mls/hr Documented by: Lisinopril (Lisinopril 20 Mg Tab) 20 mg PO DAILY ERI Stop: 01/11/21 08:59 Last Admin: 12/15/20 08:47 Dose: 20 mg Documented by: Loratadine (Loratadine 10 Mg Tab) 10 mg PO DAILY PRN PRN Reason: Allergy Symptoms Stop: 01/10/21 15:50 Magnesium Oxide (Magnesium Oxide 400 Mg Tab) 400 mg PO DAILY ERI Stop: 01/11/21 08:59 Last Admin: 12/15/20 08:48 Dose: 400 mg Documented by: Metoclopramide HCl (Metoclopramide Hcl 5 Mg Tablet) 5 mg PO BID ERI Stop: 01/09/21 20:59 Last Admin: 12/15/20 08:48 Dose: 5 mg Documented by: Metoprolol Tartrate (Metoprolol Tartrate 50 Mg Tab) 50 mg PO BID ERI Stop: 01/09/21 20:59 Last Admin: 12/15/20 08:48 Dose: Not Given Documented by: Montelukast Sodium (Montelukast Sodium 10 Mg Tablet) 10 mg PO HS ERI Stop: 01/09/21 20:59 Last Admin: 12/14/20 21:59 Dose: 10 mg Documented by: Multivitamins (Multivitamin Tab) 1 tab PO DAILY ERI Stop: 01/11/21 08:59 Last Admin: 12/15/20 08:48 Dose: 1 tab Documented by: Multivitamins/Minerals (Calcium 600mg + Vit D 400 Iu Tab) 2 tab PO DAILY ERI Stop: 01/11/21 08:59 Last Admin: 12/15/20 08:46 Dose: 2 tab Documented by: Nitroglycerin (Nitroglycerin Sl 0.4 Mg/Tab Tab) 0.4 mg SL Q5M PRN PRN Reason: chest pain Stop: 01/10/21 15:50 Ondansetron HCl (Ondansetron 4 Mg Od Tab) 4 mg PO Q8H PRN PRN Reason: Nausea And Vomiting Stop: 01/09/21 16:12 Pantoprazole Sodium (Pantoprazole 40 Mg Tab) 40 mg PO BID ERI Stop: 01/10/21 20:59 Last Admin: 12/15/20 08:49 Dose: 40 mg Documented by: Sodium Chloride (Sodium Chloride 1 Gm Tablet) 1 gm PO DAILY ERI Stop: 01/11/21 14:44 Last Admin: 12/15/20 08:49 Dose: 1 gm Documented by: Topiramate (Topiramate 25 Mg Tab) 25 mg PO BID ERI Stop: 01/09/21 20:59 Last Admin: 12/15/20 08:49 Dose: 25 mg Documented by: Umeclidinium [place] (Umeclidinium [place] 62.5mcg/Blister 7 Puffs/Inhaler) 1 puffs INH DAILY [facility] Stop: 01/10/21 08:59 Last Admin: 12/15/20 08:45 Dose: 1 puffs Documented by: Vitamin B Complex (Vitamin B Complex Tab) 1 tab PO DAILY [facility] Stop: 01/11/21 08:59 Last Admin: 12/15/20 08:50 Dose: 1 tab Documented by: Warfarin Sodium (Warfarin Sod 2 Mg Tab) 2 mg PO Tu@1600 [facility] Stop: 01/15/21 15:59 Warfarin Sodium (Warfarin Sod 4 Mg Tab) 4 mg PO SuMoWeThFrSa@1600 [facility] Stop: 01/10/21 16:59 Last Admin: 12/13/20 17:25 Dose: 4 mg Documented by:
[2020-12-15] MEDS: ATORVASTATIN 40 MG TAB PO SCH (21:07)
[2020-12-15] MEDS: MONTELUKAST SODIUM 10 MG TABLET PO SCH (21:10)
[2020-12-16 07:16] LABS: Prothrombin Time 51.4 Seconds (9.0-12.0)
[2020-12-16 07:20] LABS: INR 5.8 (0.9-1.1)
[2020-12-16 07:33] LABS: BUN Creatinine Ratio 12.2 (10-20); Calcium 8.6 mg/dl (8.5-10.1); Creatinine Clr Calc Pharmacy 24.2 ml/min; Est GFR (African American) 35.3 ml/min; Est GFR (Non-African American) 30.5 ml/min; Magnesium 2.2 mg/dl (1.8-2.4); Phosphorus 2.6 mg/dl (2.5-4.9); Potassium 3.5 mmol/L (3.5-5.1)
[2020-12-16] MEDS ORDERED: POTASSIUM CHLORIDE CRTAB 20 MEQ TABCR PO STA (08:34)
[2020-12-16] MEDS: CALCIUM 600MG + VIT D 400 IU TAB PO SCH (08:44)
[2020-12-16] MEDS: SODIUM CHLORIDE 1 GM TABLET PO SCH (08:44)
[2020-12-16] MEDS: lisinopril 20 MG TAB PO SCH (08:44)
[2020-12-16] MEDS: VITAMIN B COMPLEX TAB PO SCH (08:44)
[2020-12-16] MEDS: DULoxetine HCL 30 MG CAP PO SCH (08:44)
[2020-12-16] MEDS: TOPIRAMATE 25 MG TAB PO SCH ×2 (08:44→21:03)
[2020-12-16] MEDS: MULTIVITAMIN TAB PO SCH (08:44)
[2020-12-16] MEDS: MAGNESIUM OXIDE 400 MG TAB PO SCH (08:44)
[2020-12-16] MEDS: GABAPENTIN 300 MG CAP PO SCH ×3 (08:45→21:04)
[2020-12-16] MEDS: UMECLIDINIUM BROMIDE 62.5MCG/BLISTER 7 PUFFS/INHALER INH SCH (08:45)
[2020-12-16] MEDS: METOCLOPRAMIDE HCL 5 MG TABLET PO SCH ×2 (08:45→21:04)
[2020-12-16] MEDS: METOPROLOL TARTRATE 50 MG TAB PO SCH ×2 (08:45→21:03)
[2020-12-16] MEDS: FLUTICASONE/VILANTEROL 100/25MCG 14 PUFFS/INHALER INH SCH (08:45)
[2020-12-16] MEDS: PANTOprazole 40 MG TAB PO SCH ×2 (08:45→21:04)
[2020-12-16] MEDS: COLCHICINE 0.6 MG TAB PO SCH ×2 (08:45→21:05)
[2020-12-16] MEDS ORDERED: WARFARIN SOD 2 MG TAB PO SCH (16:00)
--- NOTE | 2020-12-16 18:29 | Hospitalist Progress Note ---
Date of Service December 16, 2020 Assessment & Plan (1) Fatigue: Plan: Likely multifactorial releated to recent diarrhea, potential GI blood loss, worsening anemia, poor oral intake resulting in dehydration No more diarrhea and no more blood in the stool We will get PT and OT evaluation and may need placement Getting better gradually Denies any more fatigue and we will get PT and OT evaluation and discharge disposition following the recommendation Orthostatic vitals were positive Will decrease the dose of lisinopril She has been vaccinated for COVID-19 virus Noted to have positive COVID but no evidence of hypoxia at present - will continue to monitor, isolation precautions ordered No cough, shortness of breath, nausea and vomiting or desaturation Does not qualify for any treatment for COVID-19 infection No respiratory symptoms of Covid and no GI symptoms Her Covid remained asymptomatic Dyspepsia No vomiting Has been on PPI Will add Mylanta/Maalox as needed (2) Anemia: Plan: Monitor for stability due to concern for ongoing blood loss - will hold transfusion for now but if worsening anemia, may need to consider in view of pt's significant cardiac history Appreciate GI input and recommendation No more GI bleed and or melena Endoscopy as an outpatient-hemoglobin remains stable (3) Melena: Plan: Heme positive black stool in ED Normal melena and or diarrhea We will change the Protonix to p.o. twice daily No more melena and no bowel movement since admission (4) Pulmonary edema: (5) Acute kidney injury superimposed on CKD: Plan: Likely due to dehydration. 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 Pt follows with [facility] We will restart Coumadin INR was 5.2 on 12/14/2020, Coumadin is on hold and will recheck tomorrow INR remains elevated will recheck tomorrow Will likely need to decrease the dose of Coumadin on discharge (8) History of aortic valve replacement with bioprosthetic valve: Plan: Denies any cardiac symptoms Awaiting cardiology evaluation-appreciate input and recommendation (9) Dyslipidemia: (10) Arteriosclerotic coronary artery disease: Plan: No acute cardiac symptoms (11) COPD, mild: Plan: No acute exacerbation (12) Anxiety: (13) Esophageal reflux: (14) Gastroparesis: Plan: Code Status: Full Code DVT prophylaxis: SCDs - AC On hold due to potential GI bleed Admission and Anticipated Discharge Date Admission Date: December 10, 2020 Subjective 12/11/2020 The patient was seen and examined in medical telemetry unit and in the Covid room She does not have any Covid related symptoms Complains of generalized weakness but no chest pain, palpitation or shortness of breath 12/12/2020 The patient was seen and examined in medical telemetry unit and in the Covid room She has been feeling much better with improvement of weakness and tiredness She does not have any Covid associated symptoms except weakness 12/13/2020 The patient was seen and examined in medical telemetry unit and in the Covid room She remains weak but getting better Denies any respiratory symptoms 12/14/2020 The patient was seen and examined in medical telemetry unit and in Covid room She has been complaining of dyspepsia Otherwise denies any symptoms 12/15/2020 The patient was seen and examined in medical telemetry unit and in Covid room She has been feeling much better Denies any shortness of breath, fever and/or chills 12/16/2020 The patient was seen and examined in medical telemetry unit and in Covid room She has been feeling much better but feels dizzy with ambulation She wants to go home She denies any chest pain, palpitation, shortness of breath, cough or phlegm Review of Systems Review of Systems: All systems reviewed and are unremarkable except as noted below Cardiovascular: Additional Comments: No chest pain and/or palpitation Physical Exam Physical Exam: Lying in bed comfortably Constitutional: + ill appearing and average body habitus Eyes: PERRL, conjunctivae normal, anicteric sclerae ENMT: external ear and nose normal, oropharynx normal Neck: trachea midline, no thyromegaly Respiratory: no respiratory distress Auscultation: lungs clear to auscultation bilaterally Cardiovascular: Rate/Rhythm: regular rate, regular rhythm and + bradycardic Heart Sounds: normal S1, normal S2 and + murmur (2/6 ESM over precordium) Gastrointestinal (Abdomen): Inspection/Auscultation: normal bowel sounds; abdomen not distended Percussion/Palpation: abdomen soft; abdomen nontender Musculoskeletal: No acute arthritis in any joint Neurologic: Awake and oriented x3 Results & Data Results & Data ([facility]) Vital Signs (Past 12 Hours) Vital Signs Temp Pulse Pulse Resp BP BP Pulse Ox 12/16/20 15:53 71 12/16/20 14:30 37.1 C 72 18 128/77 97 12/16/20 11:38 36.9 C 16 94 12/16/20 10:00 59 L 12/16/20 08:37 36.9 C 68 20 107/68 95 Laboratory Results [facility] 12/16/20 06:25 Sodium 132 L Potassium 3.5 D Chloride 101 Carbon Dioxide 21 BUN 21 H Creatinine 1.72 H Glucose 98 Calcium 8.6 Medications Administered Current Inpatient Medications Acetaminophen (Acetaminophen 325 Mg Tab) 650 mg PO Q4H PRN PRN Reason: Pain or Fever Stop: 01/09/21 16:57 Last Admin: 12/11/20 12:26 Dose: 650 mg Documented by: Al Hydrox/Mg Hydrox/Simethicone (Aluminum/Magnesium Susp 30 Ml Udc) 15 ml PO Q6H PRN PRN Reason: Dyspepsia Stop: 01/13/21 12:56 Albuterol (Albuterol Hfa 8 Gm Inhaler) 2 puffs INH QIDR PRN PRN Reason: shortness of breath or wheezin Stop: 01/10/21 15:50 Aspirin (Aspirin 81 Mg Ectab) 81 mg PO MoWeFr@0900 [facility] Stop: 01/11/21 12:59 Last Admin: 12/15/20 08:46 Dose: 81 mg Documented by: Atorvastatin Calcium (Atorvastatin 40 Mg Tab) 40 mg PO HS [facility] Stop: 01/09/21 20:59 Last Admin: 12/15/20 21:07 Dose: 40 mg Documented by: Clonazepam (Clonazepam 0.5 Mg Tab) 0.5 mg PO TID PRN PRN Reason: Anxiety Stop: 01/09/21 16:12 Colchicine (Colchicine 0.6 Mg Tab) 0.6 mg PO BID [facility] Stop: 01/10/21 20:59 Last Admin: 12/16/20 08:45 Dose: 0.6 mg Documented by: Duloxetine HCl (Duloxetine Hcl 30 Mg Cap) 90 mg PO DAILY ERI Stop: 01/10/21 08:59 Last Admin: 12/16/20 08:44 Dose: 90 mg Documented by: Fluticasone/Vilanterol (Fluticasone/Vilanterol 100/25mcg 14 Puffs/Inhaler) 1 puffs INH DAILY ERI Stop: 01/10/21 08:59 Last Admin: 12/16/20 08:45 Dose: 1 puffs Documented by: Gabapentin (Gabapentin 300 Mg Cap) 300 mg PO TID ERI Stop: 01/09/21 20:59 Last Admin: 12/16/20 14:31 Dose: 300 mg Documented by: Lisinopril (Lisinopril 20 Mg Tab) 20 mg PO DAILY ERI Stop: 01/11/21 08:59 Last Admin: 12/16/20 08:44 Dose: 20 mg Documented by: Loratadine (Loratadine 10 Mg Tab) 10 mg PO DAILY PRN PRN Reason: Allergy Symptoms Stop: 01/10/21 15:50 Magnesium Oxide (Magnesium Oxide 400 Mg Tab) 400 mg PO DAILY REI Stop: 01/11/21 08:59 Last Admin: 12/16/20 08:44 Dose: 400 mg Documented by: Metoclopramide HCl (Metoclopramide Hcl 5 Mg Tablet) 5 mg PO BID ERI Stop: 01/09/21 20:59 Last Admin: 12/16/20 08:45 Dose: 5 mg Documented by: Metoprolol Tartrate (Metoprolol Tartrate 50 Mg Tab) 50 mg PO BID ERI Stop: 01/09/21 20:59 Last Admin: 12/16/20 08:45 Dose: 50 mg Documented by: Montelukast Sodium (Montelukast Sodium 10 Mg Tablet) 10 mg PO HS ERI Stop: 01/09/21 20:59 Last Admin: 12/15/20 21:10 Dose: 10 mg Documented by: Multivitamins (Multivitamin Tab) 1 tab PO DAILY ERI Stop: 01/11/21 08:59 Last Admin: 12/16/20 08:44 Dose: 1 tab Documented by: Multivitamins/Minerals (Calcium 600mg + Vit D 400 Iu Tab) 2 tab PO DAILY [facility] Stop: 01/11/21 08:59 Last Admin: 12/16/20 08:44 Dose: 2 tab Documented by: Nitroglycerin (Nitroglycerin Sl 0.4 Mg/Tab Tab) 0.4 mg SL Q5M PRN PRN Reason: chest pain Stop: 01/10/21 15:50 Ondansetron HCl (Ondansetron 4 Mg Od Tab) 4 mg PO Q8H PRN PRN Reason: Nausea And Vomiting Stop: 01/09/21 16:12 Pantoprazole Sodium (Pantoprazole 40 Mg Tab) 40 mg PO BID [facility] Stop: 01/10/21 20:59 Last Admin: 12/16/20 08:45 Dose: 40 mg Documented by: Sodium Chloride (Sodium Chloride 1 Gm Tablet) 1 gm PO DAILY [facility] Stop: 01/11/21 14:44 Last Admin: 12/16/20 08:44 Dose: 1 gm Documented by: Topiramate (Topiramate 25 Mg Tab) 25 mg PO BID [facility] Stop: 01/09/21 20:59 Last Admin: 12/16/20 08:44 Dose: 25 mg Documented by: Umeclidinium Raven (Umeclidinium Raven 62.5mcg/Blister 7 Puffs/Inhaler) 1 puffs INH DAILY [facility] Stop: 01/10/21 08:59 Last Admin: 12/16/20 08:45 Dose: 1 puffs Documented by: Vitamin B Complex (Vitamin B Complex Tab) 1 tab PO DAILY [facility] Stop: 01/11/21 08:59 Last Admin: 12/16/20 08:44 Dose: 1 tab Documented by: Warfarin Sodium (Warfarin Sod 2 Mg Tab) 2 mg PO Tu@1600 [facility] Stop: 01/15/21 15:59 Warfarin Sodium (Warfarin Sod 4 Mg Tab) 4 mg PO SuMoWeThFrSa@1600 [facility] Stop: 01/10/21 16:59 Last Admin: 12/13/20 17:25 Dose: 4 mg Documented by:
[2020-12-16] MEDS: ATORVASTATIN 40 MG TAB PO SCH (21:02)
[2020-12-16] MEDS: MONTELUKAST SODIUM 10 MG TABLET PO SCH (21:03)
[2020-12-17 08:02] LABS: BUN Creatinine Ratio 12.6 (10-20); Calcium 8.5 mg/dl (8.5-10.1); Creatinine Clr Calc Pharmacy 30.5 ml/min; Est GFR (African American) 46.5 ml/min; Est GFR (Non-African American) 40.1 ml/min; Magnesium 2.1 mg/dl (1.8-2.4); Potassium 3.6 mmol/L (3.5-5.1)
[2020-12-17 08:07] LABS: Hematocrit (blood only) 27.7 % (37-47); Hemoglobin 9.6 g/dL (12.0-16.0); Mean Corpuscular Hemoglobin 30.5 pg (25-34); Mean Corpuscular Hgb Conc 34.7 g/dL (32-36); Mean Corpuscular Volume 87.9 fL (80-100); Mean Platelet Volume 8.8 fL (7.4-10.4); Platelet Count 326 K/uL (130-400); RDW Coefficient of Variation 13.8 % (11.5-14.5); RDW Standard Deviation 44.4 fL (36.4-46.3); Red Blood Count 3.15 M/uL (4.2-5.4); White Blood Count 4.64 K/uL (4.8-10.8)
[2020-12-17 08:08] LABS: Basophils # (auto) 0.01 K/uL (0-0.2); Basophils % (auto) 0.2 %; Eosinophils # (auto) 0.18 K/uL (0-0.5); Eosinophils % (auto) 3.9 %; Immature Granulocytes # (auto) 0.04 K/uL (0.00-0.02); Immature Granulocytes % (auto) 0.9 %; Lymphocytes % (auto) 23.7 %; Monocytes # (auto) 0.31 K/uL (0.11-0.59); Monocytes % (auto) 6.7 %; Neutrophils % (auto) 64.6 %
[2020-12-17] MEDS: PANTOprazole 40 MG TAB PO SCH ×2 (08:23→22:14)
[2020-12-17] MEDS: TOPIRAMATE 25 MG TAB PO SCH ×2 (08:23→22:13)
[2020-12-17] MEDS: METOPROLOL TARTRATE 50 MG TAB PO SCH ×2 (08:24→21:46)
[2020-12-17] MEDS: DULoxetine HCL 30 MG CAP PO SCH (08:24)
[2020-12-17] MEDS: COLCHICINE 0.6 MG TAB PO SCH ×2 (08:24→22:13)
[2020-12-17] MEDS: CALCIUM 600MG + VIT D 400 IU TAB PO SCH (08:24)
[2020-12-17] MEDS: MAGNESIUM OXIDE 400 MG TAB PO SCH (08:24)
[2020-12-17] MEDS: METOCLOPRAMIDE HCL 5 MG TABLET PO SCH ×2 (08:24→22:13)
[2020-12-17] MEDS: VITAMIN B COMPLEX TAB PO SCH (08:24)
[2020-12-17] MEDS: GABAPENTIN 300 MG CAP PO SCH ×3 (08:24→22:13)
[2020-12-17] MEDS: MULTIVITAMIN TAB PO SCH (08:24)
[2020-12-17] MEDS: SODIUM CHLORIDE 1 GM TABLET PO SCH (08:24)
[2020-12-17] MEDS: FLUTICASONE/VILANTEROL 100/25MCG 14 PUFFS/INHALER INH SCH (08:25)
[2020-12-17] MEDS: lisinopril 10 MG TAB PO SCH (08:25)
[2020-12-17] MEDS: ASPIRIN 81 MG ECTAB PO SCH (08:25)
[2020-12-17] MEDS: UMECLIDINIUM BROMIDE 62.5MCG/BLISTER 7 PUFFS/INHALER INH SCH (08:25)
[2020-12-17 11:23] LABS: Prothrombin Time 36.1 Seconds (9.0-12.0)
--- NOTE | 2020-12-17 21:44 | Hospitalist Progress Note ---
Date of Service December 17, 2020 Assessment & Plan (1) Fatigue: Plan: Likely multifactorial releated to recent diarrhea, potential GI blood loss, worsening anemia, poor oral intake resulting in dehydration No more diarrhea and no more blood in the stool We will get PT and OT evaluation and may need placement Getting better gradually Denies any more fatigue and we will get PT and OT evaluation and discharge disposition following the recommendation Orthostatic vitals were positive Will decrease the dose of lisinopril She has been vaccinated for COVID-19 virus Noted to have positive COVID but no evidence of hypoxia at present - will continue to monitor, isolation precautions ordered No cough, shortness of breath, nausea and vomiting or desaturation Does not qualify for any treatment for COVID-19 infection No respiratory symptoms of Covid and no GI symptoms Her Covid remained asymptomatic Dyspepsia No vomiting Has been on PPI Will add Mylanta/Maalox as needed (2) Anemia: Plan: Monitor for stability due to concern for ongoing blood loss - will hold transfusion for now but if worsening anemia, may need to consider in view of pt's significant cardiac history Appreciate GI input and recommendation No more GI bleed and or melena Endoscopy as an outpatient-hemoglobin remains stable (3) Melena: Plan: Heme positive black stool in ED Normal melena and or diarrhea We will change the Protonix to p.o. twice daily No more melena and no bowel movement since admission (4) Pulmonary edema: (5) Acute kidney injury superimposed on CKD: Plan: Likely due to dehydration. Baseline creatinine as outpatient is 1.4-1.5 We will advised to drink reasonable amount of fluid Remains stable (6) Hyponatremia: Plan: Outpatient labs reviewed - appears to be chronic with baselined 125-127 History of chronic hyponatremia We will monitor in the hospital We will start sodium tablet 1 g daily and monitor PRP Sodium is 131 on 12/16/2020 Hypokalemia and hypomagnesemia Take supplements at home We will provide and will be rechecked tomorrow (7) [facility] (current) use of anticoagulants: Plan: Goal INR is 2.5-3.5. [facility] We will restart Coumadin INR was 5.2 on 12/14/2020, Coumadin is on hold and will recheck tomorrow INR remains elevated will recheck tomorrow Will likely need to decrease the dose of Coumadin on discharge (8) History of aortic valve replacement with bioprosthetic valve: Plan: Denies any cardiac symptoms Awaiting cardiology evaluation-appreciate input and recommendation (9) Dyslipidemia: (10) Arteriosclerotic coronary artery disease: Plan: No acute cardiac symptoms (11) COPD, mild: Plan: No acute exacerbation (12) Anxiety: (13) Esophageal reflux: (14) Gastroparesis: Plan: Code Status: Full Code DVT prophylaxis: SCDs - AC On hold due to potential GI bleed Admission and Anticipated Discharge Date Admission Date: December 10, 2020 Results & Data Results & Data ([facility]) Vital Signs (Past 12 Hours) Vital Signs Temp Pulse Pulse Resp BP Pulse Ox 12/17/20 20:47 36.8 C 78 18 105/69 96 12/17/20 16:00 80 12/17/20 15:00 37.0 C 79 18 113/65 98 12/17/20 11:06 36.8 C 71 16 123/56 L 98 12/17/20 09:56 77
[2020-12-17] MEDS: ATORVASTATIN 40 MG TAB PO SCH (22:13)
[2020-12-17] MEDS: MONTELUKAST SODIUM 10 MG TABLET PO SCH (22:14)
[2020-12-17] MEDS ORDERED: COUGH DROP (SUGAR FREE) LOZ 24 LOZ/1 BOX BUCCAL PRN (22:28)
[2020-12-18 07:59] LABS: INR 2.7 (0.9-1.1); Prothrombin Time 25.3 Seconds (9.0-12.0)
[2020-12-18 08:05] LABS: BUN Creatinine Ratio 11.7 (10-20); Calcium 8.7 mg/dl (8.5-10.1); Creatinine Clr Calc Pharmacy 34.6 ml/min; Est GFR (Non-African American) 46.6 ml/min; Potassium 3.9 mmol/L (3.5-5.1)
[2020-12-18] MEDS: DULoxetine HCL 30 MG CAP PO SCH (09:05)
[2020-12-18] MEDS: FLUTICASONE/VILANTEROL 100/25MCG 14 PUFFS/INHALER INH SCH (09:06)
[2020-12-18] MEDS: lisinopril 10 MG TAB PO SCH (09:06)
[2020-12-18] MEDS: GABAPENTIN 300 MG CAP PO SCH ×2 (09:06→13:42)
[2020-12-18] MEDS: COLCHICINE 0.6 MG TAB PO SCH (09:06)
[2020-12-18] MEDS: CALCIUM 600MG + VIT D 400 IU TAB PO SCH (09:06)
[2020-12-18] MEDS: PANTOprazole 40 MG TAB PO SCH (09:07)
[2020-12-18] MEDS: MULTIVITAMIN TAB PO SCH (09:07)
[2020-12-18] MEDS: MAGNESIUM OXIDE 400 MG TAB PO SCH (09:07)
[2020-12-18] MEDS: METOCLOPRAMIDE HCL 5 MG TABLET PO SCH (09:07)
[2020-12-18] MEDS: METOPROLOL TARTRATE 50 MG TAB PO SCH (09:07)
[2020-12-18] MEDS: UMECLIDINIUM BROMIDE 62.5MCG/BLISTER 7 PUFFS/INHALER INH SCH (09:08)
[2020-12-18] MEDS: TOPIRAMATE 25 MG TAB PO SCH (09:08)
[2020-12-18] MEDS: SODIUM CHLORIDE 1 GM TABLET PO SCH (09:08)
[2020-12-18] MEDS: VITAMIN B COMPLEX TAB PO SCH (09:08)
--- NOTE | 2020-12-18 15:29 | Discharge Summary ---
Date of Service December 18, 2020 Admission HPI Per Admitting Provider This is a 65 y/o female with a complicated PMH including CAD, valvular heart disease, prior AVR, prior ventricular fibrillation, chronic anticoagulation, COPD, anemia, hyponatremia, gastroparesis, GERD, dyslipidemia, CKD, anxiety, osteoporosis, and migraines who presents to the ED today with progressive weakness, fatigue, and recurrent falls. The patient struggled with giving the history so her at bedside helped answer some of the questions. Additionally, her outpatient records were extensively reviewed. Apparently, she started with diarrhea about 2-3 weeks ago with up to six BM/day and nocturnal stooling. She does note that stools have been black in color but no bright blood. Diarrhea seems to be improving over last couple days - last BM was yesterday, still black but less loose. She thinks that she may have taken Pepto for the diarrhea at some point but has not been taking it consistently. She is on chronic anticoagulation and aspirin 3-4x/week but denies ibuprofen or naproxen. She has noted nausea and a decreased appetite with poor oral intake over the past several days. She denies vomiting, heartburn, indigestion, significant abdominal pain or dysphagia. She reports that she has not been feeling herself for quite a while but things have especially worsened over the past two weeks. She is easily fatigued with minimal activity. Her reports that she may sleep 16 hours in a day and still feel tired. She has also been "spacing out" frequently when he is talking to her. She notes dizziness with position changes. She denies chest pain, palpitations, SOB, DILLON, or wheezing. She has noted a sore throat for the past week with associated cough that is intermittently productive. She denies fevers, chills or sweats. No change in taste or smell. No significant pedal edema. No known sick contacts or recent travel. She was vaccinated for COVID with the Moderna vaccine - second dose in June. Discharge Data Allergies Allergy/AdvReac Type Severity Reaction Status Date / Time paroxetine Allergy Unknown UNKNOWN Verified 04/03/20 14:58 sumatriptan Allergy Unknown UNKNOWN Verified 04/03/20 14:58 citalopram AdvReac Intermediate AGITATION, Verified 04/03/20 14:58 BURNING SENSATION dicyclomine AdvReac Intermediate HEADACHE Verified 04/03/20 14:58 lactose AdvReac Unknown Diarrhea Verified 12/17/20 15:35 Consultations 12/10/20 14:15 ED Decision to Admit Stat 12/10/20 16:58 Consult Gastroenterology Routine 12/11/20 09:06 Consult Cardiology Routine Ordered Studies 12/10/20 11:55 CT cervical spine wo con Stat CT facial bones wo con Stat CT head/brain wo con Stat 12/10/20 12:57 CT abd pelvis wo con Stat 12/12/20 14:30 US venous doppler LE BI Urgent Discharge Plan Discharge Items Patient Disposition: Home - Self-Care Reason For Visit: WEAKNESS, ANEMIA, MINDY Discharge Diagnosis: Covid 19 Anemia: Melena: Pulmonary edema: Acute kidney injury superimposed on CKD: Hyponatremia: Hypokalemia 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: History of aortic valve replacement with bioprosthetic valve: Dyslipidemia: Arteriosclerotic coronary artery disease: Anxiety: Esophageal reflux: Gastroparesis: Activity: Resume your previous activity Non-emergency contact: Primary Care Provider and Psych Coordinator Call non-emergency contact if: you have any medication questions Follow-up/Referrals: Radha Rodriguez MD [Primary Care Provider] - (Date & Time 12/23/2020 3:00 PM Provider Angelia Oseguera PA-C Department [facility] ) Cory Esquivel DO [Psych Coordinator] - (Date & Time 12/23/2020 1:30 PM Provider Cory Esquivel DO Department Cardiology [facility] ) Diet: Heart Healthy Addtl Attending Provider Instructions: Follow up with your primary care provider Angelia CORADO on 12/23/2020 at 3:00 PM at the Family Medicine [facility] Follow up with your cardiology Dr. Esquivel on at1:30 PM Provider at [facility] Follow up with gastroenterology to arrange for outpatient scope ( your provider will arrange for the referral Follow up with the coumadin clinic to monitor your PT/INR Continue practice social distance and wearing mask Fall precaution Continue monitor your blood pressure Avoid any other NSAID such as motrin, aleve, naproxen, ibuprofen, Advil due to risk of bleeding Check CB in 1 week to monitor your hemoglobin Check BMP in 1 week to monitor your electrolytes and renal function Home Isolation COVID-19 Instructions The following information about Home Isolation is from the CDC Website: https://www.cdc.gov/coronavirus/2019-ncov/hcp/ktefkfwz-hyshzpr-semyex.html Stay home except to get medical care People who are mildly ill with COVID-19 are able to isolate at home during their illness. You should restrict activities outside your home, except for getting medical care. Do not go to work, school, or public areas. Avoid using public transportation, ride-sharing, or taxis. Separate yourself from other people and animals in your home People: As much as possible, you should stay in a specific room and away from other people in your home. Also, you should use a separate bathroom, if available. Animals: You should restrict contact with pets and other animals while you are sick with COVID-19, just like you would around other people. Although there have not been reports of pets or other animals becoming sick with COVID-19, it is still recommended that people sick with COVID-19 limit contact with animals until more information is known about the virus. When possible, have another member of your household care for your animals while you are sick. If you are sick with COVID-19, avoid contact with your pet, including petting, snuggling, being kissed or licked, and sharing food. If you must care for your pet or be around animals while you are sick, wash your hands before and after you interact with pets and wear a face mask. Call ahead before visiting your doctor If you have a medical appointment, call the healthcare provider and tell them that you have or may have COVID-19. This will help the healthcare providers office take steps to keep other people from getting infected or exposed. Wear a face mask You should wear a face mask when you are around other people (e.g., sharing a room or vehicle) or pets and before you enter a healthcare providers office. If you are not able to wear a face mask (for example, because it causes trouble breathing), then people who live with you should not stay in the same room with you, or they should wear a face mask if they enter your room. Cover your coughs and sneezes Cover your mouth and nose with a tissue when you cough or sneeze. Throw used tissues in a lined trash can. Immediately wash your hands with soap and water for at least 20 seconds or, if soap and water are not available, clean your hands with an alcohol-based hand test car driver that contains at least 60% alcohol. Clean your hands often Wash your hands often with soap and water for at least 20 seconds, especially after blowing your nose, coughing, or sneezing; going to the bathroom; and before eating or preparing food. If soap and water are not readily available, use an alcohol-based hand test car driver with at least 60% alcohol, covering all surfaces of your hands and rubbing them together until they feel dry. Soap and water are the best option if hands are visibly dirty. Avoid touching your eyes, nose, and mouth with unwashed hands. Avoid sharing personal household items You should not share dishes, drinking glasses, cups, eating utensils, towels, or bedding with other people or pets in your home. After using these items, they should be washed thoroughly with soap and water. Clean all high-touch surfaces everyday High touch surfaces include counters, tabletops, doorknobs, bathroom fixtures, toilets, phones, keyboards, tablets, and bedside tables. Also, clean any surfaces that may have blood, stool, or body fluids on them. Use a household cleaning spray or wipe, according to the label instructions. Labels contain instructions for safe and effective use of the cleaning product including precautions you should take when applying the product, such as wearing gloves and making sure you have good ventilation during use of the product. Monitor your symptoms Seek prompt medical attention if your illness is worsening (e.g., difficulty breathing).Beforeseeking care, call your healthcare provider and tell them that you have, or are being evaluated for, COVID-19. Put on a face mask before you enter the facility. These steps will help the healthcare providers office to keep other people in the office or waiting room from getting infected or exposed. Ask your healthcare provider to call the local or state health department. Persons who are placed under active monitoring or facilitated self- monitoring should follow instructions provided by their local health department or occupational health professionals, as appropriate. When working with your local health department check their available hours. If you have a medical emergency and need to call 911, notify the dispatch personnel that you have, or are being evaluated for COVID-19. If possible, put on a face mask before emergency medical services arrive. Discontinuing home isolation Patients with confirmed COVID-19 should remain under home isolation precautions until the risk of secondary transmission to others is thought to be low. The decision to discontinue home isolation precautions should be made on a dlkg-gc-wobb basis, in consultation with healthcare providers and state and local health departments. Coronavirus disease 2019 (COVID-19) is a virus that causes a respiratory illness. It is caused by a coronavirus called 2019 novel coronavirus (2019- nCoV). There are many types of coronavirus. Coronaviruses are a very common cause of bronchitis. They may sometimes cause lung infection(pneumonia). Symptoms can range from mild to severe respira tory illness. These viruses are also foundin some animals. COVID-19 was first found in people in [facility], in late 2018. In 2020, several cases of COVID- 19 have been confirmed in the [place] Public health officials are working to find the source. How the virus spreads is not yet fully known. It may be spread through droplets of fluid that a person coughs or sneezes into the air. It may be spread if you touch a surface with virus on it, such as a handle or object, and then touch your mouth. What are the symptoms of COVID-19? Some people have no symptoms or mild symptoms. Symptoms may appear 2 to 14 days after contact with the virus. Symptoms can include: Fever Coughing Trouble breathing What are possible complications from COVID-19? In many cases, this virus can cause infection (pneumonia) in both lungs. In some cases, this can cause . How is COVID-19 diagnosed? Your healthcare provider will ask about your symptoms. He or she will also ask about your recent travel and contact with sick people. Testing for the virus is only done through the CDC. If yourhealthcare provider thinks you may have COVID- 19, he or she will work with your local health department and the CDC on testing. Follow all instructions from your healthcare provider. COVID-19 is diagnosed by: Nasal and throat swab. A cotton-tipped swab is wiped inside your nose or throat. This is done to check for viruses in your nasal mucus. Sputum culture. A small sample of mucus coughed from your lungs (sputum) is collected if you have a cough. It is checked for the virus. How is COVID-19 treated? There is currently no medicine to treat the virus. Treatment is done to help your body while it fights the virus. This is known as supportive care. Supportive care may include: Pain medicine. These include acetaminophen and ibuprofen. They are used to help ease pain and reduce fever. Bed rest. This helps your body fight the illness. For severe illness, you may need to stay in the hospital. Care during severe illness may include: IV (intravenous) fluids.These are given through a vein to help keep your body hydrated. Oxygen. Supplemental oxygen or ventilation with a breathing machine (ventilator) may be given. This is done to keep enough oxygen in your body. Are you at risk for COVID-19? If youve been to a place where people have been sick with this virus, you are at risk for infection. You are at risk if you: Recently traveled to an affected area Had contact with a sick person who recently traveled to this area Had contact with a person who was diagnosed with COVID-19 How can COVID-19 be prevented? There is no vaccine yet. The best prevention is to not have contact with the virus. The CDC advises that people should not travel to areas where there are COVID-19 outbreaks right now for any reason that is not urgent. To help prevent spreading the infection, wash your hands often, or use an alcohol-basedhand test car driver. If you are in an area with COVID-19: Wash your hands often. Or use an alcohol-based hand test car driver often. Only touch your eyes, nose, or mouth with clean hands. Dont have contact with people who are sick. Follow local instructions about being in public. For example, you may be told to not use public transport for a period of time. Stay away from markets that have live or animals. Wash your hands after touching any animals. Don't touch animals that may be si ck. Dont share eating or drinking tools with sick people. Dont kiss someone who is sick. Clean surfaces often with disinfectant. If you were in an area with COVID-19 in the last 14 days: Call your healthcare provider. He or she can talk with local health staff to see what action may be needed. Follow all instructions from your provider. Take your temperature every morning and evening for at least 14 days. This is to check for fever. Keep a record of the readings. Keep watch for symptoms of the virus. Tell your provider right away if you have symptoms. If you were in an area with COVID-19 and have a fever or other symptoms: Dont panic. Keep in mind that other illnesses can cause similar symptoms. Stay away from work, school, and public places. Limit physical contact with family members. Don't kiss anyone or share eating or drinking utensils. Clean surfaces you touch with disinfectant. This is to help prevent the virus from spreading. Call your healthcare provider. Explain that you have been exposed to COVID-19 and have symptoms. Do this before going to any hospital. Wait for instructions. Keep in mind that healthcare staff may wear protective equipment such as masks, gowns, gloves, and eye protection. You may be put in a separate room. This is to prevent the possible virus from spreading. Tell the healthcare staff about recent travel. This includes local travel on public transport. Staff may need to find other people you have been in contact with. Follow all instructions the healthcare staff give you. If you have been diagnosed with COVID-19 Follow all instructions from your healthcare provider. Dont leave your home, except to get medical care. Call your healthcare providers office before going. They can prepare and give you instructions. This will help prevent the virus from spreading. Dont go to work, school, or public areas. Dont use public transport or taxis. Stay away from other people in your home. Have them wear face masks around you. Dont share household items or food. Wear a face mask if you can. This includes at home or in a medical facility. Cover your face with a tissue when you cough or sneeze. Throw the tissue away. Wash your hands. Wash your hands often. Caregivers should: Follow all instructions from healthcare staff. Wear a face mask and protective clothing as advised. Wash hands often. Keep track of the sick persons symptoms. Clean surfaces, fabrics, and laundry thoroughly. Keep other people away from the sick person. When to call your healthcare provider Call your healthcare provider: If youve recently traveled and have symptoms If you have been diagnosed with COVID-19 and your symptoms are worse To learn more To find out more about COVID-19, visit the CDC website at www.cdc.gov/coronavirus/2019-ncov/index.html. [employer]. [address] [place] [address], [place] [address]. All rights reserved. This information is not intended as a substitute for professional medical care. Always follow your healthcare professional's instructions. This information has been adapted from [employer] Pending Studies at Discharge: No Stand-Alone Forms: My [facility] Retidoc, Smoking Cessation Medications and DC Order Prescriptions: New lisinopril 10 mg Tablet 10 mg PO DAILY 30 Days Qty: 30 RF: 0 Continued albuterol sulfate [Proventil HFA] 90 mcg/actuation HFA aerosol inhaler 2 puffs INH QID PRN (Reason: shortness of breath or wheezing) Qty: 8 RF: 2 Spiriva with HandiHaler 18 mcg capsule, w/inhalation device 1 cap INH DAILY Qty: 90 RF: 2 lansoprazole 30 mg capsule,delayed release(DR/EC) 30 mg PO DAILY Qty: 30 RF: 2 colchicine 0.6 mg tablet 0.6 mg PO BID Qty: 60 RF: 2 Breo Ellipta 100-25 mcg/dose blister with device 1 puffs INH DAILY Qty: 60 RF: 2 magnesium oxide 400 mg magnesium tablet 400 mg PO DAILY Qty: 30 RF: 0 nitroglycerin 0.4 mg tablet, sublingual 0.4 mg SL Q5M PRN (Reason: chest pain) Qty: 20 RF: 3 metoprolol tartrate 50 mg tablet 50 mg PO BID Qty: 180 RF: 3 aspirin 81 mg tablet,delayed release (DR/EC) 81 mg PO .COMPLEX Qty: 30 RF: 2 spironolactone 25 mg tablet 25 mg PO DAILY Qty: 30 RF: 2 multivitamin [Multiple Vitamins] tablet 1 tab PO DAILY RF: 0 calcium carbonate-vitamin D3 500 mg(1,250mg) -200 unit tablet 2 tab PO DAILY RF: 0 montelukast 10 mg tablet 10 mg PO HS RF: 0 metoclopramide HCl 5 mg tablet 5 mg PO BID RF: 0 clonazepam 0.5 mg tablet 0.5 mg PO TID PRN (Reason: Anxiety) RF: 0 acetaminophen 500 mg tablet 500 mg PO HS PRN (Reason: Pain, Moderate) RF: 0 ondansetron HCl 4 mg tablet 4 mg PO Q8H PRN (Reason: Nausea And Vomiting) RF: 0 vitamin B complex tablet 1 tab PO DAILY RF: 0 gabapentin 300 mg capsule 300 mg PO TID RF: 0 atorvastatin 40 mg tablet 40 mg PO HS RF: 0 duloxetine 60 mg capsule,delayed release(DR/EC) 90 mg PO DAILY RF: 0 warfarin 2 mg tablet See Rx Instructions .ROUTE .COMPLEX RF: 0 loratadine 10 mg Tablet 10 mg PO DAILY PRN (Reason: Allergy Symptoms) RF: 0 Prolia 60 mg/mL Syringe 60 mg SUBCUT DIRECTED RF: 0 topiramate 25 mg tablet 25 mg PO BID RF: 0 Discontinued lisinopril 20 mg tablet 20 mg PO DAILY Qty: 90 RF: 3 hydrochlorothiazide 12.5 mg tablet 12.5 mg PO DAILY Qty: 30 RF: 2 Discharge Orders: Discharge Order (Routine); Ordered 12/18/20 Ordered By: Meri Guadarrama Admission Data Admit Date/Time: 12/10/20 15:29 Attending Provider: Meri Guadarrama Admit Provider: Shy Mehta Primary Care Provider: Radha Rodriguez Other Providers: Shy Mehta ; Andres Mccormick ; Mike Weber ; Krystina Carr
[2020-12-18] MEDS ORDERED: WARFARIN SOD 3 MG TAB PO ONE (16:15)
== END 2020-12-18 17:25 | disposition home or self-care (01) | DRG 811 ==
LOC: ED 11:30 → 2N 15:29 → SUATTDRO 15:29 → 2N 16:19